=== PATIENT | female | born 1985 | race Caucasian/White ===

== ENCOUNTER 2024-04-16 14:20 | Emergency (ER) | payer BC, SELFPAY ==
--- NOTE | ~2024-04-16 | XR_ITS ---
EXAM: XR wrist RT min 3V DATE: 04/16/2024 14:54 HISTORY: DORSAL PAIN AFTER LIFTING,HX 3 NECROTIC BONES REMOVED . COMPARISON: None available. FINDINGS: Normal mineralization. No fracture or dislocation. No lytic or blastic lesion. Status post scaphoid lunate and triquetrum resections. Irregular ossified fragments anteriorly and posteriorly m ay represent residual portions of those bones or heterotopic ossification. Mild degenerative changes at the radiocarpal articulation and in the second carpal row. No erosion or periosteal change. Soft t issues within normal limits. IMPRESSION: No acute osseous finding in the right wrist. Reviewed, dictated and finalized at location K.
[2024-04-16 14:27] VITALS: BP 127/73; PULSE 76; RESP 16; TEMP 36.9; O2SAT 100
--- NOTE | 2024-04-16 14:56 | ED.UPPEXIN ---
HPI - Extremity Injury (Upper) General Chief Complaint: Extremity Injury, Upper Stated Complaint: right wrist Pain Source: patient Mode of arrival: ambulatory Limitations: no limitations History of Present Illness HPI narrative: [age] year old female presented for c/o right wrist pain after injury today at work. She states she was moving several boxes when she felt a sharp pain in the wrist. Now reports decreased range of motion and swelling over the wrist near thumb. She states it hurts to 'move it backwards.' She applied ice and stephan wrap. 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 Denies numbness, tingling weakness, bruising or deformity. Related Data Home Medications Medication Instructions Recorded Confirmed buspirone 15 mg tablet 15 mg PO DAILY 04/16/24 04/16/24 sertraline 100 mg tablet 100 mg PO DAILY 04/16/24 04/16/24 Allergies Allergy/AdvReac Type Severity Reaction Status Date / Time Penicillins Allergy Hives Verified 04/16/24 14:54 Review of Systems Review of Systems: CONSTITUTIONAL: Denies body aches, fever, chills CARDIOVASCULAR: Denies chest pain, palpitations, or edema. RESPIRATORY: Denies cough or dyspnea. SKIN: Denies rash, itching, or wounds. MUSCULOSKELETAL: reports right wrist pain NEUROLOGIC: Denies headache, numbness, tingling, or weakness. PSYCH: Denies depression or anxiety. All systems reviewed & are unremarkable except as noted in HPI and below [facility] Comments At time of signature, I have reviewed and agree with nursing past medical, surgical, social and family history unless otherwise noted. Please see nursing chart for further information. There is no relevant family history pertinent to the presenting complaint Exam Narrative: GENERAL: Well-appearing CHEST: Speaks in full sentences. No respiratory distress. HEART: Regular rate and rhythm. Normal and equal peripheral pulses. EXTREMITIES: Right wrist with decreased range of motion due to pain with movement. Reports painful finger cascade and with making fist. mild swelling to dorsal radial metacarpal area, tender with palpation. Right hand has normal strength and sensation, No ecchymosis. No open wounds, or obvious deformity; alignment normal, pulse palpable and equal bilaterally, skin warm, dry, pink. Capillary refill less than 3 seconds. SKIN: Warm, dry, no rash. NEURO: Alert and oriented x3. PSYCH: Normal mood and affect Course Course Emergency Course: Patient is aware of diagnosis, understands and agrees to treatment plan. Anticipatory guidance given. Patient agrees to follow-up as directed and is aware of reasons to seek care at the emergency department. Portions of this record may have been created with voice recognition software Level of Care: Express Care Visit Vital Signs Vital signs: Vital Signs Temperature 98.4 F 04/16/24 14:27 Pulse Rate 76 04/16/24 14:27 Respiratory Rate 16 04/16/24 14:27 Blood Pressure 127/73 04/16/24 14:27 Pulse Oximetry 100 04/16/24 14:27 Oxygen Delivery Room Air 04/16/24 14:27 Temperature 98.4 F 04/16/24 14:27 Pulse Rate 76 04/16/24 14:27 Respiratory Rate 16 04/16/24 14:27 Blood Pressure 127/73 04/16/24 14:27 Pulse Oximetry 100 04/16/24 14:27 Oxygen Delivery Room Air 04/16/24 14:27 Reviewed MDM - Extremity Injury (Upper) MDM Narrative Medical decision making narrative: Discussed physical exam findings and x-ray. patient declined lifting restriction work note. Has her own stephan wrap. Advised supportive measures and signs/symptoms to go to the ER. Pt is appropriate for outpt treatment and f/u. Differential Diagnosis Differential diagnosis: Likely other (sprain/strain of wrist, Colles' fracture, wrist fracture, hand fracture, finger sprain, dislocation of finger, gout, cellulitis, arthritis, tendonitis) Imaging Data Radiologist's impression: Patient: Marielos Abernathy : 1985 MR#: [id number]
== END 2024-04-16 15:14 | disposition home or self-care (01) ==
PROVIDERS: Emergency Provider Nurse Practitioner Family; PCP Family Medicine
DX: S63.501A Unspecified sprain of right wrist, initial encounter (principal); S66.911A Strain of unspecified muscle, fascia and tendon at wrist and hand level, right hand, initial encounter; X50.3XXA Overexertion from repetitive movements, initial encounter; Y99.0 Civilian activity done for income or pay; F41.9 Anxiety disorder, unspecified; F32.A Depression, unspecified
CPT/HCPCS: 73110; 99203; G0463

== ENCOUNTER 2024-10-08 08:05 | Emergency (ER) | payer OTHER, SELFPAY ==
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
[2024-10-08 08:11] VITALS: BP 141/92; PULSE 81; RESP 16; TEMP 36.5; O2SAT 100
--- OUTSIDE RECORDS SUMMARY | 2024-10-08 08:12 | XMS_ITS | Clinical Summary ---
Author Organization [facility] Address [address] [place] [address] Phone Care Team Providers Care Director Of Individual Giving Name Role Phone Unavailable Unavailable Unavailable Reason for Visit and Chief Complaint * PHONE CALL Problems Includes: Problems addressed during this encounter and other active Problems All Visits Onset Date Resolved Date Provider Condition S tatus Depression with Anxiety 12/01/2014 LEON CISNEROS PA-C Active Last Documented On 5 1:57PM ; [facility] Arthralgia - Knee / Patella / Tibia / Fibula Left 12/01/2014 LEON MANCERA PA-C Active Last Documented On 5 1:56PM ; [facility] Arthralgias Multiple Sites 12/01/2014 LEON MANCERA PA-C Active Last Documented On 5 1:56PM ; [facility] Vitamin B12 Deficiency 02/24/2013 FLORY FERNANDO [employer]MER-C Active Last Documented On 7 9:33AM ; [facility] Note: Unchanged Esophagitis Chronic Reflux 02/20/2012 LEON MANCERA PA-C Active Last Documented On 3 1:02PM ; [facility] Plan of Treatment No Plan of Treatment Recorded Assessments Includes: Assessments from this encounter No Assessments Recorded Medical Equipment - Implanted Devices Includes: Current Devices No Medical Equipment Recorded Medications Includes: Medications discussed during this encounter and other current Medications Current Medications (continue as prescribed) Sertraline HCl 100MG Oral Tablet 07/24/2018 Provider : VICKI JOINER D.O. Diagnosis: Dysthymic disord er TAKE 2 TABLETS NIGHTLY DIRECTED Last Documented On 07/24/2018 4:34PM By MIGUELINA THOMPSON [facility] Cyanocobalamin 1000 MCG/ML IJ SOLN 08/19/2014 Provid er: LEON MANCERA PA-C Diagnosis: 1ML IM Q MONTH PLEASE DISPEN SE SYRINGES AND NEEDLES 27G X 5/8 IN Last Documented On 08/19/2014 8:21AM By KARINA HAYES ; [facility] BD Eclipse Syringe 25G X 5/8 3 ML MISC 02/10/2014 P rovider: LEON MANCERA PA-C Diagnosis: FOR B-12 Last Documented On 02/10/2014 5:04PM By LEON MANCERA PA-C ; [facility] Past Medications on file LevoFLOXacin 500MG Oral Tablet 05/18/2017 - 05/28/2017 Provider: FLORY US Diagnosis: Acute pansinusit is, unspecified One tablet daily Last Documented On 7 9:52AM By FLORY US ; [facility] Cheratussin AC 100-10MG/5ML Oral Syrup 05/18/2017 - 06/17/2017 Provider: FLORY Falcon Diagnosis: Cough 10 ml oral every 6hrs as needed for cough. Last Documented On 7 9:52AM By FLORY US ; [facility] Azithromycin 250MG Oral Tablet 11/14/2016 - 12/14/2016 Provider: FLORY US Diagnosis: Streptococcal pharyngitis take 500mg oral day one, the n 250mg oral daiy days 2-4. Last Documented On 7 10:07AM By FLORY US ; [facility] Doxycycline Monohydrate 100MG Oral Tablet 10/04/2016 - 10/14/2016 Provider: JOSIANE GIBBS PA-C Diagnosis: One tablet twice a day Last Documented On 7 1:35PM By JOSIANE ADAMS PA-C ; [facility] Valtrex 500 MG Tablet 07/07/2016 - 07/10/2016 Provider: ASHLEY STEWART PA-C Diagnosis: Herpesviral infe ction of urogenital system, unspecified One tablet twice a day Last Documented On 6 12:17PM By ASHLEY STEWART PA-C ; [facility] Cyanocobalamin 1000 MCG/ML Solution 01/28/2016 - 01/30/2016 Provider: VICKI JOINER D.O. Diagnosis: DIRECTED INTRAMUSCULARLY EVERY MONTH PLEASE DISPENSE SYRINGES AND NEEDLES 27GX 8 IN Last Documented On 01/28/2016 11:41AM By ASHLEY RODRÍGUEZ LPN ; [facility] Tamiflu 75 MG Capsule, conventional 09/28/2015 - 10/03/2015 Provider: LEON MANCERA PA-C Diagnosis: Flu due to ident novel influenza A virus w oth resp manifest 1 CAPSULE TWO TIMES A DAY Last Documented On 09/28/2015 2:14PM By LEON MANCERA PA-C ; [facility] Zofran 4 MG Tablet 07/08/2015 - 07/11/2015 Provider: LEON MANCERA PA-C Diagnosis: 1 PO Q 8 H PRN NAUSEA Last Documented On 07/08/2015 3:33PM By LEON MANCERA PA-C ; [facility] Azithromycin 500 MG Tablet 04/27/2015 - 05/02/2015 Pro vider: LEON MANCERA PA-C Diagnosis: One tablet daily Last Documented On 5 12:12PM By LEON MANCERA PA-C ; [facility] Sulfamethoxazole-TMP DS 800- 160 MG OR TABS 08/21/2014 - 08/28/2014 Provider: LEON MANCERA PA-C Diagnosis: Last Documented On 08/21/2014 9:24AM By LEON MANCERA PA-C ; [facility] Ciprofloxacin HCl 250 MG OR TABS 08/19/2014 - 08/26/2014 Provider: LEON MANCERA PA-C Diagnosis: URIN TRACT INFEC TION NOS Last Documented On 08/19/2014 8:36AM By LEON MANCERA PA-C ; [facility] metroNIDAZOLE 500 MG OR TABS 08/19/2014 - 08/20/2014 Provider: LEON MANCERA PA-C Diagnosis: VAGINITIS NOS Last Documented On 08/19/2014 8:37AM By LEON MANCERA PA-C ; [facility] Azithromycin 500 MG OR TABS 06/30/2014 - 07/05/2014 Pr ovider: LEON MANCERA PA-C Diagnosis: Last Documented On 06/30/2014 2:42PM By LEON MANCERA PA-C ; [facility] Azithromycin 500 MG OR TABS 10/20/2013 - 10/25/2013 Provider: LEON MANCERA PA-C Diagnosis: STREP SORE THROA T Last Documented On 10/20/2013 11:21AM By [email or web address] ; [facility] Benzonatate 200 MG OR CAPS 04/16/2013 - 05/01/2013 Pro vider: LEON MANCERA PA-C Diagnosis: Last Documented On 04/16/2013 1:44PM By LEON MANCERA PA-C ; [facility] metroNIDAZOLE 500 MG OR TABS 04/02/2013 - 04/03/2013 P rovider: LEON MANCERA PA-C Diagnosis: Last Documented On 04/02/2013 7:32AM By LEON MANCERA PA-C ; [facility] Cheratussin AC 100-10 MG/5ML OR SYRP 01/16/2013 - 01/26/2013 Provider: LEON MANCERA PA-C Diagnosis: BRONCHITIS NOS take 1 - 2 tsp AT BEDTIME FO R COUGH- DO NOT USE WITH HYDROCODONE INDIO Last Documented On 01/16/2013 8:45AM By LEON MANCERA PA-C ; [facility] Zithromax Z-Dante 250 MG OR TABS 01/16/2013 - 01/21/2013 Provider: LEON MANCERA PA-C Diagnosis: BRONCHITIS NOS Last Documented On 01/16/2013 8:46AM By LEON MANCERA PA-C ; [facility] Meloxicam 15 MG OR TABS 12/05/2012 - 11/30/2013 Provider: VICKI JOINER D.O. Diagnosis: Joint Pain-Lower /Leg Last Documented On 12/05/2012 8:30AM By ASHLEY RODRÍGUEZ LPN ; [facility] Ciprofloxacin HCl 250 MG OR TABS 10/11/2012 - 10/14/2012 Provider: GHULAM US Diagnosis: Last Documented On 3 1:49PM By GHULAM US ; [facility] Levaquin 250 MG OR TABS 05/29/2012 - 06/01/2012 Provid er: VICKI JOINER D.O. Diagnosis: Last Documented On 05/29/2012 11:05AM By ASHLEY RODRÍGUEZ LPN ; [facility] Valtrex 1 GM OR TABS 09/13/2011 - 09/13/2011 Provider: Diagnosis: Last Documented On 05/15/2012 7:54AM By SALLY VELÁSQUEZ MA ; [facility] Medications Administered Includes: Administered Medications from this encounter No Administered Medications Recorded Results Includes: Results discussed during this encounter No Results Recorded For Specified Dates History of Present Illness Includes: History of Present Illness from this encounter No History of Present Illness Recorded Social History Description Last Updated Current smoker 11/14/2016 Last Documented On 7 10:02AM ; [facility] Social history unchanged 11/14/2016 Last Documented On 7 10:02AM ; [facility] A social drinker 02/14/2016 Last Documented On 7 10:02AM ; [facility] Alcohol use 08/19/2014 Last Documented On 7 10:02AM ; [facility] Good exercise habits 08/19/2014 Last Documented On 7 10:02AM ; [facility] No caffeine use 08/19/2014 Last Documented On 7 10:02AM ; [facility] Not using drugs 08/19/2014 Last Documented On 7 10:02AM ; [facility] Sexually active 08/19/2014 Last Documented On 7 10:02AM ; [facility] Tobacco use 08/19/2014 Last Documented On 7 10:02AM ; [facility] Current smoker 09/03/2012 Last Documented On 7 10:02AM ; [facility] Smoking status : Current everyday smoker 12/07/2011 Last Documented On 7 10:02AM ; [facility] Medical History Includes: Medical History addressed during this encounter Description Last Updated Medication history Received controlled s ubstance from another provider 02/14/2016 Last Documented On 7 10:02AM ; [facility] No previous hospitalization for a drug o verdose 02/14/2016 Last Documented On 7 10:02AM ; [facility] No recent change in medical history 01/21 Last Documented On 7 10:02AM ; [facility] 2 08/19/2014 Last Documented On 7 10:02AM ; [facility] Last pap smear date 201108/19/2014 Last Documented On 7 10:02AM ; [facility] Para 1 08/19/2014 Last Documented On 7 10:02AM ; [facility] LMP: 2009 - Mirena 06/17/2013 Last Documented On 7 10:02AM ; [facility] Family History Includes: Family History addressed during this encounter Description Last Updated Family history unchanged 02/14/2016 Last Documented On 7 10:02AM ; [facility] Maternal history of heart disease 2015 Last Documented On 7 10:02AM ; [facility] Paternal history of acute myocardial inf arction 11/03/2015 Last Documented On 7 10:02AM ; [facility] Family history reviewed - unchanged sinc e last visit 06/25/2015 Last Documented On 7 10:02AM ; [facility] Review of Systems Includes: Review of Systems from this encounter No Review of Systems Recorded Mental Status Includes: Mental Status from this encounter No Mental Status Recorded Functional Status Includes: Functional Status from this encounter No Functional Status Recorded Physical Exam Includes: Physical Exam from this encounter No Physical Exam Recorded Allergies Includes: Active Allergies Substance Type Reaction Onset Date Resolved Date Statu s Penicillin V Potassium Allergy Skin Rash es / Eruption of skin, Hives / Urticaria, Nausea, Vomiting, Diarrhea / Diarrheal disorder 05/02/2012 Active Last Documented On 7 9:19AM ; [facility] Encounters Encounter Provider Location Date Check-In Time Check-Out Time Diagnosis * PHONE CALL VICKI JOINER D.O. 01/15/2017 10:02AM 11:59PM Clinical Notes Includes: Clinical Notes from this encounter No Clinical Notes Recorded
--- OUTSIDE RECORDS SUMMARY | 2024-10-08 08:12 | XMS_ITS ---
Author Organization [facility] Address [address] [place] [address] Phone Care Team Providers Care Freezer Assistant Name Role Phone Unavailable Unavailable Unavailable Problems Includes: Active, inactive, and resolved Problems All Visits Onset Date Resolved Date Provider Condition S tatus Depression with Anxiety 12/01/2014 LEON CISNEROS PA-C Active Last Documented On 5 1:57PM ; [facility] Arthralgia - Knee / Patella / Tibia / Fibula Left 12/01/2014 LEON MANCERA PA-C Active Last Documented On 5 1:56PM ; [facility] Arthralgias Multiple Sites 12/01/2014 LEON MANCERA PA-C Active Last Documented On 5 1:56PM ; [facility] Vitamin B12 Deficiency 02/24/2013 FLORY KAPADIAP-C Active Last Documented On 7 9:33AM ; [facility] Note: Unchanged Esophagitis Chronic Reflux 02/20/2012 LEON MANCERA PA-C Active Last Documented On 3 1:02PM ; [facility] Plan of Treatment Findings Encounter Date Ordered follow-up visit as n eeded with an office visit. SICK VISIT with FLORY KAPADIAP-C 05/18/2017 Last Documented On 7 10:02AM ; [facility] Ordered patient to call if altagracia michael develops MED CHECK with ASHLEY STEWART PA-C 08/15/2016 Last Documented On 7 2:11PM ; [facility] Ordered return to the clinic if condition worsens or new symptoms arise MED CHECK with ASHLEY ZUNIGA-Juliana 08/15/2016 Last Documented On 7 2:11PM ; [facility] Ordered follow-up visit MED CHECK with MICHELL Meyers ACOSTA DATA TYPIST-C 05/16/2016 Last Documented On 6 2:53PM ; [facility] Ordered follow-up visit in 3 months MED CHECK with ARPAN MANNAVE HNP-BC DATA TYPIST-BC 02/14/2016 Last Documented On 6 11:32AM ; [facility] Ordered return to the clinic if condition worsens or new symptoms arise MED CHECK with ARPAN Arlette MANNCORINNE HNP-BC DATA TYPIST-BC 02/14/2016 Last Documented On 6 11:32AM ; [facility] Ordered follow-up visit in 6 weeks 2 MONTH CHECK with LEON ZUNIGA-Juliana 11/03/2015 Last Documented On 6 12:16PM ; [facility] Ordered return to the clinic if condition worsens or new symptoms arise 2 MONTH CHECK with LEON ZUNIGA-C 11/03/2015 Last Documented On 6 12:16PM ; [facility] Ordered patient will call r appointment as needed SICK VISIT with LEON ZUNIGA-C 09/28/2015 Last Documented On 6 2:04PM ; [facility] Ordered return to the clinic if condition worsens or new symptoms arise SICK VISIT with LEON ZUNIGA-C 09/28/2015 Last Documented On 6 2:04PM ; [facility] Ordered follow-up visit in 6 weeks GENER AL OFFICE VISIT with LEON ZUNIGA-C 09/21/2015 Last Documented On 6 8:55AM ; [facility] Ordered return to the clinic if condition worsens or new symptoms arise GENERAL OFFICE VISIT with LEON ZUNIGA-C 09/21/2015 Last Documented On 6 8:55AM ; [facility] Ordered follow-up visit in 3 months MED CHECK wi th LEON ZUNIGA-C 06/25/2015 Last Documented On 5 12:12PM ; [facility] Ordered return to the clinic if condition worsens or new symptoms arise MED CHECK with LEON ZUNIGA-C 06/25/2015 Last Documented On 5 12:12PM ; [facility] Ordered follow-up visit in 3 months GENE RAL OFFICE VISIT with LEON ZUNIGA-C 04/01/2015 Last Documented On 5 9:35AM ; [facility] Ordered return to the clinic if condition worsens or new symptoms arise GENERAL OFFICE VISIT with LEON MANCERA PA-C 04/01/2015 Last Documented On 5 9:35AM ; [facility] Ordered follow-up visit in 3 months GENE RAL OFFICE VISIT with LEON ZUNIGA-C 12/01/2014 Last Documented On 5 1:57PM ; [facility] Ordered return to the clinic if condition worsens or new symptoms arise GENERAL OFFICE VISIT with LEON MANCERA PA-C 12/01/2014 Last Documented On 5 1:57PM ; [facility] Ordered patient will call fo r appointment as needed WELL WOMAN EXAM with LEON ZUNIGA-C 08/19/2014 Last Documented On 5 9:03AM ; [facility] Ordered return to the clinic if condition worsens or new symptoms arise WELL WOMAN EXAM with LEON MANCERA PA-C 08/19/2014 Last Documented On 5 9:03AM ; [facility] Ordered patient will call fo r appointment as needed SICK VISIT with LEON MANCERA PA-C 10/20/2013 Last Documented On 4 12:01PM ; [facility] Ordered return to the clinic if condition worsens or new symptoms arise SICK VISIT with LEON MANCERA PA-C 10/20/2013 Last Documented On 4 12:01PM ; [facility] do cervical spine x-ray OMT with JANIYA RICHARDS DO 06/17/2013 Last Documented On 3 9:59PM ; [facility] Ordered an X-ray OMT with JANIYA RICHARDS DO Last Documented On 3 9:59PM ; [facility] Ordered vascular smooth muscle relaxants OMT wit h JANIYA RICHARDS DO 06/17/2013 Last Documented On 3 9:59PM ; [facility] Ordered Clinical summary pro vided to patient OMT with VICKI Reid.OYue 05/21/2013 Last Documented On 3 2:31PM ; [facility] Ordered follow-up visit : as needed basis OMT wi th VICKI Reid.O. 05/21/2013 Last Documented On 3 2:31PM ; [facility] Ordered Clinical summary pro vided to patient HOSPITAL FOLLOW UP EXAM with VICKI Reid.O. 04/15/2013 Last Documented On 3 8:02AM ; [facility] Ordered follow-up visit : af ter the C&S results are available for review, and sooner, prn HOSPITAL FOLLOW UP EXAM with VICKI Reid.Giovanni. 04/15/2013 Last Documented On 3 8:02AM ; [facility] Ordered Clinical summary pro vided to patient OMT with VICKI Reid.O. 04/03/2013 Last Documented On 3 9:14AM ; [facility] Ordered follow-up visit : as needed basis OMT wi th VICKI Reid.O. 04/03/2013 Last Documented On 3 9:14AM ; [facility] Ordered Clinical summary pro vided to patient OMT with VICKI Reid.O. 03/03/2013 Last Documented On 3 7:39AM ; [facility] Ordered follow-up visit : as needed basis OMT wi th VICKI Reid.O. 03/03/2013 Last Documented On 3 7:39AM ; [facility] Ordered Clinical summary pro vided to patient OMT with VICKI Reid.O. 01/10/2013 Last Documented On 3 1:15PM ; [facility] Ordered follow-up visit : as needed basis OMT wi th VICKI Reid.O. 01/10/2013 Last Documented On 3 1:15PM ; [facility] Ordered Clinical summary pro vided to patient SICK VISIT with VICKI Reid.O. 12/05/2012 Last Documented On 3 11:37AM ; [facility] Ordered follow-up visit : as needed basis SICK VISIT with VICKI Reid.O. 12/05/2012 Last Documented On 3 11:37AM ; [facility] Ordered Clinical summary pro vided to patient OMT with VICKI JOINER D.O. 10/16/2012 Last Documented On 3 7:15AM ; [facility] Ordered follow-up visit : as needed basis OMT wi th VICKI JOINER D.O. 10/16/2012 Last Documented On 3 7:15AM ; [facility] Ordered Clinical summary pro vided to patient OMT with VICKI Reid.O. 07/09/2012 Last Documented On 2 1:18PM ; [facility] Ordered follow-up visit : as needed basis OMT wi VICKI Reid.O. 07/09/2012 Last Documented On 2 1:18PM ; [facility] Ordered follow-up visit : as needed basis OMT wi VICKI JOINER D.O. 03/28/2012 Last Documented On 2 7:53AM ; [facility] Ordered follow-up visit : as needed basis OMT wi VICKI JOINER D.O. 03/06/2012 Last Documented On 2 7:20AM ; [facility] Ordered follow-up visit : 1 month, to assess her response to the venlafaxine GENERAL OFFICE VISIT with VICKI Reid.Giovanni. 02/20/2012 Last Documented On 2 11:25PM ; [facility] Ordered follow-up visit : if not better with this treatment plan, and sooner, prn OMT with VICKI Reid.O. 12/07/2011 Last Documented On 2 10:51PM ; [facility] Referrals To Diagnosis Orthopedic OLENA LOPEZ MD Pain in left kne e Last Documented On 7 10:18AM ; [facility] Consultant Education FARIHA NICHOLS MD - [facility] - [address] [place] [address] - Encounter for contraceptive management, unspecified Note: Needs mirena removed a nd replaced. It has been 8 years. Prefers appt in [place]. 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 [facility] - [address] Room [phone] - Idiopathic aseptic necrosis of unspecified bone Last Documented On 7 8:24AM ; [facility] Oncology/Hematology SERGEY Tse S [facility] - [address] [place] [phone] - Idiopathic aseptic necrosis of unspecified bone Last Documented On 7 1:11PM ; [facility] Instructions to patient Instructions for patient Last Documented On 6 8:55AM ; [facility] Go to the emergency room if condition worsens Last Documented On 6 9:06AM ; [facility] Instructions for patient Last Documented On 6 1:58PM ; [facility] Instructions for patient Last Documented On 6 8:41AM ; [facility] Go to the emergency room if condition worsens Last Documented On 6 8:48AM ; [facility] Instructions for patient Last Documented On 5 10:51AM ; [facility] Instructions for patient Last Documented On 5 8:46AM ; [facility] Instructions for patient Last Documented On 5 1:36PM ; [facility] Instructions for patient Last Documented On 5 8:23AM ; [facility] Instructions for patient Last Documented On 4 10:32AM ; [facility] Return to the clinic if cond ition worsens or new symptoms arise Last Documented On 3 1:31PM ; [facility] Go to the emergency room if condition worsens Last Documented On 3 1:31PM ; [facility] Watch for signs/symptoms of infection, return to the clinic if seen Last Documented On 3 3:02PM ; [facility] Education and Decision Aids were provided during visit for: Education and counseling Pavan l office if condition worsens or new symptoms arise. ~ ~Call office with any questions or concerns as needed. ~ ~Patient verbalized understanding of all instructions Last Documented On 7 10:01AM ; [facility] Education and counseling Last Documented On 6 1:58PM ; [facility] Assessments Includes: Assessments for all patient encounters Findings Encounter Date Acute sinusitis SICK VISIT with FLORY FERNANDO FN P-C 05/18/2017 Last Documented On 7 10:02AM ; [facility] Arthralgia of the left knee/patella/tibia/fibula MED CHECK with FLORYDREA FERNANDO DATA TYPIST-C 11/14/2016 Last Documented On 7 10:05AM ; [facility] Arthralgias in multiple sites MED CHECK with SONA FERNANDO DATA TYPIST-C 11/14/2016 Last Documented On 7 10:05AM ; [facility] Chronic reflux esophagitis MED CHECK with FLORYDREA FERNANDO DATA TYPIST-C 11/14/2016 Last Documented On 7 10:05AM ; [facility] Depression with anxiety MED CHECK with FLORYDREA WOLFE DATA TYPIST-C 11/14/2016 Last Documented On 7 10:05AM ; [facility] Vitamin B12 deficiency MED CHECK with FLORYDREA GREENWOOD MEME DATA TYPIST-C 11/14/2016 Last Documented On 7 10:05AM ; [facility] Arthralgia of the left knee/patella/tibia/fibula MED CHECK with ASHLEY ZUNIGA-Juliana 08/15/2016 Last Documented On 7 2:11PM ; [facility] 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 MED CHECK wit h ASHLEY ZUNIGA-C 08/15/2016 Last Documented On 7 2:11PM ; [facility] Herpes simplex * PHONE CALL with ASHLEY LEY PA-C 07/07/2016 Last Documented On 6 12:08PM ; [facility] Arthralgia of the left knee/patella/tibia/fibula MED CHECK with MICHELL TOLENTINOELLO DATA TYPIST-C 05/16/2016 Last Documented On 6 2:53PM ; [facility] Arthralgias in multiple sites MED CHECK with YASMIN ACOSTA DATA TYPIST-C 05/16/2016 Last Documented On 6 2:53PM ; [facility] Arthralgia of the left knee/patella/tibia/fibula MED CHECK with ARPAN SUN PMHNP-BC DATA TYPIST-BC 02/14/2016 Last Documented On 6 11:32AM ; [facility] Depression with anxiety 2 MONTH CHECK with BRITTANY VARGHESERIS PA-C 11/03/2015 Last Documented On 6 12:16PM ; [facility] Influenza type A SICK VISIT with LEON MANCERA PA-C 09/28/2015 Last Documented On 6 2:04PM ; [facility] Arthralgias in multiple sites GENERAL OF FICE VISIT with LEON VARGHESERIS PA-C 09/21/2015 Last Documented On 6 8:55AM ; [facility] Depression with anxiety GENERAL OFFICE VISIT wit h LEON VARGHESERIS PA-C 09/21/2015 Last Documented On 6 8:55AM ; [facility] Arthralgia of the left knee/patella/tibia/fibula MED CHECK with LEON VARGHESERIS PA-C 06/25/2015 Last Documented On 5 12:12PM ; [facility] Arthralgias in multiple sites MED CHECK with JUAN VARGHESERIS PA-C 06/25/2015 Last Documented On 5 12:12PM ; [facility] Arthralgia of the left knee/patella/tibia/fibula GENERAL OFFICE VISIT with LEON VARGHESERIS PA-C 04/01/2015 Last Documented On 5 9:35AM ; [facility] Arthralgias in multiple sites GENERAL OF FICE VISIT with LEON VARGHESERIS PA-C 04/01/2015 Last Documented On 5 9:35AM ; [facility] Chronic reflux esophagitis GENERAL OFFICE VISIT with LEON VARGHESERIS PA-C 04/01/2015 Last Documented On 5 9:35AM ; [facility] Depression with anxiety GENERAL OFFICE VISIT wit h LEON MANCERA PA-C 04/01/2015 Last Documented On 5 9:35AM ; [facility] Vitamin B12 deficiency GENERAL OFFICE VISIT with LEON MANCERA PA-C 04/01/2015 Last Documented On 5 9:35AM ; [facility] Arthralgia of the left knee/patella/tibia/fibula GENERAL OFFICE VISIT with LEON MANCERA PA-C 12/01/2014 Last Documented On 5 1:57PM ; [facility] Arthralgias in multiple sites [facility]-C 12/01/2014 Last Documented On 5 1:57PM ; [facility] Depression with anxiety GENERAL OFFICE VISIT wit h LEON MANCERA PA-C 12/01/2014 Last Documented On 5 1:57PM ; [facility] Vitamin B12 deficiency GENERAL OFFICE VISIT with LEON MANCERA PA-C 12/01/2014 Last Documented On 5 1:57PM ; [facility] Bacterial vaginosis WELL WOMAN EXAM with LEON MANCERA PA-C 08/19/2014 Last Documented On 5 9:03AM ; [facility] Routine gynecological exam w ith cervical pap smear WELL WOMAN EXAM with LEON MANCERA PA-C 08/19/2014 Last Documented On 5 9:03AM ; [facility] Urinary tract infection WELL WOMAN EXAM with JUAN MANCERA PA-C 08/19/2014 Last Documented On 5 9:03AM ; [facility] Vitamin B12 deficiency WELL WOMAN EXAM with TABITHA MANCERA PA-C 08/19/2014 Last Documented On 5 9:03AM ; [facility] Cerumen impaction SICK VISIT with LEON Dillon PA-C 10/20/2013 Last Documented On 4 12:01PM ; [facility] Pharyngitis, Strep SICK VISIT with LEON SAVAGE PA-C 10/20/2013 Last Documented On 4 12:01PM ; [facility] Arthralgias in multiple sites OMT with JANIYA SOLIZ DO 06/17/2013 Last Documented On 3 9:59PM ; [facility] Myalgia and myositis OMT with JANIYA RICHARDS DO 06/17/2013 Last Documented On 3 9:59PM ; [facility] Osteopathic lesions of the cervical region OMT w ith JANIYA RICHARDS DO 06/17/2013 Last Documented On 3 9:59PM ; [facility] Osteopathic lesions of the rib cage OMT with ASHLEIGH RICHARDS DO 06/17/2013 Last Documented On 3 9:59PM ; [facility] Depression with anxiety OMT with VICKI Dillon D.OYue 05/21/2013 Last Documented On 3 2:31PM ; [facility] Lumbar strain OMT with VICKI Reid.O. 1 Last Documented On 3 2:31PM ; [facility] Neck strain OMT with VICKI Reid.O. 1 Last Documented On 3 2:31PM ; [facility] Obesity OMT with VICKI Reid.O. 1 Last Documented On 3 2:31PM ; [facility] Persistent insomnia OMT with VICKI Reid. O. 05/21/2013 Last Documented On 3 2:31PM ; [facility] Somatic dysfunction of cervical region OMT with VICKI Reid.OYue 05/21/2013 Last Documented On 3 2:31PM ; [facility] Somatic dysfunction of lumbar region OMT with RA GUERA Reid.OYue 05/21/2013 Last Documented On 3 2:31PM ; [facility] Somatic dysfunction of thoracic region OMT with VICKI JOINER D.OYue 05/21/2013 Last Documented On 3 2:31PM ; [facility] Thoracic strain OMT with VICKI Reid.O. 1 Last Documented On 3 2:31PM ; [facility] Cephalgia, headache HOSPITAL FOLLOW UP EXAM with VICKI Reid.O. 04/15/2013 Last Documented On 3 8:02AM ; [facility] Depression with anxiety HOSPITAL FOLLOW UP EXAM with VICKI Reid.O. 04/15/2013 Last Documented On 3 8:02AM ; [facility] Lumbar strain HOSPITAL FOLLOW UP EXAM with ROBINSON JOINER D.O. 04/15/2013 Last Documented On 3 8:02AM ; [facility] Neck strain HOSPITAL FOLLOW UP EXAM with ROBINSON JOINER D.O. 04/15/2013 Last Documented On 3 8:02AM ; [facility] Obesity HOSPITAL FOLLOW UP EXAM with ROBINSON JOINER D.O. 04/15/2013 Last Documented On 3 8:02AM ; [facility] Persistent insomnia HOSPITAL FOLLOW UP EXAM with VICKI Reid.O. 04/15/2013 Last Documented On 3 8:02AM ; [facility] Somatic dysfunction of cervical region H OSPITAL FOLLOW UP EXAM with VICKI Reid.O. 04/15/2013 Last Documented On 3 8:02AM ; [facility] Somatic dysfunction of lumbar region HOS PITAL FOLLOW UP EXAM with VICKI Reid.O. 04/15/2013 Last Documented On 3 8:02AM ; [facility] Somatic dysfunction of thoracic region H OSPITAL FOLLOW UP EXAM with VICKI Reid.O. 04/15/2013 Last Documented On 3 8:02AM ; [facility] Thoracic strain HOSPITAL FOLLOW UP EXAM with ROBINSON JOINER D.O. 04/15/2013 Last Documented On 3 8:02AM ; [facility] Depression with anxiety OMT with VICKI Dillon D.O. 04/03/2013 Last Documented On 3 9:14AM ; [facility] Neck strain OMT with VICKI A VOIGTS D.O. 0 04/03/2013 Last Documented On 3 9:14AM ; [facility] Obesity OMT with VICKI A VOIGTS D.O. 0 04/03/2013 Last Documented On 3 9:14AM ; [facility] Persistent insomnia OMT with VICKI A VOIGTS D. O. 04/03/2013 Last Documented On 3 9:14AM ; [facility] Somatic dysfunction of cervical region OMT with VICKI A CARLOSIGTS D.O. 04/03/2013 Last Documented On 3 9:14AM ; [facility] Somatic dysfunction of thoracic region OMT with VICKI A CARLOSIGTS D.O. 04/03/2013 Last Documented On 3 9:14AM ; [facility] Thoracic strain OMT with VICKI A CARLOSIGTS D.O. 0 04/03/2013 Last Documented On 3 9:14AM ; [facility] Depression with anxiety OMT with VICKI A BRICE S D.O. 03/03/2013 Last Documented On 3 7:39AM ; [facility] Neck strain OMT with VICKI A ARNULFOTS D.O. 0 03/03/2013 Last Documented On 3 7:39AM ; [facility] Obesity OMT with VICKI A ARNULFOTS D.O. 0 03/03/2013 Last Documented On 3 7:39AM ; [facility] Persistent insomnia OMT with VICKI A ARNULFOTS D. O. 03/03/2013 Last Documented On 3 7:39AM ; [facility] Somatic dysfunction of cervical region OMT with VICKI A VOIGTS D.O. 03/03/2013 Last Documented On 3 7:39AM ; [facility] Somatic dysfunction of thoracic region OMT with VICKI A VOIGTS D.O. 03/03/2013 Last Documented On 3 7:39AM ; [facility] Thoracic strain OMT with VICKI A CARLOSIGTS D.O. 0 03/03/2013 Last Documented On 3 7:39AM ; [facility] Chronic reflux esophagitis INJECTION with LEON MANCERA PA-C 02/24/2013 Last Documented On 3 1:02PM ; [facility] Vitamin B12 deficiency INJECTION with LEON NICOLAS PA-C 02/24/2013 Last Documented On 3 1:02PM ; [facility] Bronchitis SICK VISIT with LEON MANCERA PA-C 01/16/2013 Last Documented On 3 1:47PM ; [facility] Depression with anxiety OMT with VICKI NARVAEZ S D.O. 01/10/2013 Last Documented On 3 1:15PM ; [facility] Lumbar strain OMT with VICKI JOINER D.O. 0 01/10/2013 Last Documented On 3 1:15PM ; [facility] Neck strain OMT with VICKI JOINER D.O. 0 01/10/2013 Last Documented On 3 1:15PM ; [facility] Obesity OMT with VICKI JOINER D.O. 0 01/10/2013 Last Documented On 3 1:15PM ; [facility] Persistent insomnia OMT with VICKI JOINER D. O. 01/10/2013 Last Documented On 3 1:15PM ; [facility] Somatic dysfunction of cervical region OMT with VICKI JOINER D.O. 01/10/2013 Last Documented On 3 1:15PM ; [facility] Somatic dysfunction of lumbar region OMT with RA GUERA JOINER D.O. 01/10/2013 Last Documented On 3 1:15PM ; [facility] Somatic dysfunction of thoracic region OMT with VICKI JOINER D.O. 01/10/2013 Last Documented On 3 1:15PM ; [facility] Thoracic strain OMT with VICKI JOINER D.O. 0 01/10/2013 Last Documented On 3 1:15PM ; [facility] Urinary tract infection OMT with VICKI NARVAEZ S D.O. 01/10/2013 Last Documented On 3 1:15PM ; [facility] Arthralgia of the left knee/patella/tibia/fibula SICK VISIT with VICKILORIN JOINER D.O. 12/05/2012 Last Documented On 3 11:37AM ; [facility] Depression with anxiety SICK VISIT with VICKILORIN JOINER D.O. 12/05/2012 Last Documented On 3 11:37AM ; [facility] Neck strain SICK VISIT with VICKILORIN JOINER D.O. 12/05/2012 Last Documented On 3 11:37AM ; [facility] Obesity SICK VISIT with VICKILORIN JOINER D.O. 12/05/2012 Last Documented On 3 11:37AM ; [facility] Persistent insomnia SICK VISIT with VICKILORIN PEDERSONS D.O. 12/05/2012 Last Documented On 3 11:37AM ; [facility] Somatic dysfunction of cervical region S ICK VISIT with VICKILORIN JOINER D.O. 12/05/2012 Last Documented On 3 11:37AM ; [facility] Somatic dysfunction of thoracic region S ICK VISIT with VICKILORIN JOINER D.O. 12/05/2012 Last Documented On 3 11:37AM ; [facility] Thoracic strain SICK VISIT with VICKILORIN JOINER D.O. 12/05/2012 Last Documented On 3 11:37AM ; [facility] Depression with anxiety OMT with VICKI NARVAEZ S D.O. 10/16/2012 Last Documented On 3 7:15AM ; [facility] Lumbar strain OMT with VICKILORIN JOINER D.O. 0 10/16/2012 Last Documented On 3 7:15AM ; [facility] Neck strain OMT with VICKILORIN JOINER D.O. 0 10/16/2012 Last Documented On 3 7:15AM ; [facility] Obesity OMT with VICKILORIN JOINER D.O. 0 10/16/2012 Last Documented On 3 7:15AM ; [facility] Persistent insomnia OMT with VICKI JOINER D. O. 10/16/2012 Last Documented On 3 7:15AM ; [facility] Somatic dysfunction of cervical region OMT with VICKI Reid.O. 10/16/2012 Last Documented On 3 7:15AM ; [facility] Somatic dysfunction of lumbar region OMT with RA GUERA JOINER D.O. 10/16/2012 Last Documented On 3 7:15AM ; [facility] Somatic dysfunction of thoracic region OMT with VICKI JOINER D.O. 10/16/2012 Last Documented On 3 7:15AM ; [facility] Thoracic strain OMT with VICKI JOINER D.O. 0 10/16/2012 Last Documented On 3 7:15AM ; [facility] Eustachian tube dysfunction SICK VISIT with TONYA GEORGE DATA TYPIST-C 09/03/2012 Last Documented On 3 3:05PM ; [facility] Onychomycosis of the left 1st toenail OF FICE SURGERY with GHULAM GEORGE DATA TYPIST-C 08/01/2012 Last Documented On 3 2:32PM ; [facility] Lumbar strain OMT with VICKI JOINER D.O. 1 09/09/2011 Last Documented On 2 1:18PM ; [facility] Neck strain OMT with VICKI JOINER D.O. 1 09/09/2011 Last Documented On 2 1:18PM ; [facility] Sacroiliac region strain OMT with VICKI CORREA D.O. 07/09/2012 Last Documented On 2 1:18PM ; [facility] Somatic dysfunction of cervical region OMT with VICKI Reid.O. 07/09/2012 Last Documented On 2 1:18PM ; [facility] Somatic dysfunction of lumbar region OMT with RA GUERA JOINER D.O. 07/09/2012 Last Documented On 2 1:18PM ; [facility] Somatic dysfunction of sacroiliac region OMT wit h VICKI JOINER D.O. 07/09/2012 Last Documented On 2 1:18PM ; [facility] Somatic dysfunction of thoracic region OMT with VICKI JOINER D.O. 07/09/2012 Last Documented On 2 1:18PM ; [facility] Thoracic strain OMT with VICKI JOINER D.O. 1 09/09/2011 Last Documented On 2 1:18PM ; [facility] Cervicalgia SICK VISIT with LEON MANCERA PA-C 06/03/2012 Last Documented On 2 10:23AM ; [facility] Common cold SICK VISIT with LEON MANCERA PA-C 06/03/2012 Last Documented On 2 10:23AM ; [facility] Neck strain OMT with VICKI JOINER D.O. 0 03/28/2012 Last Documented On 2 7:53AM ; [facility] Somatic dysfunction of cervical region OMT with VICKI JOINER D.O. 03/28/2012 Last Documented On 2 7:53AM ; [facility] Somatic dysfunction of thoracic region OMT with VICKI JOINER D.O. 03/28/2012 Last Documented On 2 7:53AM ; [facility] Sprained medial collateral l igament of the left knee OMT with VICKI JOINER D.O. 03/28/2012 Last Documented On 2 7:53AM ; [facility] Thoracic strain OMT with VICKI JOINER D.O. 0 03/28/2012 Last Documented On 2 7:53AM ; [facility] Depression with anxiety OMT with VICKI NARVAEZ S D.O. 03/06/2012 Last Documented On 2 7:20AM ; [facility] Esophageal reflux OMT with VICKI JOINER D.O. 03/06/2012 Last Documented On 2 7:20AM ; [facility] Lumbar strain OMT with VICKI JOINER D.O. 0 03/06/2012 Last Documented On 2 7:20AM ; [facility] Neck strain OMT with VICKI JOINER D.O. 0 03/06/2012 Last Documented On 2 7:20AM ; [facility] Obesity OMT with VICKI JOINRE D.O. 0 03/06/2012 Last Documented On 2 7:20AM ; [facility] Persistent insomnia OMT with VICKI JOINER D. O. 03/06/2012 Last Documented On 2 7:20AM ; [facility] Somatic dysfunction of cervical region OMT with VICKI JOINER D.O. 03/06/2012 Last Documented On 2 7:20AM ; [facility] Somatic dysfunction of lumbar region OMT with RA GUERA JOINER D.O. 03/06/2012 Last Documented On 2 7:20AM ; [facility] Somatic dysfunction of thoracic region OMT with VICKI JOINER D.O. 03/06/2012 Last Documented On 2 7:20AM ; [facility] Thoracic strain OMT with VICKI JOINER D.O. 0 03/06/2012 Last Documented On 2 7:20AM ; [facility] Vitamin B12 deficiency OMT with VICKI JOINER D.O. 03/06/2012 Last Documented On 2 7:20AM ; [facility] Depression with anxiety GENERAL OFFICE VISIT wit h VICKI JOINER D.O. 02/20/2012 Last Documented On 2 11:25PM ; [facility] Esophageal reflux GENERAL OFFICE VISIT with KATIE JOINER D.O. 02/20/2012 Last Documented On 2 11:25PM ; [facility] Obesity GENERAL OFFICE VISIT with KAY Reid.O. 02/20/2012 Last Documented On 2 11:25PM ; [facility] Onychomycosis of the left 1st toenail GE NERAL OFFICE VISIT with VICKI JOINER D.O. 02/20/2012 Last Documented On 2 11:25PM ; [facility] Persistent insomnia GENERAL OFFICE VISIT with RA GUERA Reid.O. 02/20/2012 Last Documented On 2 11:25PM ; [facility] Vitamin B12 deficiency GENERAL OFFICE VISIT with VICKI Reid.O. 02/20/2012 Last Documented On 2 11:25PM ; [facility] Normal pre-employment screening examination LAB with VICKI Reid.O. 02/07/2012 Last Documented On 2 1:21PM ; [facility] Vitamin B12 deficiency * PHONE CALL with VIKCI Reid.O. 01/18/2012 Last Documented On 2 5:13PM ; [facility] Depression with anxiety OMT with VICKI Dillon D.O. 12/07/2011 Last Documented On 2 10:51PM ; [facility] Esophageal reflux OMT with VICKI Reid.O. 12/07/2011 Last Documented On 2 10:51PM ; [facility] Lumbar strain OMT with VICKI JOINER D.O. 0 12/07/2011 Last Documented On 2 10:51PM ; [facility] Neck strain OMT with VICKI JOINER D.O. 0 12/07/2011 Last Documented On 2 10:51PM ; [facility] Obesity OMT with VICKI JOINER D.O. 0 12/07/2011 Last Documented On 2 10:51PM ; [facility] Persistent insomnia OMT with VICKI JOINER D. O. 12/07/2011 Last Documented On 2 10:51PM ; [facility] Somatic dysfunction of cervical region OMT with VICKI Reid.O. 12/07/2011 Last Documented On 2 10:51PM ; [facility] Somatic dysfunction of lumbar region OMT with RA GUERA JOINER D.O. 12/07/2011 Last Documented On 2 10:51PM ; [facility] Somatic dysfunction of thoracic region OMT with VICKI JOINER D.O. 12/07/2011 Last Documented On 2 10:51PM ; [facility] Thoracic strain OMT with VICKI JOINER D.O. 0 12/07/2011 Last Documented On 2 10:51PM ; [facility] Vitamin B12 deficiency OMT with VICKI JOINER D.O. 12/07/2011 Last Documented On 2 10:51PM ; [facility] Instructions Includes: Instructions for all patient encounters Instructions to patient Instructions for patient Last Documented On 6 8:55AM ; [facility] Go to the emergency room if condition worsens Last Documented On 6 9:06AM ; [facility] Instructions for patient Last Documented On 6 1:58PM ; [facility] Instructions for patient Last Documented On 6 8:41AM ; [facility] Go to the emergency room if condition worsens Last Documented On 6 8:48AM ; [facility] Instructions for patient Last Documented On 5 10:51AM ; [facility] Instructions for patient Last Documented On 5 8:46AM ; [facility] Instructions for patient Last Documented On 5 1:36PM ; [facility] Instructions for patient Last Documented On 5 8:23AM ; [facility] Instructions for patient Last Documented On 4 10:32AM ; [facility] Return to the clinic if cond ition worsens or new symptoms arise Last Documented On 3 1:31PM ; [facility] Go to the emergency room if condition worsens Last Documented On 3 1:31PM ; [facility] Watch for signs/symptoms of infection, return to the clinic if seen Last Documented On 3 3:02PM ; [facility] Education and Decision Aids were provided during visit for: Education and counseling Pavan l office if condition worsens or new symptoms arise. ~ ~Call office with any questions or concerns as needed. ~ ~Patient verbalized understanding of all instructions Last Documented On 7 10:01AM ; [facility] Education and counseling Last Documented On 6 1:58PM ; [facility] Medical Equipment - Implanted Devices Includes: Current and historical Devices No Medical Equipment Recorded Medications Includes: Current and historical Medications Current Medications (continue as prescribed) Sertraline HCl 100MG Oral Tablet 07/24/2018 Provider : VICKI JOINER D.O. Diagnosis: Dysthymic disord er TAKE 2 TABLETS NIGHTLY DIRECTED Last Documented On 07/24/2018 4:34PM By MIGUELINA JOINER DO ; [facility] Cyanocobalamin 1000 MCG/ML IJ SOLN 08/19/2014 Provid er: LEON MANCERA PA-C Diagnosis: 1ML IM Q MONTH PLEASE DISPEN SE SYRINGES AND NEEDLES 27G X 5/8 IN Last Documented On 08/19/2014 8:21AM By KARINA HAYES ; [facility] BD Eclipse Syringe 25G X 5/8 3 ML MISC 02/10/2014 P rovider: LEON MANCERA PA-C Diagnosis: FOR B-12 Last Documented On 02/10/2014 5:04PM By LEON MANCERA PA-C ; [facility] Past Medications on file Sertraline HCl 100MG Oral Tablet 07/04/2017 - 07/24/2018 Provider: VICKI JOINER D.O. Diagnosis: Dysthymic disord er TWO TABLETS NIGHTLY, DIRECTED. Last Documented On 07/24/2018 4:22PM By MIGUELINA JOINER DO ; [facility] LevoFLOXacin 500MG Oral Tablet 05/18/2017 - 05/28/2017 Provider: FLORY US Diagnosis: Acute pansinusit is, unspecified One tablet daily Last Documented On 7 9:52AM By FLORY US ; [facility] Cheratussin AC 100-10MG/5ML Oral Syrup 05/18/2017 - 06/17/2017 Provider: FLORY Falcon Diagnosis: Cough 10 ml oral every 6hrs as needed for cough. Last Documented On 7 9:52AM By FLORY US ; [facility] Azithromycin 250MG Oral Tablet 11/14/2016 - 12/14/2016 Provider: FLORY US Diagnosis: Streptococcal pharyngitis take 500mg oral day one, the n 250mg oral daiy days 2-4. Last Documented On 7 10:07AM By FLORY US ; [facility] Hydrocodone-Acetaminophen 7.5-325MG Oral Tablet 11/14/2016 - 11/14/2016 Provider: VICKI JOINER D.O. Diagnosis: Pain in unspecif ied joint 1 four times daily prn sever e pain. MAY FILL ON/AFTER 11-18-16 Last Documented On 11/14/2016 10:04AM By ASHLEY RODRÍGUEZ LPN ; [facility] Hydrocodone-Acetaminophen 7.5-325MG Oral Tablet 11/14/2016 - 05/18/2017 Provider: VICKI JOINER D.O. Diagnosis: Pain in unspecif ied joint 1 four times daily prn sever e pain. MAY FILL ON/AFTER 11-16-16 Last Documented On 05/18/2017 9:19AM By BECKY POLK LPN ; [facility] Hydrocodone-Acetaminophen 7.5-325MG Oral Tablet 10/13/2016 - 11/14/2016 Provider: VIKCI JOINER D.O. Diagnosis: Pain in unspecif ied joint 1 four times daily prn sever e pain. MAY FILL ON/AFTER 10-19-16 Last Documented On 11/14/2016 9:56AM By MIGUELINA JOINER DO ; [facility] Doxycycline Monohydrate 100MG Oral Tablet 10/04/2016 - 10/14/2016 Provider: JOSIANE GIBBS PA-C Diagnosis: One tablet twice a day Last Documented On 7 1:35PM By JOSIANE ADAMS PA-C ; [facility] Hydrocodone-Acetaminophen 7.5-325MG Oral Tablet 09/18/2016 - 10/13/2016 Provider: MISAEL CRUZ PA-C Diagnosis: Pain in unspecif ied joint 1 four times daily prn sever e pain. FILL ON/AFTER 09-19-16 Last Documented On 10/13/2016 10:18AM By MIGUELINA JOINER DO ; [facility] Hydrocodone-Acetaminophen 7.5-325MG Oral Tablet 08/15/2016 - 09/18/2016 Provider: ASHLEY STEWART PA-C Diagnosis: Pain in unspecified joint 1 four times daily prn sever e pain. FILL ON/AFTER 08-19-16 Last Documented On 7 11:58AM By MISAEL CRUZ PA-C ; [facility] Hydrocodone-Acetaminophen 7.5-325 MG Tablet 07/20/2016 - 08/15/2016 Provider: ASHLEY STEWART PA-C Diagnosis: Pain in unspecified joint 1 four times daily prn severe pain. Last Documented On 08/15/2016 2:03PM By KARINA HAYES ; [facility] Valtrex 500 MG Tablet 07/07/2016 - 07/10/2016 Provider: ASHLEY STEWART PA-C Diagnosis: Herpesviral infe ction of urogenital system, unspecified One tablet twice a day Last Documented On 6 12:17PM By ASHLEY STEWART PA-C ; [facility] Hydrocodone-Acetaminophen 7. 5-325 MG Tablet 06/21/2016 - 07/20/2016 Provider: JOSIANE ADAMS PA-C Diagnosis: Pain in unspecified joint 1 four times daily prn severe pain. Last Documented On 6 8:31AM By ASHLEY STEWART PA-C ; [facility] Sertraline HCl 100 MG Tablet 06/13/2016 - 07/04/2017 Provider: VICKI JOINER D.O. Diagnosis: Dysthymic disord er Two tablets nightly, as directed. Last Documented On 07/04/2017 9:15AM By MIGUELINA JOINER DO ; [facility] Hydrocodone-Acetaminophen 7. 5-325 MG Tablet 05/16/2016 - 06/21/2016 Provider: VICKI JOINER D.O. Diagnosis: Pain in unspecif ied joint 1 four times daily prn sever e pain. May fill on or after 05-22-16 Last Documented On 6 8:40AM By JOSIANE ADAMS PA-C ; [facility] Hydrocodone-Acetaminophen 7. 5-325 MG Tablet 04/20/2016 - 05/16/2016 Provider: VICKI JOINER D.O. Diagnosis: Pain in unspecif ied joint 1 four times daily prn sever e pain. May fill on or after 04-22-16 Last Documented On 05/16/2016 11:10AM By MIGUELINA JOINER DO ; [facility] Hydrocodone-Acetaminophen 7. 5-325 MG Tablet 03/20/2016 - 04/20/2016 Provider: VICKI JOINER D.O. Diagnosis: Pain in unspecif ied joint 1 four times daily prn sever e pain. May fill on or after 03-23-16 Last Documented On 04/20/2016 12:58PM By MIGUELINA JOINER DO ; [facility] Hydrocodone-Acetaminophen 7. 5-325 MG Tablet 02/14/2016 - 03/20/2016 Provider: ARPAN SUN PMNICOLE- DATA TYPIST- Diagnosis: Pain in unspecif ied joint 1 four times daily prn severe painFILL ON; 6 Last Documented On 03/20/2016 4:44PM By MIGUELINA JOINER DO ; [facility] Zoloft 100 MG Tablet 02/14/2016 - 08/15/2016 Provider: Diagnosis: Last Documented On 08/15/2016 1:54PM By KARINA HAYES ; [facility] Sertraline HCl 100 MG Tablet 01/28/2016 - 02/14/2016 Provider: VICKI JOINER D.O. Diagnosis: Dysthymic disord er 2 TABS NIGHTLY Last Documented On 02/14/2016 10:37AM By KARINA HAYES ; [facility] Cyanocobalamin 1000 MCG/ML Solution 01/28/2016 - 01/30/2016 Provider: VICKI JOINER D.O. Diagnosis: DIRECTED INTRAMUSCULARLY EVERY MONTH PLEASE DISPENSE SYRINGES AND NEEDLES 27GX 5/8 IN Last Documented On 01/28/2016 11:41AM By ASHLEY RODRÍGUEZ LPN ; [facility] Hydrocodone-Acetaminophen 7. 5-325 MG Tablet 01/18/2016 - 02/14/2016 Provider: LEON MANCERA PA-C Diagnosis: Pain in unspecif ied joint 1 four times daily prn sever e pain. due 01-24-16 MAY FILL 01-22-16 Last Documented On 6 10:49AM By ARPAN KAPADIAP- ; [facility] Hydrocodone-Acetaminophen 7. 5-325 MG Tablet 12/23/2015 - 01/18/2016 Provider: LEON MANCERA PA-C Diagnosis: Pain in unspecif ied joint 1 four times daily prn severe pain. due 12-25-15 Last Documented On 01/18/2016 4:50PM By LEON MANCERA PA-C ; [facility] Hydrocodone-Acetaminophen 7. 5-325 MG Tablet 11/23/2015 - 12/23/2015 Provider: LEON MANCERA PA-C Diagnosis: Pain in unspecif ied joint 1 four times daily prn severe pain. due 11-25-15 Last Documented On 6 12:09PM By LEON MANCERA PA-C ; [facility] Sertraline HCl 100 MG Tablet 11/03/2015 - 01/28/2016 Provider: LEON MANCERA PA-C Diagnosis: Dysthymic disord er 2 tabs nightly Last Documented On 01/28/2016 11:36AM By ASHLEY RODRÍGUEZ LPN ; [facility] Hydrocodone-Acetaminophen 7. 5-325 MG Tablet 10/22/2015 - 11/23/2015 Provider: LEON MANCERA PA-C Diagnosis: Pain in unspecif ied joint 1 four times daily prn severe pain. due 10-26-15 Last Documented On 6 12:20PM By LEON MANCERA PA-C ; [facility] Tamiflu 75 MG Capsule, conventional 09/28/2015 - 10/03/2015 Provider: LEON MANCERA PA-C Diagnosis: Flu due to ident novel influenza A virus w oth resp manifest 1 CAPSULE TWO TIMES A DAY Last Documented On 09/28/2015 2:14PM By LEON MANCERA PA-C ; [facility] Sertraline HCl 100 MG Tablet 09/21/2015 - 11/03/2015 Provider: LEON MANCERA PA-C Diagnosis: Dysthymic disord er 1/2 tab at bedtime x 4 night s then 1 tab nightly Last Documented On 11/03/2015 9:08AM By LEON MANCERA PA-C ; [facility] Hydrocodone-Acetaminophen 7. 5-325 MG Tablet 09/21/2015 - 10/22/2015 Provider: LEON MANCERA PA-C Diagnosis: Pain in unspecif ied joint 1 four times daily prn sever e pain. due 3-6-16 ok for 09-25-15 Last Documented On 6 12:16PM By LEON MANCERA PA-C ; [facility] Hydrocodone-Acetaminophen 7. 5-325 MG Tablet 08/27/2015 - 08/27/2015 Provider: LEON MANCERA PA-C Diagnosis: Pain in unspecif ied joint 1 four times daily prn severe pain. for 08-27-15 Last Documented On 08/27/2015 5:04PM By LEON MANCERA PA-C ; [facility] Hydrocodone-Acetaminophen 7. 5-325 MG Tablet 08/27/2015 - 09/21/2015 Provider: LEON MANCERA PA-C Diagnosis: Pain in unspecif ied joint 1 four times daily prn severe pain. for 08-27-15 Last Documented On 09/21/2015 8:53AM By LEON MANCERA PA-C ; [facility] Hydrocodone-Acetaminophen 7. 5-325 MG Tablet 07/26/2015 - 08/27/2015 Provider: LEON MANCERA PA-C Diagnosis: Pain in unspecif ied joint 1 four times daily prn severe pain. for 07-28-15 Last Documented On 08/27/2015 3:07PM By LEON MANCERA PA-C ; [facility] Zofran 4 MG Tablet 07/08/2015 - 07/11/2015 Provider: LEON MANCERA PA-C Diagnosis: 1 PO Q 8 H PRN NAUSEA Last Documented On 07/08/2015 3:33PM By LEON MANCERA PA-C ; [facility] Hydrocodone-Acetaminophen 7. 5-325 MG Tablet 06/24/2015 - 07/26/2015 Provider: LEON MANCERA PA-C Diagnosis: Pain in unspecif ied joint 1 four times daily prn severe pain. for 06-28-15 Last Documented On 07/26/2015 4:56PM By LEON MANCERA PA-C ; [facility] Hydrocodone-Acetaminophen 7. 5-325 MG Tablet 05/26/2015 - 06/24/2015 Provider: LEON MANCERA PA-C Diagnosis: Pain in unspecif ied joint 1 four times daily prn severe pain. for 05-29-15 Last Documented On 5 12:05PM By LEON MANCERA PA-C ; [facility] Hydrocodone-Acetaminophen 7. 5-325 MG Tablet 04/29/2015 - 05/26/2015 Provider: LEON MANCERA PA-C Diagnosis: Pain in unspecif ied joint 1 four times daily prn severe pain. Last Documented On 5 11:44AM By LEON MANCERA PA-C ; [facility] Azithromycin 500 MG Tablet 04/27/2015 - 05/02/2015 Pro vider: LEON MANCERA PA-C Diagnosis: One tablet daily Last Documented On 5 12:12PM By LEON MANCERA PA-C ; [facility] Hydrocodone-Acetaminophen 7. 5-325 MG Tablet 04/01/2015 - 04/29/2015 Provider: LEON MANCERA PA-C Diagnosis: JOINT PAIN-JT NE C 1 four times daily prn severe pain. Last Documented On 5 11:26AM By LEON MANCERA PA-C ; [facility] Hydrocodone-Acetaminophen 7. 5-325 MG Tablet 02/26/2015 - 04/01/2015 Provider: LEON MANCERA PA-C Diagnosis: JOINT PAIN-JT NE C 1 four times daily prn sever e pain. DUE 815 May fill on or after 8-8-15. Last Documented On 04/01/2015 8:47AM By KARINA HAYES ; [facility] Hydrocodone-Acetaminophen 7. 5-325 MG Tablet 01/28/2015 - 02/26/2015 Provider: VICKI JOINER D.O. Diagnosis: JOINT PAIN-JT NE C 1 four times daily prn sever e pain. May fill on or after 7-10-15. Last Documented On 02/26/2015 4:07PM By LEON MANCERA PA-C ; [facility] Hydrocodone-Acetaminophen 7. 5-325 MG Tablet 12/30/2014 - 01/28/2015 Provider: LEON MANCERA PA-C Diagnosis: JOINT PAIN-JT NE C 1 four times daily prn sever e pain. May fill on or after -10-15. Last Documented On 01/28/2015 11:34AM By ASHLEY RODRÍGUEZ LPN ; [facility] Hydrocodone-Acetaminophen 7. 5-325 MG Tablet 12/01/2014 - 12/30/2014 Provider: LEON MANCERA PA-C Diagnosis: JOINT PAIN-JT NE C 1 four times daily prn sever e pain. May fill on or after 11-30-14. Last Documented On 12/30/2014 7:59AM By LEON MANCERA PA-C ; [facility] Sertraline HCl 100 MG Tablet 12/01/2014 - 04/01/2015 Altagracia schwartzder: LEON MANCERA PA-C Diagnosis: as directed TAKE 2 ONCE A DAY Last Documented On 04/01/2015 8:46AM By KARINA HAYES ; [facility] Hydrocodone-Acetaminophen 7. 5-325 MG Tablet 10/29/2014 - 12/01/2014 Provider: LEON MANCERA PA-C Diagnosis: JOINT PAIN-JT NE C 1 four times daily prn sever e pain. May fill on or after 10-30-14. Last Documented On 12/01/2014 1:53PM By LEON MANCERA PA-C ; [facility] Hydrocodone-Acetaminophen 7. 5-325 MG Tablet 09/30/2014 - 10/29/2014 Provider: LEON MANCERA PA-C Diagnosis: JOINT PAIN-JT NE C 1 four times daily prn sever e pain. May fill on or after 09-30-14. Last Documented On 10/29/2014 4:31PM By LEON MANCERA PA-C ; [facility] Sulfamethoxazole-TMP DS 800- 160 MG OR TABS 08/21/2014 - 08/28/2014 Provider: LEON MANCERA PA-C Diagnosis: Last Documented On 08/21/2014 9:24AM By LEON MANCERA PA-C ; [facility] Sertraline HCl 100 MG OR TABS 08/19/2014 - 12/01/2014 Provider: LEON MANCERA PA-C Diagnosis: TAKE 2 ONCE A DAY Last Documented On 12/01/2014 1:37PM By KARINA HAYES ; [facility] Sertraline HCl 100 MG OR TABS 08/19/2014 - 12/01/2014 Provider: Diagnosis: TAKE 2 ONCE A DAY Last Documented On 12/01/2014 1:37PM By KARINA HAYES ; [facility] Ciprofloxacin HCl 250 MG OR TABS 08/19/2014 - 08/26/2014 Provider: LEON MANCERA PA-C Diagnosis: URIN TRACT INFEC TION NOS Last Documented On 08/19/2014 8:36AM By LEON MANCERA PA-C ; [facility] metroNIDAZOLE 500 MG OR TABS 08/19/2014 - 08/20/2014 Provider: LEON MANCERA PA-C Diagnosis: VAGINITIS NOS Last Documented On 08/19/2014 8:37AM By LEON MANCERA PA-C ; [facility] HYDROcodone-Acetaminophen 7. 5-325 MG OR TABS 08/19/2014 - 09/30/2014 Provider: LEON MANCERA PA-C Diagnosis: JOINT PAIN-JT NE C prn severe pain. May fill on or after 08-19-14. Last Documented On 11:43AM By LEON MANCERA PA-C ; [facility] HYDROcodone-Acetaminophen 7. 5-325 MG OR TABS 07/13/2014 - 08/19/2014 Provider: VICKI JOINER D.O. Diagnosis: JOINT PAIN-JT NE C prn severe pain. GABLES May fill on or after 07-15-14. Last Documented On 08/19/2014 8:42AM By LEON MANCERA PA-C ; [facility] Azithromycin 500 MG OR TABS 06/30/2014 - 07/05/2014 Pr ovider: LEON MANCERA PA-C Diagnosis: Last Documented On 06/30/2014 2:42PM By LEON MANCERA PA-C ; [facility] HYDROcodone-Acetaminophen 7. 5-325 MG OR TABS 06/15/2014 - 07/13/2014 Provider: VICKI JOINER D.O. Diagnosis: JOINT PAIN-JT NE C prn severe pain. GABGERRY Last Documented On 07/13/2014 11:58AM By MIGUELINA THOMPSON [facility] HYDROcodone-Acetaminophen 7. 5-325 MG OR TABS 04/30/2014 - 06/15/2014 Provider: VICKI JOINER D.O. Diagnosis: JOINT PAIN-JT NE C prn severe pain. GABLES May fill on or after -14 Last Documented On 06/15/2014 11:23AM By MIGUELINA JOINER DO ; [facility] HYDROcodone-Acetaminophen 7. 5-325 MG OR TABS 04/09/2014 - 04/30/2014 Provider: VICKI JOINER D.O. Diagnosis: JOINT PAIN-JT NE C prn severe pain. GABLES May fill on or after -2 0-14 Last Documented On 04/30/2014 12:53PM By MIGUELINA JOINER DO ; [facility] HYDROcodone-Acetaminophen 7. 5-325 MG OR TABS 03/12/2014 - 04/09/2014 Provider: VICKI JOINER D.O. Diagnosis: JOINT PAIN-JT NE C prn severe pain. GABLES Last Documented On 04/09/2014 12:54PM By MIGUELINA JOINER DO ; [facility] HYDROcodone-Acetaminophen 7. 5-325 MG OR TABS 02/09/2014 - 03/12/2014 Provider: LEON MANCERA PA-C Diagnosis: JOINT PAIN-JT NE C prn severe pain. GABLES Last Documented On 03/12/2014 3:47PM By MIGUELINA JOINER DO ; [facility] Ambien 10 MG OR TABS 02/06/2014 - 04/01/2015 Provider: VICKI JOINER D.O. Diagnosis: PERSISTENT INSOM JUWAN prn sleep. INDIO Last Documented On 04/01/2015 8:46AM By KARINA HAYES ; [facility] Cyanocobalamin 1000 MCG/ML I J SOLN 01/13/2014 - 08/19/2014 Provider: LEON MANCERA PA-C Diagnosis: 1ML IM Q MONTH PLEASE DISPEN SE SYRINGES AND NEEDLES 27G X 5/8 IN Last Documented On 08/19/2014 8:21AM By KARINA HAYES ; [facility] HYDROcodone-Acetaminophen 7. 5-325 MG OR TABS 01/09/2014 - 02/09/2014 Provider: LEON MANCERA PA-C Diagnosis: JOINT PAIN-JT NE C prn severe pain. GABLES Last Documented On 02/09/2014 4:21PM By LEON MANCERA PA-C ; [facility] HYDROcodone-Acetaminophen 7. 5-325 MG OR TABS 12/09/2013 - 01/09/2014 Provider: VICKI JOINER D.O. Diagnosis: JOINT PAIN-JT NE C prn severe pain. GABLES Last Documented On 01/09/2014 2:44PM By LEON MANCERA PA-C ; [facility] HYDROcodone-Acetaminophen 7. 5-325 MG OR TABS 11/10/2013 - 12/09/2013 Provider: VICKI JOINER D.O. Diagnosis: JOINT PAIN-JT NE C prn severe pain. GABLES Last Documented On 12/09/2013 10:08PM By MIGUELINA JOINER DO ; [facility] Azithromycin 500 MG OR TABS 10/20/2013 - 10/25/2013 Provider: LEON MANCERA PA-C Diagnosis: STREP SORE THROA T Last Documented On 10/20/2013 11:21AM By [email or web address] ; [facility] HYDROcodone-Acetaminophen 7. 5-325 MG OR TABS 10/08/2013 - 11/10/2013 Provider: LOEN MANCERA PA-C Diagnosis: JOINT PAIN-JT NE C prn severe pain. GABLES 10-10-13 Last Documented On 11/10/2013 12:55PM By MIGUELINA JOINER DO ; [facility] HYDROcodone-Acetaminophen 7. 5-325 MG OR TABS 09/10/2013 - 10/08/2013 Provider: LEON MANCERA PA-C Diagnosis: JOINT PAIN-JT NE C prn severe pain. GABLES 09-10-13 Last Documented On 10/08/2013 3:43PM By LEON MANCERA PA-C ; [facility] HYDROcodone-Acetaminophen 7. 5-325 MG OR TABS 08/11/2013 - 09/10/2013 Provider: LENO MANCERA PA-C Diagnosis: JOINT PAIN-JT NE C prn severe pain. GABLES 08-11-13 Last Documented On 09/10/2013 9:42AM By LEON MANCERA PA-C ; [facility] Cyanocobalamin 1000 MCG/ML I J SOLN 07/14/2013 - 01/13/2014 Provider: LEON MANCERA PA-C Diagnosis: 1ML IM Q MONTH PLEASE DISPEN SE SYRINGES AND NEEDLES 27G X 5/8 IN Last Documented On 4 10:16AM By LEON MANCERA PA-C ; [facility] HYDROcodone-Acetaminophen 7. 5-325 MG OR TABS 07/10/2013 - 08/11/2013 Provider: LEON MANCERA PA-C Diagnosis: JOINT PAIN-JT NE C prn severe pain. GABLES 07-12-13 Last Documented On 4 11:48AM By LEON MANCERA PA-C ; [facility] HYDROcodone-Acetaminophen 7. 5-325 MG OR TABS 06/11/2013 - 07/10/2013 Provider: LEON MANCERA PA-C Diagnosis: JOINT PAIN-JT NE C prn severe pain. GABGERRY 06-12-13 Last Documented On 07/10/2013 4:13PM By LEON MANCERA PA-C ; [facility] Zoloft 100 MG OR TABS 06/09/2013 - 08/19/2014 Provider : VICKI JOINER D.O. Diagnosis: DYSTHYMIC DISORD ER Last Documented On 08/19/2014 8:22AM By KARINA HAYES ; [facility] Zoloft 100 MG OR TABS 06/02/2013 - 06/09/2013 Provider : VICKI JOINER D.O. Diagnosis: DYSTHYMIC DISORD ER Two tablets daily. Last Documented On 06/09/2013 9:07AM By ASHLEY RODRÍGUEZ LPN ; [facility] HYDROcodone-Acetaminophen 7. 5-325 MG OR TABS 05/13/2013 - 06/11/2013 Provider: VICKI JOINER D.O. Diagnosis: JOINT PAIN-JT NE C prn severe pain. [facility] Last Documented On 06/11/2013 7:48AM By LEON MANCERA PA-C ; [facility] Benzonatate 200 MG OR CAPS 04/16/2013 - 05/01/2013 Pro vider: LEON MANCERA PA-C Diagnosis: Last Documented On 04/16/2013 1:44PM By LEON MANCERA PA-C ; [facility] flexeril 10mg OR TABS 04/15/2013 - 08/19/2014 Provider : Diagnosis: Last Documented On 08/19/2014 8:21AM By KARINA HAYES ; [facility] HYDROcodone-Acetaminophen 7. 5-325 MG OR TABS 04/10/2013 - 05/13/2013 Provider: VICKI JOINER D.O. Diagnosis: JOINT PAIN-JT NE C prn severe pain. [facility] May fill on or after 04-11-13. Last Documented On 05/13/2013 8:15AM By MIGUELINA JOINER DO ; [facility] metroNIDAZOLE 500 MG OR TABS 04/02/2013 - 04/03/2013 P rovider: LEON MANCERA PA-C Diagnosis: Last Documented On 04/02/2013 7:32AM By LEON MANCERA PA-C ; [facility] HYDROcodone-Acetaminophen 7. 5-325 MG OR TABS 03/10/2013 - 04/10/2013 Provider: VICKI JOINER D.O. Diagnosis: JOINT PAIN-JT NE C prn severe pain. [facility] May fill on or after 03-12-13. Last Documented On 04/10/2013 4:46PM By MIGUELINA JOINER DO ; [facility] HYDROcodone-Acetaminophen 7. 5-325 MG OR TABS 02/10/2013 - 03/10/2013 Provider: LEON MANCERA PA-C Diagnosis: JOINT PAIN-JT NE C prn severe pain. [facility] Last Documented On 03/10/2013 10:07AM By MIGUELINA JOINER DO ; [facility] Benzonatate 200 MG OR CAPS 01/24/2013 - 04/16/2013 Pro vider: LEON MANCERA PA-C Diagnosis: Last Documented On 04/16/2013 1:43PM By LEON MANCERA PA-C ; [facility] Trimethoprim 100 MG OR TABS 01/20/2013 - 10/20/2013 Provider: VICKI JOINER D.O. Diagnosis: URIN TRACT INFEC TION NOS Last Documented On 10/20/2013 10:33AM By KARINA HAYES ; [facility] Cheratussin AC 100-10 MG/5ML OR SYRP 01/16/2013 - 01/26/2013 Provider: LEON J MANCERA PA-C Diagnosis: BRONCHITIS NOS take 1 - 2 tsp AT BEDTIME FO R COUGH- DO NOT USE WITH HYDROCODONE [facility] Last Documented On 01/16/2013 8:45AM By LEON MANCERA PA-C ; [facility] Zithromax Z-Dante 250 MG OR TABS 01/16/2013 - 01/21/2013 Provider: ELON MANCERA PA-C Diagnosis: BRONCHITIS NOS Last Documented On 01/16/2013 8:46AM By LEON MANCERA PA-C ; [facility] Sulfamethoxazole-TMP DS 800-160 MG OR TABS 01/10/2013 - 01/16/2013 Provider: VICKI JOINER D.O. Diagnosis: URIN TRACT INFECTION NOS until gone. Last Documented On 01/16/2013 8:08AM By KARINA HAYES ; [facility] HYDROcodone-Acetaminophen 7. 5-325 MG OR TABS 01/08/2013 - 02/10/2013 Provider: VICKI JOINER D.O. Diagnosis: JOINT PAIN-JT NE C prn severe pain. [facility] Last Documented On 3 11:14AM By LEON MANCERA PA-C ; [facility] levoFLOXacin 250 MG OR TABS 12/27/2012 - 01/16/2013 Provider: VICKI JOINER D.O. Diagnosis: URINARY FREQUENC Y until gone. Last Documented On 01/16/2013 8:08AM By KARINA HAYES ; [facility] HYDROcodone-Acetaminophen 7. 5-325 MG OR TABS 12/07/2012 - 01/08/2013 Provider: VICKI JOINER D.O. Diagnosis: JOINT PAIN-JT NE C prn severe pain. [facility] Last Documented On 01/08/2013 2:16PM By MIGUELINA JOINER DO ; [facility] Meloxicam 15 MG OR TABS 12/05/2012 - 11/30/2013 Provider: VICKI JOINER D.O. Diagnosis: Joint Pain-Lower /Leg Last Documented On 12/05/2012 8:30AM By ASHLEY RODRÍGUEZ LPN ; [facility] Ambien 10 MG OR TABS 12/05/2012 - 02/06/2014 Provider: VICKI JOINER D.O. Diagnosis: PERSISTENT INSOM JUWAN prnBURRUS Last Documented On 02/06/2014 7:40AM By MIGUELINA JOINER DO ; [facility] HYDROcodone-Acetaminophen 7. 5-325 MG OR TABS 11/11/2012 - 12/07/2012 Provider: LEON MANCERA PA-C Diagnosis: JOINT PAIN-JT NE C prn severe pain. [facility] Last Documented On 12/07/2012 9:00AM By MIGUELINA JOINER DO ; [facility] Ciprofloxacin HCl 250 MG OR TABS 10/11/2012 - 10/14/2012 Provider: GHULAM US Diagnosis: Last Documented On 3 1:49PM By GHULAM US ; [facility] HYDROcodone-Acetaminophen 7. 5-325 MG OR TABS 10/11/2012 - 11/11/2012 Provider: GHULAM US Diagnosis: JOINT PAIN-JT NE C prn severe pain. [facility] Last Documented On 3 12:06PM By LEON MANCERA PA-C ; [facility] clonazePAM 0.5 MG OR TABS 09/17/2012 - 08/19/2014 Provider: VICKI JOINER D.O. Diagnosis: ANXIETY STATE NO S prn anxiety. NMT 2/24 hours [facility] Last Documented On 08/19/2014 8:21AM By KARINA HAYES ; [facility] Ciprofloxacin HCl 250 MG OR TABS 09/12/2012 - 10/11/2012 Provider: LEON MANCERA PA-C Diagnosis: Last Documented On 3 1:49PM By GHULAM US ; [facility] HYDROcodone-Acetaminophen 7. 5-325 MG OR TABS 09/11/2012 - 10/11/2012 Provider: VICKI JOINER D.O. Diagnosis: JOINT PAIN-JT NE C prn severe pain. [facility] Last Documented On 3 1:01PM By GHULAM US ; [facility] HYDROcodone-Acetaminophen 7. 5-325 MG OR TABS 08/08/2012 - 09/11/2012 Provider: VICKI JOINER D.O. Diagnosis: JOINT PAIN-JT NE C prn severe pain. [facility] Last Documented On 09/11/2012 8:04AM By MIGUELINA JOINER DO ; [facility] Gentamicin Sulfate 0.3% OP SOLN 07/31/2012 - 10/16/2012 Provider: LEON MANCERA PA-C Diagnosis: 2 GTTS BOTH EYES Q 4H WHILE AWAKE X 7 DAYS Last Documented On 10/16/2012 3:59PM By CARLOS DOMINIQUE LPN ; [facility] Naprosyn 500 MG OR TABS 07/26/2012 - 09/03/2012 Provider: LEON MANCERA PA-C Diagnosis: SPRAIN OF KNEE & LEG NOS Last Documented On 09/03/2012 2:33PM By BECKY POLK LPN ; [facility] Zithromax Z-Dante 250 MG OR TABS 07/19/2012 - 01/16/2013 Provider: GHULAM GEORGE DATA TYPIST-C Diagnosis: Last Documented On 01/16/2013 8:45AM By LEON MANCERA PA-C ; [facility] HYDROcodone-Acetaminophen 7. 5-325 MG OR TABS 07/04/2012 - 08/08/2012 Provider: VICKI JOINER D.O. Diagnosis: JOINT PAIN-JT NE C prn severe pain. [facility] Last Documented On 08/08/2012 10:34AM By MIGUELINA JOINER DO ; [facility] Metaxalone 800 MG OR TABS 06/03/2012 - 10/16/2012 Prov ider: LEON MANCERA PA-C Diagnosis: Cervicalgia Last Documented On 10/16/2012 3:59PM By CARLOS DOMINIQUE LPN ; [facility] HYDROcodone-Acetaminophen 7. 5-325 MG OR TABS 06/03/2012 - 07/04/2012 Provider: VICKI JOINER D.O. Diagnosis: JOINT PAIN-JT NE C prn severe pain. [facility] Last Documented On 07/04/2012 10:45AM By MIGUELINA JOINER DO ; [facility] Levaquin 250 MG OR TABS 05/29/2012 - 06/01/2012 Provid er: VICKI JOINER D.O. Diagnosis: Last Documented On 05/29/2012 11:05AM By ASHLEY RODRÍGUEZ LPN ; [facility] Sudafed 30 MG OR TABS 05/24/2012 - 06/26/2012 Provider : LEON MANCERA PA-C Diagnosis: Last Documented On 2 10:03AM By SALLY VELÁSQUEZ MA ; [facility] valACYclovir HCl 1 GM OR TABS 05/15/2012 - 06/26/2012 Provider: LEON MANCERA PA-C Diagnosis: Last Documented On 2 10:03AM By SALLY VELÁSQUEZ MA ; [facility] HYDROcodone-Acetaminophen 7. 5-325 MG OR TABS 04/30/2012 - 06/03/2012 Provider: VICKI JOINER D.O. Diagnosis: JOINT PAIN-JT NE C prn severe pain. [facility] Last Documented On 06/03/2012 5:18PM By MIGUELINA JOINER DO ; [facility] HYDROcodone-Acetaminophen 7. 5-325 MG OR TABS 03/26/2012 - 04/30/2012 Provider: VICKI JOINER D.O. Diagnosis: JOINT PAIN-JT NE C prn severe pain. [facility] Last Documented On 04/30/2012 12:57PM By MIGUELINA JOINER DO ; [facility] Zoloft 100 MG OR TABS 02/27/2012 - 06/02/2013 Provider : VICKI JOINER D.O. Diagnosis: DYSTHYMIC DISORD ER Two tablets daily. Last Documented On 06/02/2013 4:55PM By MIGUELINA JOINER DO ; [facility] HYDROcodone-Acetaminophen 7. 5-325 MG OR TABS 02/21/2012 - 03/26/2012 Provider: VICKI JOINER D.O. Diagnosis: JOINT PAIN-JT NE C prn severe pain. [facility] Last Documented On 03/26/2012 9:39AM By MIGUELINA JOINER DO ; [facility] Venlafaxine HCl 75 MG OR TABS 02/20/2012 - 03/06/2012 Provider: VICKI JOINER D.O. Diagnosis: DYSTHYMIC DISORD ER (this is to replace her Zoloft Rx). Last Documented On 03/06/2012 2:02PM By CARLOS DOMINIQUE LPN ; [facility] Zoloft 100 MG OR TABS 12/07/2011 - 02/27/2012 Provider : Diagnosis: Last Documented On 02/27/2012 8:21AM By MIGUELINA JOINER DO ; [facility] raNITIdine HCl 150 MG OR TABS 12/07/2011 - 02/20/2012 Provider: Diagnosis: Last Documented On 02/20/2012 3:55PM By CARLOS DOMINIQUE LPN ; [facility] Ambien 10 MG OR TABS 12/07/2011 - 12/05/2012 Provider: Diagnosis: prn Last Documented On 12/05/2012 12:54PM By ASHLEY RODRÍGUEZ LPN ; [facility] Cyanocobalamin 1000 MCG/ML IJ SOLN 12/07/2011 - 2011 Provider: Diagnosis: q 3 weeks Last Documented On 06/03/2012 9:19AM By LEON MANCERA PA-C ; [facility] HYDROcodone-Acetaminophen 7.5-325 MG OR TABS 2 - 03/06/2012 Provider: Diagnosis: prn Last Documented On 03/06/2012 2:02PM By CARLOS DOMINIQUE LPN ; [facility] Valtrex 1 GM OR TABS 09/13/2011 - 09/13/2011 Provider: Diagnosis: Last Documented On 05/15/2012 7:54AM By SALLY VELÁSQUEZ MA ; [facility] Medications Administered Includes: Administered Medications in patient's chart Medications Administered Diagnosis Date Pro vider B-12 1000 MCG SL SUBL 06/21/2013 KAY JOINER D.O. Last Documented On 3 10:03AM By RICK HAYES ; [facility] Cyanocobalamin 1000 MCG/ML IJ SOLN 2012 VICKI DavisOYue injected into left delt. BG Last Documented On 3 4:06PM By SALLY VELÁSQUEZ MA ; [facility] Cyanocobalamin 1000 MCG/ML IJ SOLN 2011 VICKI DavisOYue INJECTED INTO RIGHT DELT KSC Last Documented On 2 9:53AM By SALLY VELÁSQUEZ MA ; [facility] Cyanocobalamin 1000 MCG/ML IJ SOLN 2012 VICKI Reid.OYue GIVEN IN LEFT DELTOID PER MB/MA Last Documented On 3 1:50PM By KARINA HAYES ; [facility] Cyanocobalamin 1000 MCG/ML IJ SOLN 2011 VICKI Reid.O. INJECTED 1 ML INTO LEFT DELT MB Last Documented On 2 1:55PM By SALLY VELÁSQUEZ MA ; [facility] Cyanocobalamin 1000 MCG/ML IJ SOLN 2012 VICKI Reid.O. INJECTED IN R DELT. KSC Last Documented On 3 1:09PM By SALLY VELÁSQUEZ MA ; [facility] Cyanocobalamin 1000 MCG/ML IJ SOLN 2011 VICKI Reid.O. Last Documented On 2 1:11PM By ASHLEY RODRÍGUEZ LPN ; [facility] Cyanocobalamin 1000 MCG/ML IJ SOLN 2012 VICKI Reid.OYue GIVEN IN RIGHT DELTOID MB/MA Last Documented On 3 1:49PM By KARINA HAYES ; [facility] Cyanocobalamin 1000 MCG/ML IJ SOLN 2011 VICKI Reid.O. INJECTED 1 ML RIGHT DELT PER ELPIDIO Last Documented On 2 8:21AM By SALLY VELÁSQUEZ MA ; [facility] Cyanocobalamin 1000 MCG/ML IJ SOLN 2012 LEON ZUNIGA-C INJECTED IN LEFT DELT ELPIDIO Last Documented On 3 12:58PM By SALLY VELÁSQUEZ MA ; [facility] Cyanocobalamin 1000 MCG/ML IJ SOLN 2011 VICKI Reid.O. GIVEN RUOQ PER DKS Last Documented On 2 4:01PM By CARLOS DOMINIQUE LPN ; [facility] Cyanocobalamin 1000 MCG/ML IJ SOLN 2012 LEON MANCERA PA-C B12 GIVEN R DELTOID PER DKS Last Documented On 3 4:21PM By CARLOS DOMINIQUE LPN ; [facility] Cyanocobalamin 1000 MCG/ML IJ SOLN 2012 VICKI JOINER D.O. INJECTED IN RIGHT GLUT. [place] Last Documented On 3 9:36AM By SALLY VELÁSQEUZ MA ; [facility] Cyanocobalamin 1000 MCG/ML IJ SOLN 2014 LEON J MANCERA PA-C GIVEN IN RIGHT DELTOID PER PAULA/REE Last Documented On 6 11:35AM By ASHLEY RODRÍGUEZ LPN ; [facility] DEPO-Medrol 80 MG/ML IJ SUSP 07/26/2012 LEON J MANCERA PA-C GIVEN IN THE LEFT GLUT PER K LC/SILVERER. 20 MIN RECHECK WITH NO REACTION. Last Documented On 3 1:56PM By ASHLEY RODRÍGUEZ LPN ; [facility] Ketorolac Tromethamine 60 MG/2ML IJ SOLN 07/26/2012 LEON J MACNERA PA-C GIVEN IN THE RIGHT GLUT PER K[facility]/SILVERER. 20 MIN RECHECK WITH NO REACTION Last Documented On 3 1:54PM By ASHLEY RODRÍGUEZ LPN ; [facility] Results Includes: Results from 10/09/2023 through 10/08/2024 No Results Recorded For Specified Dates History of Present Illness History of Present Illness not supported for this document type No History of Present Illness Recorded Social History Description Last Updated Current smoker 11/14/2016 Last Documented On 7 10:05AM ; [facility] Social history unchanged 11/14/2016 Last Documented On 7 10:05AM ; [facility] A social drinker 02/14/2016 Last Documented On 6 11:32AM ; [facility] Alcohol use 08/19/2014 Last Documented On 5 9:03AM ; [facility] Good exercise habits 08/19/2014 Last Documented On 5 9:03AM ; [facility] No caffeine use 08/19/2014 Last Documented On 5 9:03AM ; [facility] Not using drugs 08/19/2014 Last Documented On 5 9:03AM ; [facility] Sexually active 08/19/2014 Last Documented On 5 9:03AM ; [facility] Tobacco use 08/19/2014 Last Documented On 5 9:03AM ; [facility] Current smoker 09/03/2012 Last Documented On 3 3:05PM ; [facility] Smoking status : Current everyday smoker 12/07/2011 Last Documented On 2 10:51PM ; [facility] Medical History Includes: Medical History in patient's chart Description Last Updated Taking OTC allergy medication 05/18/2017 Last Documented On 7 10:02AM ; [facility] Taking OTC cold medication 05/18/2017 Last Documented On 7 10:02AM ; [facility] Taking OTC medications for cough 017 Last Documented On 7 10:02AM ; [facility] Taking OTC pain medication /fever. Using Tylenol 05/18/2017 Last Documented On 7 10:02AM ; [facility] Medication history Received controlled s ubstance from another provider 02/14/2016 Last Documented On 6 11:32AM ; [facility] No previous hospitalization for a drug o verdose 02/14/2016 Last Documented On 6 11:32AM ; [facility] No recent change in medical history 01/21 Last Documented On 6 11:32AM ; [facility] 2 08/19/2014 Last Documented On 5 9:03AM ; [facility] Last pap smear date 201108/19/2014 Last Documented On 5 9:03AM ; [facility] Para 1 08/19/2014 Last Documented On 5 9:03AM ; [facility] LMP: 2009 - Mirena 06/17/2013 Last Documented On 3 9:59PM ; [facility] Family History Includes: Family History in patient's chart Description Last Updated Family history unchanged 02/14/2016 Last Documented On 6 11:32AM ; [facility] Maternal history of heart disease 2015 Last Documented On 6 12:16PM ; [facility] Paternal history of acute myocardial inf arction 11/03/2015 Last Documented On 6 12:16PM ; [facility] Family history reviewed - unchanged sinc e last visit 06/25/2015 Last Documented On 5 12:12PM ; [facility] Review of Systems Review of Systems not supported for this document type No Review of Systems Recorded Mental Status No Mental Status Recorded Functional Status No Functional Status Recorded Physical Exam Physical Exam not supported for this document type No Physical Exam Recorded Immunizations Includes: Immunizations in patient's chart Vaccine Dose # Date Site Reaction(s) Status Source Influenza (Quadrivalent)36 mo.& older PF 0.5ml (SD) 1 08/06/2012 Right Arm Complete (Administered) [facility] Last Documented On 3 8:01AM ; [facility] Influenza (Quadrivalent)36 mo.& older PF 0.5ml (SD) 2 05/30/2013 Left Arm Complete (Administered) [facility] Last Documented On 06/11/2013 8:24AM ; [facility] Note: VIS 02-14-13 Influenza (Quadrivalent)36 mo.& older PF 0.5ml (SD) 3 05/16/2016 Left Arm Complete (Administered) [facility] Last Documented On 6 8:40AM ; [facility] Allergies Includes: Active, inactive, and resolved Allergies Substance Type Reaction Onset Date Resolved Date Statu s Penicillin V Potassium Allergy Skin Rash es / Eruption of skin, Hives / Urticaria, Nausea, Vomiting, Diarrhea / Diarrheal disorder 05/02/2012 Active Last Documented On 7 9:19AM ; [facility] Clinical Notes Includes: Signed Clinical Notes starting from 08/11/2022 No Clinical Notes Recorded
--- OUTSIDE RECORDS SUMMARY | 2024-10-08 08:12 | XMS_ITS | Referral Summary ---
Author Organization [facility] Address [address] [facility] [place] [address] Care Team Providers Care Roof Truss Builder Name Role Phone Meiramy Umang Murrietat Primary Care Provider Allergies Active Allergy Reactions Criticality Noted Date Comments Penicillins Other (See comments),Hives Reaction: Unknown, , Reaction: hives, , Rizatriptan Other (See comments) High Reaction: rapidheart beat, Medications fexofenadine (KOURTNEY) 180 mg tablet take 1 tablet (180MG) by oral route every day 30 6 07/14/20 11 Active Additional Information Patient not taking.Reported on 09/07/2022 levonorgestrel (MIRENA) 20 mcg/24 hr (5 years) IUD tud 0 07/14/20 11 Active Additional Information Patient not taking.Reported on 11/15/2022 fluticasone (FLONASE) 50 mcg/actuation nasal spray spray 2 spray by intranasal route every day in each nostril 1 11 07/27/19 12 Active Additional Information Patient not taking.Reported on 09/07/2022 ZOLMitriptan (ZOMIG ZMT) 2.5 mg disintegrating tablet take 1 tablet (2.5MG) by oral route and place on top of the tongue where it will dissolve, then swallow once; if headache returns, the dose may be repeated after 2 hours, not to exceed 10 mg within 24 hours 9 11 07/27/19 12 Active Additional Information Patient not taking.Reported on 09/07/2022 SUMAtriptan (IMITREX) 50 mg tablet take 1 tablet (50MG) by oral route once with fluids as early as possible after the onset of a migraine attack;may repeat after 2 hours if headache returns, not to exceed 200mg in 24hrs 9 11 07/27/19 12 Active Additional Information Patient not taking.Reported on 09/07/2022 zolpidem (AMBIEN) 10 mg tablet take 1 tablet (10MG) by oral route every day at bedtime 30 1 08/22/19 12 Active Additional Information Patient not taking.Reported on 09/07/2022 sertraline (ZOLOFT) 100 mg tablet take 1 tablet (100MG) by oral route every day 90 11 08/22/19 12 Active Additional Information Patient not taking.Reported on 11/15/2022 valACYclovir (VALTREX) 1 gram tablet take 2 tablets twice daily for one day 12 0 09/19/19 12 Active Additional Information Patient not taking.Reported on 09/07/2022 levoFLOXacin (LEVAQUIN) 750 mg tablet take 1 tablet (750MG) by oral route every day 7 0 09/28/19 12 Active Additional Information Patient not taking.Reported on 09/07/2022 ZOLMitriptan (ZOMIG) 5 mg nasal solution 5 mg. 0 05/23/20 11 Active Additional Information Patient not taking.Reported on 09/07/2022 sertraline (ZOLOFT) 25 mg tablet take 1 tablet (25MG) by oral route every day 0 05/23/20 11 Active Additional Information Patient not taking.Reported on 09/07/2022 HYDROcodone-acetam inophen (VICODIN) 5-300 mg per tablet take 1 tablet by oral route every 4 - 6 hours as needed for pain 0 0 04/04/20 16 Active Additional Information Patient not taking.Reported on 09/07/2022 sertraline (ZOLOFT) 100 mg tablet take 1 tablet by oral route every day 0 0 04/04/20 16 Active Additional Information Patient not taking.Reported on 09/07/2022 cyanocobalamin, vitamin B-12, (B-12 COMPLIANCE) 1,000 mcg/mL kit inject 1 milliliter by intramuscular route every month 0 kit 0 04/04/20 16 Active Additional Information Patient not taking.Reported on 09/07/2022 busPIRone (BUSPAR) 5 mg tablet 09/06/19 23 Active hydrOXYzine (ATARAX) 25 mg tablet 08/11/19 23 Active Active Problems Problem Noted Date Diagnosed Date Obesity with body mass index 30 or greater 11/1511/15/2022 Pain in joint of right shoulder 11/15/2022 11/15/2022 Pain in wrist 11/15/2022 11/15/2022 Presence of IUD 11/15/2022 11/15/2022 Smoker 11/15/2022 11/15/2022 Mixed anxiety depressive disorder 04/04/2016 Overview (10/26/2016): Depression with anxiety Endometriosis 04/04/2016 Overview (10/26/2016): Endometriosis Migraine 02/03/2014 Overview (10/26/2016): MIGRNE UNSP WO NTRC MGRN Vitamin B-complex deficiency 12/06/2013 Overview (10/27/2016): B-COMPLEX DEFIC NEC Premenstrual tension syndrome 12/06/2013 Overview (10/27/2016): PMS (premenstrual syndrome) Cobalamin deficiency 08/01/2011 Overview (10/27/2016): B12 deficiency Minimal cognitive impairment 08/01/2011 Overview (10/27/2016): Cognitive impairment, mild, so stated Atypical migraine 08/01/2011 Overview (10/27/2016): Migraine headache without aura Immunizations Immunization Administration Dates Next Due Influenza, Trivalent, IM (MDV) 04/26/2011 Social History Tobacco Use Types Packs/Day Years Used Date Smoking Tobacco: Heavy Smoker Tobacco Cessation:Ready to Q uit: Not Asked; Counseling Given: Not Answered Comments:Smoking History Packs/day: 0.5 Packs Alcohol Use Standard Drinks/Week Comments Yes 0 (1 standard drink = 0.6 oz pur e alcohol) Comments Unknown Sex and Gender Information Value Date Recorded Sex Assigned at Not on file 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 Gender Identity Not on file Sexual Orientation Not on file Last Filed Vital Signs Vital Sign Reading Time Taken Comments Blood Pressure 122/82 04/04/2016 10:28 AM CDT Pulse - - Temperature - - Respiratory Rate - - Oxygen Saturation - - Inhaled Oxygen Concentration - - Weight 70.8 kg (156 lb) 02/26/2019 7:33 PM CDT Height 167 cm (5' 5.75 ) 04/04/2016 10:28 AM CDT Body Mass Index 25.37 04/04/2016 10:28 AM CDT Plan of Treatment Not on file Insurance [employer] [place] Care Teams Roof Truss Builder Relationship Specialty Start Date End Date Umang Samuel DO [address] [place] [address] PCP - General 08/26/11"
--- OUTSIDE RECORDS SUMMARY | 2024-10-08 08:13 | XMS_ITS ---
Care Plan - [facility] Created on: October 08, 2024 SALLY VELÁSQUEZ : 1985 Sex: Female Author Organization [facility] Address [address] [place] [address] Phone Care Team Providers Care Display Coordinator Name Role Phone Unavailable Unavailable Unavailable
--- OUTSIDE RECORDS SUMMARY | 2024-10-08 08:13 | XMS_ITS | Clinical Summary ---
Author Organization [facility] Address [address] [facility] [place] [address] Care Team Providers Care Field Agronomist Name Role Phone Meiramy Umang Murrietat Primary [...] Next Due Influenza, Trivalent, IM (MDV) 04/26/2011 Surgical History Surgery Date Site/Laterality Comments TONSILLECTOMY 2005 Tonsillectomy OTHER SURGICAL HISTORY 2010 endometriosis: laproscopic TONSILLECTOMY Tonsillectomy OTHER SURGICAL HISTORY Arthritis: Left knee arthroscopy OTHER SURGICAL HISTORY Endometriosis: Diagnostic laparoscopy, fulguration of endometriosis Medical History Medical History Date Comments Anemia Anemia Hx Other Medical Headache, migra ine Tension headache Headache, tensi on Endometritis 08/2010 endometriosis Hx Other Medical 2003 intracranial bl eed; Outcome: migraines Hx Other Medical Arthritis; Comm ents: RED 04/06/2016 - Hx Other Medical Endometriosis; Comments: RED 04/06/2016 - Family History Medical History Relation Name Comments Other Brother 2 Alive and well; Other Father 2 Alive and well; Other Maternal Grandfather 2 old a ge; Cause of : old age Alzheimer's disease Maternal Grandmother Alzheimer's Disease; Coronary artery disease Maternal Grandmother Coronary artery disease; Other Mother 2 Alive and well; Coronary artery disease Paternal Grandfather Coronary artery disease; Heart attack Paternal Grandfather Myocard ial infarction; Other Paternal Grandmother 2 Alive and well; Relation Name Status Comments Brother 1 Alive Brother 2 Father 1 Alive Father 2 Maternal Grandfather 1 Maternal Grandfather 2 Maternal Grandmother Mother 1 Alive Mother 2 Paternal Grandfather Paternal Grandmother 1 Alive Paternal Grandmother 2 Social History Tobacco Use Types Packs/Day Years [...] on file 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 Gender Identity Not on file Sexual Orientation Not on file Obstetrics History Last Filed Vital Signs Vital Sign Reading [...] 04/04/2016 10:28 AM CDT Plan of Treatment Health Maintenance Due Date Last Done Comments Cervical Cancer Screening 1985 Depression Screening 1984 Hepatitis C Screening 1984 Varicella Vaccines (1 of + 2-dose series) 1997 Hepatitis B Screening 2002 Regular Well Visit/Exam 18-64 2002 Pneumococcal vaccine <65 (1 of 2 - PCV) 12/03/2003 Covid-19 Vaccine (2023- season) 2024 10/14/2020, 09/23/2020 Influenza Vaccine (#1) 2024 , 06/07/2017, 05/16/2016, Additional history exists DTaP/Tdap/Td Vaccine (2 - Td or Tdap) 03/22/2032 03/22/2022 HPV Vaccines Aged Out No longer eligi ble based on patient's age to complete this topic Insurance [employer] [place] Care Teams Field Agronomist Relationship Specialty Start Date End Date Umang Samuel DO [address] [place] [address] PCP - General 08/26/11
--- OUTSIDE RECORDS SUMMARY | 2024-10-08 08:13 | XMS_ITS | Clinical Summary ---
Author Organization [facility] Address [address] [place] [address] Phone Care Team Providers Care Environmental Sampler Name Role Phone Unavailable Unavailable Unavailable Reason for Visit and Chief Complaint The Chief Complaint is: FEVER (102) HEAD FULL, CHEST HURTS, COUGH - NON-PROD. X 1.5 WEEK. OTC MEDS NOT HELPING. HAS A MERINA - WOULD LIKE THIS REMOVED Problems Includes: Problems addressed during this encounter and other active Problems All Visits Onset Date Resolved Date Provider Condition S tatus Depression with Anxiety 12/01/2014 LEON CISNEROS PA-C Active Last Documented On 5 1:57PM ; [facility] Arthralgia - Knee / Patella / Tibia / Fibula Left 12/01/2014 LEON MANCERA PA-C Active Last Documented On 5 1:56PM ; [facility] Arthralgias Multiple Sites 12/01/2014 LEON MANCERA PA-C Active Last Documented On 5 1:56PM ; [facility] Vitamin B12 Deficiency 02/24/2013 FLORY FERNANDO CUSTOM SKI MAKER-C Active Last Documented On 7 9:33AM ; [facility] Note: Unchanged Esophagitis Chronic Reflux 02/20/2012 LEON MANCERA PA-C Active Last Documented On 3 1:02PM ; [facility] Plan of Treatment - Follow-up visit as needed with an office visit. 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 It has been 8 years. Prefers appt in [place]. Last Documented On 8 10:43AM ; [facility] Neighborhood Planner [facility] [employer] [facility] - [address] [phone] - Idiopathic aseptic necrosis of unspecified bone Last Documented On 7 8:24AM ; [facility] Assessments Includes: Assessments from this encounter Findings - Acute sinusitis [Acute pansinusitis, unspecified] - Last Documented On 06/04/2017 10:02AM ; [facility] Medical Equipment - Implanted Devices Includes: Current Devices No Medical Equipment Recorded Medications Includes: Medications discussed during this encounter and other current Medications Discontinued / Stopped on this date VICKI JOINER D.O. on 11/14/2016 Hydrocodone-Acetaminophen 7. 5-325MG Oral Tablet Provider: VICKI JOINER D.O. Diagnosis: Pain in unspecif ied joint Last Documented On 05/18/2017 9:19AM By BECKY POLK LPN ; [facility] New / Renewed during this visit FLORY US on 05/18/2017 LevoFLOXacin 500MG Oral Tablet Provider: FLORY US 10 day supply: 10 tablet, 0 refills Diagnosis: Acute pansinusitis, unspecified One tablet daily Pharmacy: [facility] - [address] [place] [address], [phone] - Last Documented On 7 9:52AM By FLORY US ; [facility] Cheratussin AC 100-10MG/5ML Oral Syrup Provider: FLORY US 30 day supply: 100 millilite r, 0 refills Diagnosis: Cough 10 ml oral every 6hrs as nee ded for cough. Pharmacy: [facility] - [address], [phone] - Last Documented On 7 9:52AM By FLORY US ; [facility] Current Medications (continue as prescribed) Sertraline HCl 100MG Oral Tablet 07/24/2018 Provider : VICKI A VOIGTS D.O. Diagnosis: Dysthymic disord er TAKE 2 TABLETS NIGHTLY DIRECTED Last Documented On 07/24/2018 4:34PM By MIGUELINA JOINER DO ; [facility] Cyanocobalamin 1000 MCG/ML IJ SOLN 08/19/2014 Provid er: LEON MANCERA PA-C Diagnosis: 1ML IM Q MONTH PLEASE DISPEN SE SYRINGES AND NEEDLES 27G X 5/8 IN Last Documented On 08/19/2014 8:21AM By KARINA HAYES ; [facility] BD Eclipse Syringe 25G X 5/8 3 ML MISC 02/10/2014 P rovider: LEON MANCERA PA-C Diagnosis: FOR B-12 Last Documented On 02/10/2014 5:04PM By LEON MANCERA PA-C ; [facility] Past Medications on file Azithromycin 250MG Oral Tablet 11/14/2016 - 12/14/2016 Provider: FLORY US Diagnosis: Streptococcal pharyngitis take 500mg oral day one, the n 250mg oral daiy days 2-4. Last Documented On 7 10:07AM By FLORY US ; [facility] Doxycycline Monohydrate 100MG Oral Tablet 10/04/2016 - 10/14/2016 Provider: JOSIANE GIBBS PA-C Diagnosis: One tablet twice a day Last Documented On 7 1:35PM By JOSIANE ADAMS PA-C ; [facility] Valtrex 500 MG Tablet 07/07/2016 - 07/10/2016 Provider: ASHLEY STEWART PA-C Diagnosis: Herpesviral infe ction of urogenital system, unspecified One tablet twice a day Last Documented On 6 12:17PM By ASHLEY STEWART PA-C ; [facility] Cyanocobalamin 1000 MCG/ML Solution 01/28/2016 - 01/30/2016 Provider: VICKI JOINER D.O. Diagnosis: DIRECTED INTRAMUSCULARLY EVERY MONTH PLEASE DISPENSE SYRINGES AND NEEDLES 27GX 5/8 IN Last Documented On 01/28/2016 11:41AM By ASHLEY RODRÍGUEZ LPN ; [facility] Tamiflu 75 MG Capsule, conventional 09/28/2015 - 10/03/2015 Provider: LEON MANCERA PA-C Diagnosis: Flu due to ident novel influenza A virus w oth resp manifest 1 CAPSULE TWO TIMES A DAY Last Documented On 09/28/2015 2:14PM By LEON MANCERA PA-C ; [facility] Zofran 4 MG Tablet 07/08/2015 - 07/11/2015 Provider: LEON MANCERA PA-C Diagnosis: 1 PO Q 8 H PRN NAUSEA Last Documented On 07/08/2015 3:33PM By LEON MANCERA PA-C ; [facility] Azithromycin 500 MG Tablet 04/27/2015 - 05/02/2015 Pro vider: LEON MANCERA PA-C Diagnosis: One tablet daily Last Documented On 5 12:12PM By LEON MANCERA PA-C ; [facility] Sulfamethoxazole-TMP DS 800- 160 MG OR TABS 08/21/2014 - 08/28/2014 Provider: LEON MANCERA PA-C Diagnosis: Last Documented On 08/21/2014 9:24AM By LEON MANCERA PA-C ; [facility] Ciprofloxacin HCl 250 MG OR TABS 08/19/2014 - 08/26/2014 Provider: LEON MANCERA PA-C Diagnosis: URIN TRACT INFEC TION NOS Last Documented On 08/19/2014 8:36AM By LEON MANCERA PA-C ; [facility] metroNIDAZOLE 500 MG OR TABS 08/19/2014 - 08/20/2014 Provider: LEON MANCERA PA-C Diagnosis: VAGINITIS NOS Last Documented On 08/19/2014 8:37AM By LEON MANCERA PA-C ; [facility] Azithromycin 500 MG OR TABS 06/30/2014 - 07/05/2014 Pr ovider: LEON MANCERA PA-C Diagnosis: Last Documented On 06/30/2014 2:42PM By LEON MANCERA PA-C ; [facility] Azithromycin 500 MG OR TABS 10/20/2013 - 10/25/2013 Provider: LEON MANCERA PA-C Diagnosis: STREP SORE THROA T Last Documented On 10/20/2013 11:21AM By [email or web address] ; [facility] Benzonatate 200 MG OR CAPS 04/16/2013 - 05/01/2013 Pro vider: LEON MANCERA PA-C Diagnosis: Last Documented On 04/16/2013 1:44PM By LEON MANCERA PA-C ; [facility] metroNIDAZOLE 500 MG OR TABS 04/02/2013 - 04/03/2013 Altagracia schwartzder: LEON MANCERA PA-C Diagnosis: Last Documented On 04/02/2013 7:32AM By LEON MANCERA PA-C ; [facility] Cheratussin AC 100-10 MG/5ML OR SYRP 01/16/2013 - 01/26/2013 Provider: LEON MANCERA PA-C Diagnosis: BRONCHITIS NOS take 1 - 2 tsp AT BEDTIME FO R COUGH- DO NOT USE WITH HYDROCODONE INDIO Last Documented On 01/16/2013 8:45AM By LEON MANCERA PA-C ; [facility] Zithromax Z-Dante 250 MG OR TABS 01/16/2013 - 01/21/2013 Provider: LEON MANCERA PA-C Diagnosis: BRONCHITIS NOS Last Documented On 01/16/2013 8:46AM By LEON MANCERA PA-C ; [facility] Meloxicam 15 MG OR TABS 12/05/2012 - 11/30/2013 Provider: VICKI JOINER D.O. Diagnosis: Joint Pain-Lower /Leg Last Documented On 12/05/2012 8:30AM By ASHLEY RODRÍGUEZ LPN ; [facility] Ciprofloxacin HCl 250 MG OR TABS 10/11/2012 - 10/14/2012 Provider: GHULAM US Diagnosis: Last Documented On 3 1:49PM By GHULAM US ; [facility] Levaquin 250 MG OR TABS 05/29/2012 - 06/01/2012 Provid er: VICKI JOINER D.O. Diagnosis: Last Documented On 05/29/2012 11:05AM By ASHLEY RODRÍGUEZ LPN ; [facility] Valtrex 1 GM OR TABS 09/13/2011 - 09/13/2011 Provider: Diagnosis: Last Documented On 05/15/2012 7:54AM By SALLY VELÁSQUEZ MA ; [facility] Medications Administered Includes: Administered Medications from this encounter No Administered Medications Recorded Vital Signs Includes: Vital Signs from this encounter Vital Name 05/18/2017 09:17A Blood Pressure Sitting L 114/80 BP Cuff Size Regular Pulse Rate-Sitting (bpm) 80 Pulse Rhythm Regular Respiration Rate (breaths/min) 20 Temp-Oral (F) 98.6 Height (in) 66.5 Weight (lb) 168 Body Mass Index (kg/m2) 26.7 Body Surface Area (m2) 1.9 Last Documented: On 05/18/2017 9:23AM ; [facility] Results Includes: Results discussed during this encounter No Results Recorded For Specified Dates History of Present Illness Includes: History of Present Illness from this encounter JOSEFA VELÁSQUEZ is a 31 year old female. Source of patient information was patient ? Medication list reviewed with patient - Not feeling fine - Feeling tired (fatigue) - Fever - No illness since last visit - Symptoms not controlled on current medication - Not feeling poorly (malaise) - No lethargy - No chills - No recent weight loss - No headache - No sinus pain - No neck pain - No neck stiffness - No swollen glands in the neck - No eye symptoms - Postnasal drip - Nasal passage blockage (stuffiness) - No ear symptoms - No nasal discharge - No sneezing - No nasal itching - No hoarseness - No sore throat - No mouth sores - No lip sores - No bad breath - No chest pain or discomfort - No palpitations - The heart rate was not slow - The heart rate was not fast - Cough intermittent - Worse at night - Not feeling congested in the chest - No dyspnea - No rapid breathing - Not coughing up sputum - No wheezing - Normal appetite - Appetite not decreased - No nausea - No dry heaves - No vomiting - No abdominal pain - No loose/mushy stools - No foul-smelling stool - No diarrhea - No constipation - No hematuria - No cloudy urine - No foul-smelling urine - No oliguria - No increase in urinary frequency - No urinary urgency - No urinary loss of control - No dysuria - No pain in the flank - Normal frequency of periods - No dysmenorrhea - No menstrual-type cramping - No myalgias - No arthralgias - No muscle cramps - No muscle spasms - No localized joint pain - No localized joint swelling - No dizziness - No vertigo - No lightheadedness - No fainting - No convulsions - No psychological symptoms - No skin symptoms Social History Description Last Updated Current smoker 11/14/2016 Last Documented On 7 9:16AM ; [facility] Social history unchanged 11/14/2016 Last Documented On 7 9:16AM ; [facility] A social drinker 02/14/2016 Last Documented On 7 9:16AM ; [facility] Alcohol use 08/19/2014 Last Documented On 7 9:16AM ; [facility] Good exercise habits 08/19/2014 Last Documented On 7 9:16AM ; [facility] No caffeine use 08/19/2014 Last Documented On 7 9:16AM ; [facility] Not using drugs 08/19/2014 Last Documented On 7 9:16AM ; [facility] Sexually active 08/19/2014 Last Documented On 7 9:16AM ; [facility] Tobacco use 08/19/2014 Last Documented On 7 9:16AM ; [facility] Current smoker 09/03/2012 Last Documented On 7 9:16AM ; [facility] Smoking status : Current everyday smoker 12/07/2011 Last Documented On 7 9:16AM ; [facility] Procedures and Surgical History Includes: Procedures from this encounter Procedures Code Diagnosis Performing Provider Service L ocation Service Date Pt to use OTC fever/pain product as needed per product instruction.~ Last Documented On 7 9:40AM ; [facility] Continue mucinex as previous Last Documented On 7 9:40AM ; [facility] Medical History Includes: Medical History addressed during this encounter Description Last Updated Taking OTC allergy medication 05/18/2017 Last Documented On 7 10:02AM ; [facility] Taking OTC cold medication 05/18/2017 Last Documented On 7 10:02AM ; [facility] Taking OTC medications 05/18/2017 Last Documented On 7 10:02AM ; [facility] Taking OTC medications for cough 017 Last Documented On 7 10:02AM ; [facility] Taking OTC pain medication / fever. Usin g Motrin 05/18/2017 Last Documented On 7 10:02AM ; [facility] Taking OTC pain medication /fever. Using Tylenol 05/18/2017 Last Documented On 7 10:02AM ; [facility] Medication history Received controlled s ubstance from another provider 02/14/2016 Last Documented On 7 9:16AM ; [facility] No previous hospitalization for a drug o verdose 02/14/2016 Last Documented On 7 9:16AM ; [facility] No recent change in medical history 01/21 Last Documented On 7 9:16AM ; [facility] 2 08/19/2014 Last Documented On 7 9:16AM ; [facility] Last pap smear date 201108/19/2014 Last Documented On 7 9:16AM ; [facility] Para 1 08/19/2014 Last Documented On 7 9:16AM ; [facility] LMP: 2009 - Mirena 06/17/2013 Last Documented On 7 9:16AM ; [facility] Family History Includes: Family History addressed during this encounter Description Last Updated Family history unchanged 02/14/2016 Last Documented On 7 9:16AM ; [facility] Maternal history of heart disease 2015 Last Documented On 7 9:16AM ; [facility] Paternal history of acute myocardial inf arction 11/03/2015 Last Documented On 7 9:16AM ; [facility] Family history reviewed - unchanged sinc e last visit 06/25/2015 Last Documented On 7 9:16AM ; [facility] Review of Systems Includes: Review of Systems from this encounter Systemic: Feeling poorly (malaise) and fever high (over 102 F by thermometer). No chills. Head: Headache, facial pain, and sinus pain. Neck: No neck symptoms. Eyes: No eye symptoms. Otolaryngeal: Earache FEELS FULL and in both ears. No discharge from the ears and no tinnitus. Nasal discharge CLEAR and postnasal drip. No sore throat. Breasts: No breast symptoms. Cardiovascular: No cardiovascular symptoms. Pulmonary: Feeling congested in the chest. No dyspnea. Cough. Not coughing up sputum. Wheezing. Gastrointestinal: Normal appetite. No nausea, no vomiting, no diarrhea, and no constipation. Genitourinary: No genitourinary symptoms and no dysuria. Date of last menstruation HAS A MERIANA - WOULD LIKE THIS REMOVED. Endocrine: No endocrine symptoms. Hematologic: No hematologic symptoms. Musculoskeletal: No musculoskeletal symptoms. Neurological: No dizziness. Psychological: No psychological symptoms. Skin: No skin symptoms. Mental Status Includes: Mental Status from this encounter No Mental Status Recorded Functional Status Includes: Functional Status from this encounter No Functional Status Recorded Physical Exam Includes: Physical Exam from this encounter Allergies Includes: Active Allergies Substance Type Reaction Onset Date Resolved Date Statu s Penicillin V Potassium Allergy Skin Rash es / Eruption of skin, Hives / Urticaria, Nausea, Vomiting, Diarrhea / Diarrheal disorder 05/02/2012 Active Last Documented On 7 9:19AM ; [facility] Encounters Encounter Provider Location Date Check-In Time Check-Out Time Diagnosis SICK VISIT FLORY DEJESUS-Jul[facility] 7 9:11AM 9:50AM Sinusitis Acute Clinical Notes Includes: Clinical Notes from this encounter No Clinical Notes Recorded
--- OUTSIDE RECORDS SUMMARY | 2024-10-08 08:13 | XMS_ITS | Clinical Summary ---
Author Organization [facility] Address [address] [place] [address] Phone Care Team Providers Care Duplicating Machine Mechanic Name Role Phone Unavailable Unavailable Unavailable Reason for Visit and Chief Complaint REFERRAL Problems Includes: Problems addressed during this encounter and other active Problems All Visits Onset Date Resolved Date Provider Condition S tatus Depression with Anxiety 12/01/2014 LEON CISNEROS PA-C Active Last Documented On 5 1:57PM ; [facility] Arthralgia - Knee / Patella / Tibia / Fibula Left 12/01/2014 LEON MANCERA PA-C Active Last Documented On 5 1:56PM ; [facility] Arthralgias Multiple Sites 12/01/2014 LEON MANCERA PA-C Active Last Documented On 5 1:56PM ; [facility] Vitamin B12 Deficiency 02/24/2013 FLORY FERNANDO VISUAL EFFECTS EDITOR-C Active Last Documented On 7 9:33AM ; [facility] Note: Unchanged Esophagitis Chronic Reflux 02/20/2012 LEON MANCERA PA-C Active Last Documented On 3 1:02PM ; [facility] Plan of Treatment Referrals To Diagnosis Oncology/Hematology SERGEY RING MD - [facility] - [address] [place] [id number] - Idiopathic aseptic necrosis of unspecified bone Last Documented On 7 1:11PM ; [facility] Assessments Includes: Assessments from this encounter No [...] 07/24/2018 4:34PM By MIGUELINA JOINER DO ; [facility] Cyanocobalamin 1000 MCG/ML IJ SOLN 08/19/2014 Provid er: LEON MANCERA PA-C Diagnosis: 1ML IM Q MONTH PLEASE DISPEN SE SYRINGES AND NEEDLES 27G X 5/8 IN Last Documented On 08/19/2014 8:21AM By KARINA HAYES ; [facility] BD Eclipse Syringe 25G X 5/8 3 ML MISC 02/10/2014 P rovider: LEON MANCERA PA-C Diagnosis: FOR B-12 Last Documented On 02/10/2014 5:04PM By LEON MANCERA PA-C ; [facility] Medications Administered Includes: Administered Medications from this encounter No Administered Medications Recorded Results Includes: Results discussed during this encounter No Results Recorded For Specified Dates History of Present Illness Includes: History of Present Illness from this encounter No History of Present Illness Recorded Social History No Social History Recorded - Smoking Status Unknown Medical History Includes: Medical History addressed during this encounter No Medical History Recorded Family History Includes: Family History addressed during this encounter No Family History Recorded Review of Systems Includes: Review of Systems [...] Active Last Documented On 7 9:19AM ; [facility] Encounters Encounter Provider Location Date Check-In Time Check-Out Time Diagnosis REFERRAL FLORY US 06/07/2017 4:35PM 11:59PM Clinical Notes Includes: Clinical Notes from this encounter No Clinical Notes Recorded
--- OUTSIDE RECORDS SUMMARY | 2024-10-08 08:13 | XMS_ITS | Continuity of Care Document ---
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 there is no injury. The pain is aggravated by bending and movement. There are no relieving factors. Associated symptoms include bruising, decreased mobility, joint instability, joint tenderness and swelling. Pertinent negatives include crepitus, difficulty initiating sleep, limping, nocturnal awakening, nocturnal pain, numbness, popping, spasms, tingling in the arms, tingling in the legs and weakness. Functional Status Date Functional Assessmen t No Information Instructions Date Instruction Additional Infor colette Continue taking pres cribed medication as directed. Eat a healthy diet and get at least 8 hours of sleep per night. Use coping strategies such as exercise, talking with friends or family, spending time outdoors, listening to music, and other enjoyable activities to help manage your symptoms. Avoid any caffeine containing products. If you have suicidal thoughts and you feel that you may act on them, please call 911 or go to the nearest ER. Observe for worsening signs and symptoms and seek care as needed. Related to Dysthymic disorder Continue to monitor for worsening signs and symptoms and seek care as needed. Have MRI completed when ordered. Related to Pain in right shoulder Monitor for complica tions as discussed. Seek care as needed. Related to Pain in right shoulder Take hydroxyzine as needed. Take it at home first to see how it affects you, it may make you drowsy. Follow up if this medication does not help with anxiety attacks. Go to your SURFACE GRINDING MACHINE HAND appt for pap and IUD removal/ insertion. Have labs completed. Related to Dysthymic disorder Observe for worsenin g signs and symptoms Related to Cyst of skin Encouraged counseling Related to Depression Encouraged coping activities Rel ated to Depression If you develop suici andressa thoughts or feelings go to the ER Related to Depression Goal of treatment discussed Rela tino to Depression Observe for medication side effe ct Related to Depression Ice with elevation as discussed Related to Avulsion fracture Keep brace on at all times unless showering Related to Avulsion fracture Tylenol/Motrin as ne eded per package directions Related to Avulsion fracture For worsening/severe symptoms go to ER. Related to Odynophagia No smoking or alcohol. No NSAIDs Related to Odynophagia Omeprazole 20mg daily Related to Odynophagia Soft foods. Small bi jama. Chew foods thoroughly. Related to Odynophagia Cascilla GERD diet as discussed Rel ated to Odynophagia Observe for worsening s/s Relate d to Pain in left knee Take NSAIDS as direc tino, observe for side effect Related to Pain in left knee Rest, elevation, cold pack Relat ed to Pain in left knee Cover cough, Wash potts nds frequently, Do not share drinks Related to Acute upper respiratory infection, unspecified Medications as discussed Related to Acute upper respiratory infection, unspecified Tylenol/ Motrin as n eeded for fever/discomfort Related to Acute upper respiratory infection, unspecified Observe for persiste nt or worsening symptoms Related to Acute upper respiratory infection, unspecified Increase fluids Related to Acute upper respiratory infection, unspecified OTC cough/ cold medi cations as discussed Related to Acute upper respiratory infection, unspecified Medication managemen t discussed (benefit, risk, side effects) Related to Pain of left shoulder region Do not share, sell, loan or otherwise distribute your medication to others Related to Pain of left shoulder region Medications as instructed Relate d to Pain of left shoulder region Medication managemen t discussed (benefit, risk, side effects) Related to Pain in right shoulder Do not share, sell, loan or otherwise distribute your medication to others Related to Pain in right shoulder Use medication as instructed Rel ated to Rash Observe for worsenin g signs or symptoms Related to Rash Observe for medication side effe ct Related to Rash Change shoes and socks frequentl y Related to Rash Medications as instructed Relate d to Pain in right shoulder Medication managemen t discussed (benefit, risk, side effects) Related to Pain in right shoulder Rest, elevation, cold pack Relat ed to Pain of left shoulder region Observe for worsening s/s Relate d to Pain of left shoulder region Take medication as d irected, observe for side effect Related to Pain of left shoulder region Medications as instructed Relate d to Pain in right shoulder Do not share, sell, loan or otherwise distribute your medication to others Related to Pain in right shoulder If x-ray is negative consider MR I Related to Pain of left scapula Do not share or sell your medica tions Related to Pain of left scapula Pain contract completed today. R elated to Pain of left scapula Medications as discussed Related to Pain of left scapula Observe for worsening s/s Relate d to Pain in right wrist Taswell as prescribed Related to P ain in right wrist F/u with surgeon as scheduled Re lated to Pain in right wrist Rest, elevation, Related to Pain in right wrist Follow up as scheduled with orth opedic Related to Pain in right hand Follow up with primary Related t o Pain in right hand Assessments Type Assessment Date No Information Patient Care Teams Name Effective Dates (start - stop) Status Members No Information
--- OUTSIDE RECORDS SUMMARY | 2024-10-08 08:13 | XMS_ITS | Clinical Summary ---
Author Organization [facility] Address [address] [place] [address] Phone Care Team Providers Care Senior Environmental Technician Name Role Phone Ce Sanchez APRN, BUSINESS ACCOUNT SPECIALIST Primary Care Prov ider Allergies Active Allergy Reactions Criticality Noted Date Comments Penicillins Hives 08/23/2020 Medications sertraline (Zoloft) 100 MG Tablet Take 200 mg by mouth daily. Active Social History Tobacco Use Types Packs/Day Years Used Date Smoking Tobacco: Every Day Cigarettes Smokeless Tobacco: Never Alcohol Use Standard Drinks/Week Comments Yes 0 (1 standard drink = 0.6 oz pur e alcohol) Comments No Sex and Gender Information Value Date Recorded Sex Assigned at Not on file Legal Sex Female 11:03 AM REGISTERED CLINICAL DIETITIAN Gender Identity Not on file Sexual Orientation Not on file Last Filed Vital Signs Vital Sign Reading Time Taken Comments Blood Pressure 158/79 08/23/2020 12:21 PM REGISTERED CLINICAL DIETITIAN Pulse 83 08/23/2020 11:10 AM REGISTERED CLINICAL DIETITIAN Temperature 36.9 C (98.5 F) 08/23/2020 11:10 AM REGISTERED CLINICAL DIETITIAN Respiratory Rate 18 08/23/2020 11:10 AM REGISTERED CLINICAL DIETITIAN Oxygen Saturation 99% 08/23/2020 11:10 AM REGISTERED CLINICAL DIETITIAN Inhaled Oxygen Concentration - - Weight 83.9 kg (185 lb) 08/23/2020 11:10 AM REGISTERED CLINICAL DIETITIAN Height 170.2 cm (5' 7 ) 08/23/2020 11:10 AM REGISTERED CLINICAL DIETITIAN Body Mass Index 28.98 08/23/2020 11:10 AM REGISTERED CLINICAL DIETITIAN Plan of Treatment Health Maintenance Due Date Last Done Comments Hepatitis C Virus (HCV) Screening 1984 TdaP Immunization 1984 Hepatitis B Immunization (1 of 3 - 19+ 3-dose series) 12/03/2003 Pap Smear 2005 Cervical Cancer Screening (CCS) 2014 HPV/Cotest 2014 Influenza Immunization (#1) 03/23/202405/23, 05/16/2016, 04/22/2016 SARS-COV-2 Immunization ( - 2023- season) 2024 10/14/2020, 09/23/2020 Respiratory Syncytial Virus (RSV) Immunization (Adult) (1 - 1-dose 75+ series) 12/03/2059 Meningococcal Immunization (ACWY) Aged Out No longer eligible b ased on patient's age to complete this topic Pneumococcal Immunization Combined Aged Out No longer eligible b ased on patient's age to complete this topic Rotavirus Immunization Aged Out No lo nger eligible based on patient's age to complete this topic Care Teams Senior Environmental Technician Relationship Specialty Start Date End Date Ce Sanchez, MOTION PICTURE CAMERA LENS TECHNICIAN, BUSINESS ACCOUNT SPECIALIST [id number] [place] [address] PCP - General Family Medicine 08/23/20
--- OUTSIDE RECORDS SUMMARY | 2024-10-08 08:13 | XMS_ITS | Clinical Summary ---
Author Organization [facility] Address [address] [place] [address] Phone Care Team Providers Care Cement Finisher Helper Name Role Phone Unavailable Unavailable Unavailable Reason for Visit and Chief Complaint REFERRAL Problems Includes: Problems addressed during this encounter and other active Problems All Visits Onset Date Resolved Date Provider Condition S tatus Depression with Anxiety 12/01/2014 LEON CISNEROS PA-C Active Last Documented On 5 1:57PM ; [facility] Arthralgia - Knee / Patella / Tibia / Fibula Left 12/01/2014 LEON MANCERA PA-C Active Last Documented On 5 1:56PM ; [facility] Arthralgias Multiple Sites 12/01/2014 LEON MANCERA PA-C Active Last Documented On 5 1:56PM ; [facility] Vitamin B12 Deficiency 02/24/2013 FLORY FERNANDO SHARE HOLDER-C Active Last Documented On 7 9:33AM ; [facility] Note: Unchanged Esophagitis Chronic Reflux 02/20/2012 LEON MANCERA PA-C Active Last Documented On 3 1:02PM ; [facility] Plan of Treatment Referrals To Diagnosis Orthopedic OLENA LOPEZ MD Pain in left kne e Last Documented On 7 10:18AM ; [facility] Assessments Includes: Assessments from this encounter No [...] 07/24/2018 4:34PM By MIGUELINA JOINER DO ; [facility] Cyanocobalamin 1000 MCG/ML IJ SOLN 08/19/2014 Provid er: LEON MANCERA PA-C Diagnosis: 1ML IM Q MONTH PLEASE DISPEN SE SYRINGES AND NEEDLES 27G X 5/8 IN Last Documented On 08/19/2014 8:21AM By KARINA HAYES ; [facility] BD Eclipse Syringe 25G X 5/8 3 ML MISC 02/10/2014 P rovider: LEON MANCERA PA-C Diagnosis: FOR B-12 Last Documented On 02/10/2014 5:04PM By LEON MANCERA PA-C ; [facility] Medications Administered Includes: Administered Medications from [...] Active Last Documented On 7 9:19AM ; [facility] Encounters Encounter Provider Location Date Check-In Time Check-Out Time Diagnosis REFERRAL VICKI JOINER D.O. 12/06/2016 3:31PM 11:59PM Clinical Notes Includes: Clinical Notes from this encounter No Clinical Notes Recorded
--- OUTSIDE RECORDS SUMMARY | 2024-10-08 08:13 | XMS_ITS | Clinical Summary ---
Author Organization [facility] Address [address] [place] [address] Phone Care Team Providers Care Shank Sander Name Role Phone Unavailable Unavailable Unavailable Reason for Visit and Chief Complaint REFERRAL Problems Includes: Problems addressed during this encounter and other active Problems All Visits Onset Date Resolved Date Provider Condition S tatus Depression with Anxiety 12/01/2014 LEON CISNEROS PA-C Active Last Documented On 5 1:57PM ; [facility] Arthralgia - Knee / Patella / Tibia / Fibula Left 12/01/2014 LEON MANCERA PA-C Active Last Documented On 5 1:56PM ; [facility] Arthralgias Multiple Sites 12/01/2014 LEON MANCERA PA-C Active Last Documented On 5 1:56PM ; [facility] Vitamin B12 Deficiency 02/24/2013 FLORY FERNANDO PRINT PRESS OPERATOR-C Active Last Documented On 7 9:33AM ; [facility] Note: Unchanged Esophagitis Chronic Reflux 02/20/2012 LEON MANCERA PA-C Active Last Documented On 3 1:02PM ; [facility] Plan of Treatment No Plan of Treatment [...] 07/24/2018 4:34PM By MIGUELINA JOINER DO ; [facility] Cyanocobalamin 1000 MCG/ML IJ SOLN 08/19/2014 Provid er: LEON MANCERA PA-C Diagnosis: 1ML IM Q MONTH PLEASE DISPEN SE SYRINGES AND NEEDLES 27G X 5/8 IN Last Documented On 08/19/2014 8:21AM By KARINA HAYES ; [facility] BD Eclipse Syringe 25G X 5/8 3 ML MISC 02/10/2014 P rovider: LEON MANCERA PA-C Diagnosis: FOR B-12 Last Documented On 02/10/2014 5:04PM By LEON MANCERA PA-C ; [facility] Past Medications on file LevoFLOXacin 500MG Oral Tablet 05/18/2017 - 05/28/2017 Provider: FLORY US Diagnosis: Acute pansinusit is, unspecified One tablet daily Last Documented On 7 9:52AM By FLORY US ; [facility] Cheratussin AC 100-10MG/5ML Oral Syrup 05/18/2017 - 06/17/2017 Provider: FLORY Falcon Diagnosis: Cough 10 ml oral every 6hrs as needed for cough. Last Documented On 7 9:52AM By FLORY US ; [facility] Azithromycin 250MG Oral Tablet 11/14/2016 - 12/14/2016 Provider: FLORY US Diagnosis: Streptococcal pharyngitis take 500mg oral day one, the n 250mg oral daiy days 2-4. Last Documented On 7 10:07AM By FLORY US ; [facility] Doxycycline Monohydrate 100MG Oral Tablet 10/04/2016 - 10/14/2016 Provider: JOSIANE GIBBS PA-C Diagnosis: One tablet twice a day Last Documented On 7 1:35PM By JOSIANE ADAMS PA-C ; [facility] Valtrex 500 MG Tablet 07/07/2016 - 07/10/2016 Provider: ASHLEY STEWART PA-C Diagnosis: Herpesviral infe ction of urogenital system, unspecified One tablet twice a day Last Documented On 6 12:17PM By ASHLEY STEWART PA-C ; [facility] Cyanocobalamin 1000 MCG/ML Solution 01/28/2016 - 01/30/2016 Provider: VICKI JOINER D.O. Diagnosis: DIRECTED INTRAMUSCULARLY EVERY MONTH PLEASE DISPENSE SYRINGES AND NEEDLES 27GX /8 IN Last Documented On 01/28/2016 11:41AM By ASHLEY RODRÍGUEZ LPN ; [facility] Tamiflu 75 MG Capsule, conventional 09/28/2015 - 10/03/2015 Provider: LEON MANCERA PA-C Diagnosis: Flu due to ident novel influenza A virus w oth resp manifest 1 CAPSULE TWO TIMES A DAY Last Documented On 09/28/2015 2:14PM By LEON MANCERA PA-C ; [facility] Zofran 4 MG Tablet 07/08/2015 - 07/11/2015 Provider: LEON MANCERA PA-C Diagnosis: 1 PO Q 8 H PRN NAUSEA Last Documented On 07/08/2015 3:33PM By LEON MANCERA PA-C ; [facility] Azithromycin 500 MG Tablet 04/27/2015 - 05/02/2015 Pro vider: LEON MANCERA PA-C Diagnosis: One tablet daily Last Documented On 5 12:12PM By LEON MANCERA PA-C ; [facility] Sulfamethoxazole-TMP DS 800- 160 MG OR TABS 08/21/2014 - 08/28/2014 Provider: LEON MANCERA PA-C Diagnosis: Last Documented On 08/21/2014 9:24AM By LEON MANCERA PA-C ; [facility] Ciprofloxacin HCl 250 MG OR TABS 08/19/2014 - 08/26/2014 Provider: LEON MANCERA PA-C Diagnosis: URIN TRACT INFEC TION NOS Last Documented On 08/19/2014 8:36AM By LEON MANCERA PA-C ; [facility] metroNIDAZOLE 500 MG OR TABS 08/19/2014 - 08/20/2014 Provider: LEON MANCERA PA-C Diagnosis: VAGINITIS NOS Last Documented On 08/19/2014 8:37AM By LEON MANCERA PA-C ; [facility] Azithromycin 500 MG OR TABS 06/30/2014 - 07/05/2014 Pr ovider: LEON MANCERA PA-C Diagnosis: Last Documented On 06/30/2014 2:42PM By LEON MANCERA PA-C ; [facility] Azithromycin 500 MG OR TABS 10/20/2013 - 10/25/2013 Provider: LEON MANCERA PA-C Diagnosis: STREP SORE THROA T Last Documented On 10/20/2013 11:21AM By STUDENT1 ; [facility] Benzonatate 200 MG OR CAPS 04/16/2013 - 05/01/2013 Pro vider: LEON MANCERA PA-C Diagnosis: Last Documented On 04/16/2013 1:44PM By LEON MANCERA PA-C ; [facility] metroNIDAZOLE 500 MG OR TABS 04/02/2013 - 04/03/2013 P rovider: LEON MANCERA PA-C Diagnosis: Last Documented On 04/02/2013 7:32AM By LEON MANCERA PA-C ; [facility] Cheratussin AC 100-10 MG/5ML OR SYRP 01/16/2013 - 01/26/2013 Provider: LEON MANCERA PA-C Diagnosis: BRONCHITIS NOS take 1 - 2 tsp AT BEDTIME FO R COUGH- DO NOT USE WITH HYDROCODONE INDIO Last Documented On 01/16/2013 8:45AM By LEON MANCERA PA-C ; [facility] Zithromax Z-Dante 250 MG OR TABS 01/16/2013 - 01/21/2013 Provider: LEON MANCERA PA-C Diagnosis: BRONCHITIS NOS Last Documented On 01/16/2013 8:46AM By LEON MANCERA PA-C ; [facility] Meloxicam 15 MG OR TABS 12/05/2012 - 11/30/2013 Provider: VICKI JOINER D.O. Diagnosis: Joint Pain-Lower /Leg Last Documented On 12/05/2012 8:30AM By ASHLEY RODRÍGUEZ LPN ; [facility] Ciprofloxacin HCl 250 MG OR TABS 10/11/2012 - 10/14/2012 Provider: GHULAM US Diagnosis: Last Documented On 3 1:49PM By GHULAM US ; [facility] Levaquin 250 MG OR TABS 05/29/2012 - 06/01/2012 Provid er: VICKI JOINER D.O. Diagnosis: Last Documented On 05/29/2012 11:05AM By ASHLEY RODRÍGUEZ LPN ; [facility] Valtrex 1 GM OR TABS 09/13/2011 - 09/13/2011 Provider: Diagnosis: Last Documented On 05/15/2012 7:54AM By SALLY VELÁSQUEZ MA ; [facility] Medications Administered Includes: Administered Medications from this encounter No Administered Medications Recorded Results Includes: Results discussed during this encounter No Results Recorded For Specified Dates History of Present Illness Includes: History of Present Illness from this encounter No History of Present Illness Recorded Social History Description Last Updated Current smoker 11/14/2016 Last Documented On 7 1:30PM ; [facility] Social history unchanged 11/14/2016 Last Documented On 7 1:30PM ; [facility] A social drinker 02/14/2016 Last Documented On 7 1:30PM ; [facility] Alcohol use 08/19/2014 Last Documented On 7 1:30PM ; [facility] Good exercise habits 08/19/2014 Last Documented On 7 1:30PM ; [facility] No caffeine use 08/19/2014 Last Documented On 7 1:30PM ; [facility] Not using drugs 08/19/2014 Last Documented On 7 1:30PM ; [facility] Sexually active 08/19/2014 Last Documented On 7 1:30PM ; [facility] Tobacco use 08/19/2014 Last Documented On 7 1:30PM ; [facility] Current smoker 09/03/2012 Last Documented On 7 1:30PM ; [facility] Smoking status : Current everyday smoker 12/07/2011 Last Documented On 7 1:30PM ; [facility] Medical History Includes: Medical History addressed during this encounter Description Last Updated Medication history Received controlled s ubstance from another provider 02/14/2016 Last Documented On 7 1:30PM ; [facility] No previous hospitalization for a drug o verdose 02/14/2016 Last Documented On 7 1:30PM ; [facility] No recent change in medical history 01/21 Last Documented On 7 1:30PM ; [facility] 2 08/19/2014 Last Documented On 7 1:30PM ; [facility] Last pap smear date 201108/19/2014 Last Documented On 7 1:30PM ; [facility] Para 1 08/19/2014 Last Documented On 7 1:30PM ; [facility] LMP: 2009 - Mirena 06/17/2013 Last Documented On 7 1:30PM ; [facility] Family History Includes: Family History addressed during this encounter Description Last Updated Family history unchanged 02/14/2016 Last Documented On 7 1:30PM ; [facility] Maternal history of heart disease 2015 Last Documented On 7 1:30PM ; [facility] Paternal history of acute myocardial inf arction 11/03/2015 Last Documented On 7 1:30PM ; [facility] Family history reviewed - unchanged sinc e last visit 06/25/2015 Last Documented On 7 1:30PM ; [facility] Review of Systems Includes: Review of Systems [...] Active Last Documented On 7 9:19AM ; [facility] Encounters Encounter Provider Location Date Check-In Time Check-Out Time Diagnosis REFERRAL VICKI JOINER D.O. 12/05/2016 1:30PM 11:59PM Clinical Notes Includes: Clinical Notes from this encounter No Clinical Notes Recorded
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
--- OUTSIDE RECORDS SUMMARY | 2024-10-08 08:18 | XMS_ITS | Clinical Summary ---
Author Organization [facility] Address [address] [place] [address] Phone Care Team Providers Care Oracle Applications Developer Name Role Phone Unavailable Unavailable Unavailable Reason for Visit and Chief Complaint REFERRAL Problems Includes: Problems addressed during this encounter and other active Problems All Visits Onset Date Resolved Date Provider Condition S tatus Depression with Anxiety 12/01/2014 LEON CISNEROS PA-C Active Last Documented On 5 1:57PM ; [facility] Arthralgia - Knee / Patella / Tibia / Fibula Left 12/01/2014 LEON MANCERA PA-C Active Last Documented On 5 1:56PM ; [facility] Arthralgias Multiple Sites 12/01/2014 LEON MANCERA PA-C Active Last Documented On 5 1:56PM ; [facility] Vitamin B12 Deficiency 02/24/2013 FLORY FERNANDO SAFETY SPECIALIST-C Active Last Documented On 7 9:33AM ; [facility] Note: Unchanged Esophagitis Chronic Reflux 02/20/2012 LEON MANCERA PA-C Active Last Documented On 3 1:02PM ; [facility] Plan of Treatment No Plan of [...] 07/24/2018 4:34PM By MIGUELINA JOINER DO ; [facility] Cyanocobalamin 1000 MCG/ML IJ SOLN 08/19/2014 Provid er: LEON MANCERA PA-C Diagnosis: 1ML IM Q MONTH PLEASE DISPEN SE SYRINGES AND NEEDLES 27G X 5/8 IN Last Documented On 08/19/2014 8:21AM By KARINA HAYES ; [facility] BD Eclipse Syringe 25G X 5/8 3 ML MISC 02/10/2014 P rovider: LEON MANCERA PA-C Diagnosis: FOR B-12 Last Documented On 02/10/2014 5:04PM By LEON MANCERA PA-C ; [facility] Past Medications on file LevoFLOXacin 500MG Oral Tablet 05/18/2017 - 05/28/2017 Provider: FLORY US Diagnosis: Acute pansinusit is, unspecified One tablet daily Last Documented On 7 9:52AM By FLORY US ; [facility] Cheratussin AC 100-10MG/5ML Oral Syrup 05/18/2017 - 06/17/2017 Provider: FLORY Falcon Diagnosis: Cough 10 ml oral every 6hrs as needed for cough. Last Documented On 7 9:52AM By FLROY US ; [facility] Azithromycin 250MG Oral Tablet 11/14/2016 - 12/14/2016 Provider: FLORY US Diagnosis: Streptococcal pharyngitis take 500mg oral day one, the n 250mg oral daiy days 2-4. Last Documented On 7 10:07AM By FLORY US ; [facility] Doxycycline Monohydrate 100MG Oral Tablet 10/04/2016 - 10/14/2016 Provider: JOSIANE GIBBS PA-C Diagnosis: One tablet twice a day Last Documented On 7 1:35PM By JOSIANE ADAMS PA-C ; [facility] Valtrex 500 MG Tablet 07/07/2016 - 07/10/2016 Provider: ASHLEY STEWART PA-C Diagnosis: Herpesviral infe ction of urogenital system, unspecified One tablet twice a day Last Documented On 6 12:17PM By ASHLEY STEWART PA-C ; [facility] Cyanocobalamin 1000 MCG/ML Solution 01/28/2016 - 01/30/2016 Provider: VICKI JOINER D.O. Diagnosis: DIRECTED INTRAMUSCULARLY EVERY MONTH PLEASE DISPENSE SYRINGES AND NEEDLES 27GX /8 IN Last Documented On 01/28/2016 11:41AM By ASHLEY RODRÍGUEZ LPN ; [facility] Tamiflu 75 MG Capsule, conventional 09/28/2015 - 10/03/2015 Provider: LEON MANCERA PA-C Diagnosis: Flu due to ident novel influenza A virus w oth resp manifest 1 CAPSULE TWO TIMES A DAY Last Documented On 09/28/2015 2:14PM By LEON MANCERA PA-C ; [facility] Zofran 4 MG Tablet 07/08/2015 - 07/11/2015 Provider: LEON MANCERA PA-C Diagnosis: 1 PO Q 8 H PRN NAUSEA Last Documented On 07/08/2015 3:33PM By LEON MANCERA PA-C ; [facility] Azithromycin 500 MG Tablet 04/27/2015 - 05/02/2015 Pro vider: LEON MANCERA PA-C Diagnosis: One tablet daily Last Documented On 5 12:12PM By LEON MANCERA PA-C ; [facility] Sulfamethoxazole-TMP DS 800- 160 MG OR TABS 08/21/2014 - 08/28/2014 Provider: LEON MANCERA PA-C Diagnosis: Last Documented On 08/21/2014 9:24AM By LEON MANCERA PA-C ; [facility] Ciprofloxacin HCl 250 MG OR TABS 08/19/2014 - 08/26/2014 Provider: LEON MANCERA PA-C Diagnosis: URIN TRACT INFEC TION NOS Last Documented On 08/19/2014 8:36AM By LEON MANCERA PA-C ; [facility] metroNIDAZOLE 500 MG OR TABS 08/19/2014 - 08/20/2014 Provider: LEON MANCERA PA-C Diagnosis: VAGINITIS NOS Last Documented On 08/19/2014 8:37AM By LEON MANCERA PA-C ; [facility] Azithromycin 500 MG OR TABS 06/30/2014 - 07/05/2014 Pr ovider: LEON MANCERA PA-C Diagnosis: Last Documented On 06/30/2014 2:42PM By LEON MANCERA PA-C ; [facility] Azithromycin 500 MG OR TABS 10/20/2013 - 10/25/2013 Provider: LEON MANCERA PA-C Diagnosis: STREP SORE THROA T Last Documented On 10/20/2013 11:21AM By [email or web address] ; [facility] Benzonatate 200 MG OR CAPS 04/16/2013 - 05/01/2013 Pro vider: LEON MANCERA PA-C Diagnosis: Last Documented On 04/16/2013 1:44PM By LEON MANCERA PA-C ; [facility] metroNIDAZOLE 500 MG OR TABS 04/02/2013 - 04/03/2013 P rovider: LEON MANCERA PA-C Diagnosis: Last Documented On 04/02/2013 7:32AM By LEON MANCERA PA-C ; [facility] Cheratussin AC 100-10 MG/5ML OR SYRP 01/16/2013 - 01/26/2013 Provider: LEON MANCERA PA-C Diagnosis: BRONCHITIS NOS take 1 - 2 tsp AT BEDTIME FO R COUGH- DO NOT USE WITH HYDROCODONE INDIO Last Documented On 01/16/2013 8:45AM By LEON MANCERA PA-C ; [facility] Zithromax Z-Dante 250 MG OR TABS 01/16/2013 - 01/21/2013 Provider: LEON MANCERA PA-C Diagnosis: BRONCHITIS NOS Last Documented On 01/16/2013 8:46AM By LEON MANCERA PA-C ; [facility] Meloxicam 15 MG OR TABS 12/05/2012 - 11/30/2013 Provider: VICKI JOINER D.O. Diagnosis: Joint Pain-Lower /Leg Last Documented On 12/05/2012 8:30AM By ASHLEY RODRÍGUEZ LPN ; [facility] Ciprofloxacin HCl 250 MG OR TABS 10/11/2012 - 10/14/2012 Provider: GHULAM US Diagnosis: Last Documented On 3 1:49PM By GHULAM US ; [facility] Levaquin 250 MG OR TABS 05/29/2012 - 06/01/2012 Provid er: VICKI JOINER D.O. Diagnosis: Last Documented On 05/29/2012 11:05AM By ASHLEY RODRÍGUEZ LPN ; [facility] Valtrex 1 GM OR TABS 09/13/2011 - 09/13/2011 Provider: Diagnosis: Last Documented On 05/15/2012 7:54AM By SALLY VELÁSQUEZ MA ; [facility] Medications Administered Includes: Administered Medications from this encounter No Administered Medications Recorded Results Includes: Results discussed during this encounter No Results Recorded For Specified Dates History of Present Illness Includes: History of Present Illness from this encounter No History of Present Illness Recorded Social History Description Last Updated Current smoker 11/14/2016 Last Documented On 7 1:30PM ; [facility] Social history unchanged 11/14/2016 Last Documented On 7 1:30PM ; [facility] A social drinker 02/14/2016 Last Documented On 7 1:30PM ; [facility] Alcohol use 08/19/2014 Last Documented On 7 1:30PM ; [facility] Good exercise habits 08/19/2014 Last Documented On 7 1:30PM ; [facility] No caffeine use 08/19/2014 Last Documented On 7 1:30PM ; [facility] Not using drugs 08/19/2014 Last Documented On 7 1:30PM ; [facility] Sexually active 08/19/2014 Last Documented On 7 1:30PM ; [facility] Tobacco use 08/19/2014 Last Documented On 7 1:30PM ; [facility] Current smoker 09/03/2012 Last Documented On 7 1:30PM ; [facility] Smoking status : Current everyday smoker 12/07/2011 Last Documented On 7 1:30PM ; [facility] Medical History Includes: Medical History addressed during this encounter Description Last Updated Medication history Received controlled s ubstance from another provider 02/14/2016 Last Documented On 7 1:30PM ; [facility] No previous hospitalization for a drug o verdose 02/14/2016 Last Documented On 7 1:30PM ; [facility] No recent change in medical history 01/21 Last Documented On 7 1:30PM ; [facility] 2 08/19/2014 Last Documented On 7 1:30PM ; [facility] Last pap smear date 201108/19/2014 Last Documented On 7 1:30PM ; [facility] Para 1 08/19/2014 Last Documented On 7 1:30PM ; [facility] LMP: 2009 - Mirena 06/17/2013 Last Documented On 7 1:30PM ; [facility] Family History Includes: Family History addressed during this encounter Description Last Updated Family history unchanged 02/14/2016 Last Documented On 7 1:30PM ; [facility] Maternal history of heart disease 2015 Last Documented On 7 1:30PM ; [facility] Paternal history of acute myocardial inf arction 11/03/2015 Last Documented On 7 1:30PM ; [facility] Family history reviewed - unchanged sinc e last visit 06/25/2015 Last Documented On 7 1:30PM ; [facility] Review of Systems Includes: Review of Systems [...] Documented On 7 9:19AM ; [facility] Encounters Encounter Provider Location Date Check-In Time Check-Out Time Diagnosis REFERRAL VICKI JOINER D.O. 12/05/2016 1:30PM 11:59PM Clinical Notes Includes: Clinical Notes from this encounter No Clinical Notes Recorded
--- OUTSIDE RECORDS SUMMARY | 2024-10-08 08:18 | XMS_ITS | Clinical Summary ---
Author Organization [facility] Address [address] [place] [address] Phone Care Team Providers Care Four H Agent Name Role Phone Unavailable Unavailable Unavailable Reason for Visit and Chief Complaint * PHONE CALL Problems Includes: Problems addressed during this encounter and other active Problems All Visits Onset Date Resolved Date Provider Condition S tatus Depression with Anxiety 12/01/2014 LEON CISNEROS PA-C Active Last Documented On 5 1:57PM ; [facility] Arthralgia - Knee / Patella / Tibia / Fibula Left 12/01/2014 LEON MANCERA PA-C Active Last Documented On 5 1:56PM ; [facility] Arthralgias Multiple Sites 12/01/2014 LEON MANCERA PA-C Active Last Documented On 5 1:56PM ; [facility] Vitamin B12 Deficiency 02/24/2013 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 Last Documented On 7 9:33AM ; [facility] Note: Unchanged Esophagitis Chronic Reflux 02/20/2012 LEON MANCERA PA-C Active Last Documented On 3 1:02PM ; [facility] Plan of Treatment No Plan [...] Documented On 07/24/2018 4:34PM By MIGUELINA THOMPSON [facility] Cyanocobalamin 1000 MCG/ML IJ SOLN 08/19/2014 Provid er: LEON MANCERA PA-C Diagnosis: 1ML IM Q MONTH PLEASE DISPEN SE SYRINGES AND NEEDLES 27G X 5/8 IN Last Documented On 08/19/2014 8:21AM By KARINA HAYES ; [facility] BD Eclipse Syringe 25G X 5/8 3 ML MISC 02/10/2014 P rovider: LEON MANCERA PA-C Diagnosis: FOR B-12 Last Documented On 02/10/2014 5:04PM By LEON MANCERA PA-C ; [facility] Past Medications on file LevoFLOXacin 500MG Oral Tablet 05/18/2017 - 05/28/2017 Provider: FLORY US Diagnosis: Acute pansinusit is, unspecified One tablet daily Last Documented On 7 9:52AM By FLORY US ; [facility] Cheratussin AC 100-10MG/5ML Oral Syrup 05/18/2017 - 06/17/2017 Provider: FLORY Falcon Diagnosis: Cough 10 ml oral every 6hrs as needed for cough. Last Documented On 7 9:52AM By FLORY US ; [facility] Azithromycin 250MG Oral Tablet 11/14/2016 - 12/14/2016 Provider: FLORY US Diagnosis: Streptococcal pharyngitis take 500mg oral day one, the n 250mg oral daiy days 2-4. Last Documented On 7 10:07AM By FLORY US ; [facility] Doxycycline Monohydrate 100MG Oral Tablet [...] 01/28/2016 11:41AM By ASHLEY RODRÍGUEZ LPN ; [facility] Tamiflu 75 MG Capsule, conventional 09/28/2015 - 10/03/2015 Provider: LEON MANCERA PA-C Diagnosis: Flu due to ident novel influenza A virus w oth resp manifest 1 CAPSULE TWO TIMES A DAY Last Documented On 09/28/2015 2:14PM By LEON MANCERA PA-C ; [facility] Zofran 4 MG Tablet 07/08/2015 - 07/11/2015 Provider: LEON MANCERA PA-C Diagnosis: 1 PO Q 8 H PRN NAUSEA Last Documented On 07/08/2015 3:33PM By LEON MANCERA PA-C ; [facility] Azithromycin 500 MG Tablet 04/27/2015 - 05/02/2015 Pro vider: LEON MANCERA PA-C Diagnosis: One tablet daily Last Documented On 5 12:12PM By LEON MANCERA PA-C ; [facility] Sulfamethoxazole-TMP DS 800- 160 MG OR TABS 08/21/2014 - 08/28/2014 Provider: LEON MANCERA PA-C Diagnosis: Last Documented On 08/21/2014 9:24AM By LEON MANCERA PA-C ; [facility] Ciprofloxacin HCl 250 MG OR TABS 08/19/2014 - 08/26/2014 Provider: LEON MANCERA PA-C Diagnosis: URIN TRACT INFEC TION NOS Last Documented On 08/19/2014 8:36AM By LEON MANCERA PA-C ; [facility] metroNIDAZOLE 500 MG OR TABS 08/19/2014 - 08/20/2014 Provider: LEON MANCERA PA-C Diagnosis: VAGINITIS NOS Last Documented On 08/19/2014 8:37AM By LEON MANCERA PA-C ; [facility] Azithromycin 500 MG OR TABS 06/30/2014 - 07/05/2014 Pr ovider: LEON MANCERA PA-C Diagnosis: Last Documented On 06/30/2014 2:42PM By LEON MANCERA PA-C ; [facility] Azithromycin 500 MG OR TABS 10/20/2013 - 10/25/2013 Provider: LEON MANCERA PA-C Diagnosis: STREP SORE THROA T Last Documented On 10/20/2013 11:21AM By [email or web address] ; [facility] Benzonatate 200 MG OR CAPS 04/16/2013 - 05/01/2013 Pro vider: LEON MANCERA PA-C Diagnosis: Last Documented On 04/16/2013 1:44PM By LEON MANCERA PA-C ; [facility] metroNIDAZOLE 500 MG OR TABS 04/02/2013 - 04/03/2013 P rovider: LEON MANCERA PA-C Diagnosis: Last Documented On 04/02/2013 7:32AM By LEON MANCERA PA-C ; [facility] Cheratussin AC 100-10 MG/5ML OR SYRP [...] ; [facility] Medications Administered Includes: Administered Medications from this encounter No Administered Medications Recorded Results Includes: Results discussed during this encounter No Results Recorded For Specified Dates History of Present Illness Includes: History of Present Illness from this encounter No History of Present Illness Recorded Social History Description Last Updated Current smoker 11/14/2016 Last Documented On 7 10:02AM ; [facility] Social history unchanged 11/14/2016 Last Documented On 7 10:02AM ; [facility] A social drinker 02/14/2016 Last Documented On 7 10:02AM ; [facility] Alcohol use 08/19/2014 Last Documented On 7 10:02AM ; [facility] Good exercise habits 08/19/2014 Last Documented On 7 10:02AM ; [facility] No caffeine use 08/19/2014 Last Documented On 7 10:02AM ; [facility] Not using drugs 08/19/2014 Last Documented On 7 10:02AM ; [facility] Sexually active 08/19/2014 Last Documented On 7 10:02AM ; [facility] Tobacco use 08/19/2014 Last Documented On 7 10:02AM ; [facility] Current smoker 09/03/2012 Last Documented On 7 10:02AM ; [facility] Smoking status : Current everyday smoker 12/07/2011 Last Documented On 7 10:02AM ; [facility] Medical History Includes: Medical History addressed during this encounter Description Last Updated Medication history Received controlled s ubstance from another provider 02/14/2016 Last Documented On 7 10:02AM ; [facility] No previous hospitalization for a drug o verdose 02/14/2016 Last Documented On 7 10:02AM ; [facility] No recent change in medical history 01/21 Last Documented On 7 10:02AM ; [facility] 2 08/19/2014 Last Documented On 7 10:02AM ; [facility] Last pap smear date 201108/19/2014 Last Documented On 7 10:02AM ; [facility] Para 1 08/19/2014 Last Documented On 7 10:02AM ; [facility] LMP: 2009 - Mirena 06/17/2013 Last Documented On 7 10:02AM ; [facility] Family History Includes: Family History addressed during this encounter Description Last Updated Family history unchanged 02/14/2016 Last Documented On 7 10:02AM ; [facility] Maternal history of heart disease 2015 Last Documented On 7 10:02AM ; [facility] Paternal history of acute myocardial inf arction 11/03/2015 Last Documented On 7 10:02AM ; [facility] Family history reviewed - unchanged sinc e last visit 06/25/2015 Last Documented On 7 10:02AM ; [facility] Review of Systems Includes: Review of [...] Active Last Documented On 7 9:19AM ; [facility] Encounters Encounter Provider Location Date Check-In Time Check-Out Time Diagnosis * PHONE CALL VICKI JOINER D.O. 01/15/2017 10:02AM 11:59PM Clinical Notes Includes: Clinical Notes from this encounter No Clinical Notes Recorded
--- OUTSIDE RECORDS SUMMARY | 2024-10-08 08:18 | XMS_ITS ---
Care Plan - [facility] Created on: October 08, 2024 SALLY VELÁSQUEZ : 1985 Sex: Female Author Organization [facility] Address [address] [place] [address] Phone Care Team Providers Care Fish Butcher Name Role Phone Unavailable Unavailable Unavailable
--- OUTSIDE RECORDS SUMMARY | 2024-10-08 08:19 | XMS_ITS | Clinical Summary ---
Author Organization [facility] Address [address] [place] [address] Phone Care Team Providers Care Electroplater Automatic Name Role Phone Unavailable Unavailable Unavailable Reason for Visit and Chief Complaint REFERRAL Problems Includes: Problems addressed during this encounter and other active Problems All Visits Onset Date Resolved Date Provider Condition S tatus Depression with Anxiety 12/01/2014 LEON CISNEROS PA-C Active Last Documented On 5 1:57PM ; [facility] Arthralgia - Knee / Patella / Tibia / Fibula Left 12/01/2014 LEON MANCERA PA-C Active Last Documented On 5 1:56PM ; [facility] Arthralgias Multiple Sites 12/01/2014 LEON MANCERA PA-C Active Last Documented On 5 1:56PM ; [facility] Vitamin B12 Deficiency 02/24/2013 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 Last Documented On 7 9:33AM ; [facility] Note: Unchanged Esophagitis Chronic Reflux 02/20/2012 LEON MANCERA PA-C Active Last Documented On 3 1:02PM ; [facility] Plan of Treatment Referrals To Diagnosis Orthopedic OLENA LOPEZ MD Pain in left kne e Last Documented On 7 10:18AM ; [facility] Assessments Includes: Assessments from this encounter No [...] 07/24/2018 4:34PM By MIGUELINA JOINER DO ; [facility] Cyanocobalamin 1000 MCG/ML IJ SOLN 08/19/2014 Provid er: LEON MANCERA PA-C Diagnosis: 1ML IM Q MONTH PLEASE DISPEN SE SYRINGES AND NEEDLES 27G X 5/8 IN Last Documented On 08/19/2014 8:21AM By KARINA HAYES ; [facility] BD Eclipse Syringe 25G X 5/8 3 ML MISC 02/10/2014 P rovider: LEON MANCERA PA-C Diagnosis: FOR B-12 Last Documented On 02/10/2014 5:04PM By LEON MACNERA PA-C ; [facility] Medications Administered Includes: Administered Medications from this [...] Active Last Documented On 7 9:19AM ; [facility] Encounters Encounter Provider Location Date Check-In Time Check-Out Time Diagnosis REFERRAL VICKI JOINER D.O. 12/06/2016 3:31PM 11:59PM Clinical Notes Includes: Clinical Notes from this encounter No Clinical Notes Recorded
--- OUTSIDE RECORDS SUMMARY | 2024-10-08 08:19 | XMS_ITS | Clinical Summary ---
Author Organization [facility] Address [address] [address] Phone Care Team Providers Care Chief Medical Technologist Name Role Phone Unavailable Unavailable Unavailable Reason [...] Active Last Documented On 5 1:57PM ; [facility] Arthralgia - Knee / Patella / Tibia / Fibula Left 12/01/2014 LEON MANCERA PA-C Active Last Documented On 5 1:56PM ; [facility] Arthralgias Multiple Sites 12/01/2014 LEON MANCERA PA-C Active Last Documented On 5 1:56PM ; [facility] Vitamin B12 Deficiency 02/24/2013 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 - Last Documented On 06/04/2017 10:02AM ; [facility] Referrals To Diagnosis It Support Technician FARIHA NICHOLS MD - [facility] - [address] [place] [address] - Encounter for contraceptive management, unspecified Note: Needs mirena removed a nd replaced. It has been 8 years. Prefers appt in [place]. 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[employer] [facility] - [address] [phone] - Idiopathic aseptic necrosis of unspecified bone Last Documented On 7 8:24AM ; [facility] Assessments Includes: Assessments from this encounter Findings - Acute sinusitis [Acute pansinusitis, unspecified] - Last Documented On 06/04/2017 10:02AM ; [facility] Medical Equipment - Implanted Devices Includes: Current Devices No Medical Equipment Recorded Medications Includes: Medications discussed during this encounter and other current Medications Discontinued / Stopped on this date VICKI JOINER D.O. on 11/14/2016 Hydrocodone-Acetaminophen 7. 5-325MG Oral Tablet Provider: VICKI JOINER D.O. Diagnosis: Pain in unspecif ied joint Last Documented On 05/18/2017 9:19AM By BECKY POLK LPN ; [facility] New / Renewed during this visit FLORY US on 05/18/2017 LevoFLOXacin 500MG Oral Tablet Provider: FLORY US 10 day supply: 10 tablet, 0 refills Diagnosis: Acute pansinusitis, unspecified One tablet daily Pharmacy: [facility] - [address] [place] [address], [phone] - Last Documented On 7 9:52AM By FLORY US ; [facility] Cheratussin AC 100-10MG/5ML Oral Syrup Provider: FLORY US 30 day supply: 100 millilite r, 0 refills Diagnosis: Cough 10 ml oral every 6hrs as nee ded for cough. Pharmacy: [facility] - [address], [phone] - Last Documented On 7 9:52AM By FLORY US ; [facility] Current Medications (continue as prescribed) Sertraline HCl 100MG Oral Tablet 07/24/2018 Provider : VICKI A VOIGTS D.O. Diagnosis: Dysthymic disord er TAKE 2 TABLETS NIGHTLY DIRECTED Last Documented On 07/24/2018 4:34PM By MIGUELINA JOINER DO ; [facility] Cyanocobalamin 1000 MCG/ML IJ SOLN 08/19/2014 Provid er: LEON MANCERA PA-C Diagnosis: 1ML IM Q MONTH PLEASE DISPEN SE SYRINGES AND NEEDLES 27G X 5/8 IN Last Documented On 08/19/2014 8:21AM By KARINA HAYES ; [facility] BD Eclipse Syringe 25G X 5/8 3 ML MISC 02/10/2014 P rovider: LEON MANCERA PA-C Diagnosis: FOR B-12 Last Documented On 02/10/2014 5:04PM By LEON MANCERA PA-C ; [facility] Past Medications on file Azithromycin 250MG Oral Tablet 11/14/2016 - 12/14/2016 Provider: FLORY US Diagnosis: Streptococcal pharyngitis take 500mg oral day one, the n 250mg oral daiy days 2-4. Last Documented On 7 10:07AM By FLORY US ; [facility] Doxycycline Monohydrate 100MG Oral Tablet 10/04/2016 - 10/14/2016 Provider: JOSIANE GIBBS PA-C Diagnosis: One tablet twice a day Last Documented On 7 1:35PM By JOSIANE ADAMS PA-C ; [facility] Valtrex 500 MG Tablet 07/07/2016 - 07/10/2016 Provider: ASHLEY STEWART PA-C Diagnosis: Herpesviral infe ction of urogenital system, unspecified One tablet twice a day Last Documented On 6 12:17PM By ASHLEY STEWART PA-C ; [facility] Cyanocobalamin 1000 MCG/ML Solution 01/28/2016 - 01/30/2016 Provider: VICKI JOINER D.O. Diagnosis: DIRECTED INTRAMUSCULARLY EVERY MONTH PLEASE DISPENSE SYRINGES AND NEEDLES 27GX 5/8 IN Last Documented On 01/28/2016 11:41AM By ASHLEY RODRÍGUEZ LPN ; [facility] Tamiflu 75 MG Capsule, conventional 09/28/2015 - 10/03/2015 Provider: LEON MANCERA PA-C Diagnosis: Flu due to ident novel influenza A virus w oth resp manifest 1 CAPSULE TWO TIMES A DAY Last Documented On 09/28/2015 2:14PM By LEON MANCERA PA-C ; [facility] Zofran 4 MG Tablet 07/08/2015 - 07/11/2015 Provider: LEON MANCERA PA-C Diagnosis: 1 PO Q 8 H PRN NAUSEA Last Documented On 07/08/2015 3:33PM By LEON MANCERA PA-C ; [facility] Azithromycin 500 MG Tablet 04/27/2015 - 05/02/2015 Pro vider: LEON MANCERA PA-C Diagnosis: One tablet daily Last Documented On 5 12:12PM By LEON MANCERA PA-C ; [facility] Sulfamethoxazole-TMP DS 800- 160 MG OR TABS 08/21/2014 - 08/28/2014 Provider: LEON MANCERA PA-C Diagnosis: Last Documented On 08/21/2014 9:24AM By LEON MANCERA PA-C ; [facility] Ciprofloxacin HCl 250 MG OR TABS 08/19/2014 - 08/26/2014 Provider: LEON MANCERA PA-C Diagnosis: URIN TRACT INFEC TION NOS Last Documented On 08/19/2014 8:36AM By LEON MANCERA PA-C ; [facility] metroNIDAZOLE 500 MG OR TABS 08/19/2014 - 08/20/2014 Provider: LEON MANCERA PA-C Diagnosis: VAGINITIS NOS Last Documented On 08/19/2014 8:37AM By LEON MANCERA PA-C ; [facility] Azithromycin 500 MG OR TABS 06/30/2014 - 07/05/2014 Pr ovider: LEON MANCERA PA-C Diagnosis: Last Documented On 06/30/2014 2:42PM By LEON MANCERA PA-C ; [facility] Azithromycin 500 MG OR TABS 10/20/2013 - 10/25/2013 Provider: LEON MANCERA PA-C Diagnosis: STREP SORE THROA T Last Documented On 10/20/2013 11:21AM By [email or web address] ; [facility] Benzonatate 200 MG OR CAPS 04/16/2013 - 05/01/2013 Pro vider: LEON MANCERA PA-C Diagnosis: Last Documented On 04/16/2013 1:44PM By LEON MANCERA PA-C ; [facility] metroNIDAZOLE 500 MG OR TABS 04/02/2013 - 04/03/2013 Altagracia schwartzder: LEON MANCERA PA-C Diagnosis: Last Documented On 04/02/2013 7:32AM By LEON MANCERA PA-C ; [facility] Cheratussin AC 100-10 MG/5ML OR SYRP 01/16/2013 - 01/26/2013 Provider: LEON MANCERA PA-C Diagnosis: BRONCHITIS NOS take 1 - 2 tsp AT BEDTIME FO R COUGH- DO NOT USE WITH HYDROCODONE INDIO Last Documented On 01/16/2013 8:45AM By LEON MANCERA PA-C ; [facility] Zithromax Z-Dante 250 MG OR TABS 01/16/2013 - 01/21/2013 Provider: LEON MANCERA PA-C Diagnosis: BRONCHITIS NOS Last Documented On 01/16/2013 8:46AM By LEON MANCERA PA-C ; [facility] Meloxicam 15 MG OR TABS 12/05/2012 - 11/30/2013 Provider: VICKI JOINER D.O. Diagnosis: Joint Pain-Lower /Leg Last Documented On 12/05/2012 8:30AM By ASHLEY RODRÍGUEZ LPN ; [facility] Ciprofloxacin HCl 250 MG OR TABS 10/11/2012 - 10/14/2012 Provider: GHULAM US Diagnosis: Last Documented On 3 1:49PM By GHULAM US ; [facility] Levaquin 250 MG OR TABS 05/29/2012 - 06/01/2012 Provid er: VICKI JOINER D.O. Diagnosis: Last Documented On 05/29/2012 11:05AM By ASHLEY RODRÍGUEZ LPN ; [facility] Valtrex 1 GM OR TABS 09/13/2011 - 09/13/2011 Provider: Diagnosis: Last Documented On 05/15/2012 7:54AM By SALLY VELÁSQUEZ MA ; [facility] Medications Administered Includes: Administered Medications from this [...] 1.9 Last Documented: On 05/18/2017 9:23AM ; [facility] Results Includes: Results discussed during [...] 11/14/2016 Last Documented On 7 9:16AM ; [facility] Social history unchanged 11/14/2016 Last Documented On 7 9:16AM ; [facility] A social drinker 02/14/2016 Last Documented On 7 9:16AM ; [facility] Alcohol use 08/19/2014 Last Documented On 7 9:16AM ; [facility] Good exercise habits 08/19/2014 Last Documented On 7 9:16AM ; [facility] No caffeine use 08/19/2014 Last Documented On 7 9:16AM ; [facility] Not using drugs 08/19/2014 Last Documented On 7 9:16AM ; [facility] Sexually active 08/19/2014 Last Documented On 7 9:16AM ; [facility] Tobacco use 08/19/2014 Last Documented On 7 9:16AM ; [facility] Current smoker 09/03/2012 Last Documented On 7 9:16AM ; [facility] Smoking status : Current everyday smoker 12/07/2011 Last Documented On 7 9:16AM ; [facility] Procedures and Surgical History Includes: Procedures from this encounter Procedures Code Diagnosis Performing Provider Service L ocation Service Date Pt to use OTC fever/pain product as needed per product instruction.~ Last Documented On 7 9:40AM ; [facility] Continue mucinex as previous Last Documented On 7 9:40AM ; [facility] Medical History Includes: Medical History addressed during this encounter Description Last Updated Taking OTC allergy medication 05/18/2017 Last Documented On 7 10:02AM ; [facility] Taking OTC cold medication 05/18/2017 Last Documented On 7 10:02AM ; [facility] Taking OTC medications 05/18/2017 Last Documented On 7 10:02AM ; [facility] Taking OTC medications for cough 017 Last Documented On 7 10:02AM ; [facility] Taking OTC pain medication / fever. Usin g Motrin 05/18/2017 Last Documented On 7 10:02AM ; [facility] Taking OTC pain medication /fever. Using Tylenol 05/18/2017 Last Documented On 7 10:02AM ; [facility] Medication history Received controlled s ubstance from another provider 02/14/2016 Last Documented On 7 9:16AM ; [facility] No previous hospitalization for a drug o verdose 02/14/2016 Last Documented On 7 9:16AM ; [facility] No recent change in medical history 01/21 Last Documented On 7 9:16AM ; [facility] 2 08/19/2014 Last Documented On 7 9:16AM ; [facility] Last pap smear date 201108/19/2014 Last Documented On 7 9:16AM ; [facility] Para 1 08/19/2014 Last Documented On 7 9:16AM ; [facility] LMP: 2009 - Mirena 06/17/2013 Last Documented On 7 9:16AM ; [facility] Family History Includes: Family History addressed during this encounter Description Last Updated Family history unchanged 02/14/2016 Last Documented On 7 9:16AM ; [facility] Maternal history of heart disease 2015 Last Documented On 7 9:16AM ; [facility] Paternal history of acute myocardial inf arction 11/03/2015 Last Documented On 7 9:16AM ; [facility] Family history reviewed - unchanged sinc e last visit 06/25/2015 Last Documented On 7 9:16AM ; [facility] Review of Systems Includes: Review [...] Active Last Documented On 7 9:19AM ; [facility] Encounters Encounter Provider Location Date Check-In Time Check-Out Time Diagnosis SICK VISIT FLORY DEJESUS-Juliana [facility] 7 9:11AM 9:50AM Sinusitis Acute Clinical Notes Includes: Clinical Notes from this encounter No Clinical Notes Recorded
--- OUTSIDE RECORDS SUMMARY | 2024-10-08 08:19 | XMS_ITS | Continuity of Care Document ---
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 [address] [place] [address], [facility], . tel: [phone] [facility], [address] [place] [address], [facility], [place] tel: [phone] [facility] No Information 4 Hank Hazel. [address] [place] [address], . tel: [phone] OFFICE/OUTPA TIENT VISIT, EST [facility], [address] [place] [address], tel: [phone] [facility] FOLLOW UP (chief complaint) Mixed hyperlipidemiaP ain in right shoulderDysthym ic disorderObesity , unspecifiedNico nadia dependence, unspecified, uncomplicated 4 Hank Angeldal. [address] [place], [address], [place]. tel: [phone] OFFICE/OUTPA TIENT VISIT, [facility], [address] [place] [address], [address], [place] tel:[phone] [facility] medications (chief complaint) Dysthymic disorder 3 Brown Yasemin. [address] [place], [address], [place]. tel: [phone] [facility], [address] [place] [address], [address], [place] tel: [phone] [facility] Pain in right shoulder 3 Brown Yasemin. [address] [place], [address], [place]. tel: [phone] OFFICE/OUTPA TIENT VISIT, [facility], [address] [place] [address], [address], [place] tel: [phone] [facility] RIGHT SHOULDER PAIN (chief complaint) Pain in right shoulder 3 Brown Yasemin. [address] [place], [address], [place]. tel: [phone] [facility], [address] [place] [address], [address], [place] tel:[phone] [facility] Acute pain of right wrist Sep- 3 Brown Yasemin. [address] [place], [address], [place]. tel: [phone] OFFICE/OUTPA TIENT VISIT, [facility], [address] [place] [address], [address], [place] tel: [phone] [facility] INJECTION (chief complaint) Pain in right shoulder Aug-0 3 Brown Yasemin. [address] [place], [address], [place]. tel: [phone] OFFICE/OUTPA TIENT VISIT, [facility], [address] [place] [address], [facility], [place] tel: [phone] [facility] est care (chief complaint)an xiety (chief complaint)GY N referral (chief complaint) Pain in right shoulderDysthym ic disorderEncount er to establish careEncounter for lipid screening for cardiovascular diseaseObesity, unspecifiedNico nadia dependence, unspecified, uncomplicatedPr esence of IUDPap smear for cervical cancer screening 3 Hank Hazel. [address] [place] [address], [facility], [place]. tel: [phone] [facility], [address] [place] [address], [facility], [place] tel: [phone] [facility] No Information 2 Hank Hazel. [address] [place] [address], [facility], [place]. tel: [phone] [facility], [address] [place] [address], [facility], [place] tel: [phone] [facility] BV (bacterial vaginosis)Other specified bacterial agents as the cause of diseases classified elsewhere 2 Hank Angeldal. [address] [place] [address], [address], [place]. tel: [phone] [facility], [address] [place] [address], [facility], [place] tel: [phone] [place] FLU SHOT (chief complaint) No Information 2 Smith Gulam. [address] [place] [address], [address], [place]. tel: [phone] OFFICE/OUTPA TIENT VISIT, [facility], [address] [place] [address], [facility], [place] tel: [phone] [place] SPOT ON HEAD (chief complaint) Cyst of skin 2 Daniel Encinas. [address] [place] [address], [address], [place]. 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 [address] [place] [address], [facility], . tel: [phone] OFFICE/OUTPA TIENT VISIT, [facility], [address] [place] [address], [facility], [place] tel: [phone] [facility] med refills (chief complaint) Depression 1 Daniel Encinas. [address] [place] [address], [facility], [place]. tel: [phone] OFFICE/OUTPA TIENT VISIT, [facility], [address] [place] [address], [facility], tel: [phone] [place] LEFT HAND INJURY FROM FALL (chief complaint) Pain in left handAvulsion fracture 1 Daniel Encinas. [address] [place], [place], [facility], [place]. tel: [phone] OFFICE/OUTPA TIENT VISIT, [facility], [address] [place] [address], [facility], [place] tel: [phone] [place] ASPIRATION PNEUMONIA (chief complaint) OdynophagiaCoug h 1 Debra Erickson. [address] [place] [address], [facility], [place]. tel: [phone] OFFICE/OUTPA TIENT VISIT, [facility], [address] [place] [address], [facility], [place] tel: [phone] [place] REFERRAL KNEE (chief complaint) Pain in left knee 0 Daniel Encinas. [address] [place] [address], [facility], [place]. tel: [phone] OFFICE/OUTPA TIENT VISIT, [facility], [address] [place] [address], [facility], [place] tel: [phone] [facility] FEVER/EARACH E/SORE THORAT (chief complaint) Acute upper respiratory infection, unspecified 0 Daniel Encinas. [address] [place], [place], [facility], . tel: [phone] [facility], [address] [place] [address], [facility], tel: [phone] [facility] Rash 0 Daniel Garduno [address] [place], [place], [facility], [place]. tel: [phone] OFFICE/OUTPA TIENT VISIT, [facility], [address] [place] [address], [facility], tel: [phone] [place] Back pain (chief complaint) Acute right-sided low back pain, unspecified whether sciatica present 9 Praveen Adams. [address] [place] [address], [facility], . tel: [phone] [facility], [address] [place] [address], [facility], tel: [phone] [facility] TendinopathyPai n in right shoulder 9 Daniel Encinas. [address] [place] [address], [facility], . tel: [phone] OFFICE/OUTPA TIENT VISIT, [facility], [address] [place] [address], [facility], tel: [phone] [facility] HIVES (chief complaint). (chief complaint) RashPain in right shoulderPain of left shoulder region 9 Daniel Encinas. [address] [place], [place], [facility], [place]. tel: [phone] OFFICE/OUTPA TIENT VISIT, [facility], [address] [place] [address], [facility], tel: [phone] [facility] MED REFILLS (chief complaint) Pain in right shoulderPain of left shoulder region 9 Daniel Garduno [address] [place] [address], [facility], [place]. tel: [phone] OFFICE/OUTPA TIENT VISIT, [facility], [address] [place] [address], [facility], tel: [phone] [facility] PAIN (chief complaint) Pain of left scapulaPain of left shoulder region 9 Daniel Encinas. [address] [place] [address], [facility], . tel: [phone] OFFICE/OUTPA TIENT VISIT, [facility], [address] [place] [address], [facility], tel: [phone] [facility] PAIN MANAGEMENT (chief complaint) Pain in right wrist 8 Daniel Encinas. [address] [place] [address], [facility], . tel: [phone] OFFICE/OUTPA TIENT VISIT, [facility], [address] [place] [address], [facility], tel: [phone] [place] arm pain (chief complaint) Pain in right hand 8 Debra Georgina. [address] [place] [address], [facility], . tel: [phone] Family History Family Member Type Diagnosis Age At Onset Maternal grandmother Problem (finding) alzheimer's dis ease Mother Problem (finding) depression Paternal grandfather Problem (finding) coronary arteri osclerosis Immunizations Vaccine Date Status Comments Flulaval quadrivalent administered Source: New Immuniza tion Record Tdap administered Source: New Imm unization Record Payers Payer name Insurance type Covered republican ID Authoriza tion(s) No Information Social History [...] Evaluate and treat ordered Referral Referred To: TYALER BARRIOS [address] [place], [place], [id number] [phone] Ordered: Referrals: Allopathic & Osteopathic Physicians : Plastic Surgery. TAYLER BARRIOS. Evaluate and treat Appointment date/timeframe: 07/11/2022 ordered Referral Ordered: X-RAY EXAM OF WRIST Left ordered Referral Ordered: X-RAY EXAM OF HAND Left ordered Referral Ordered: Gastroenterology (related to Odynophagia) ordered Referral Ordered: Referrals: Gastroenterology. Evaluate and treat ordered Referral Ordered: X-RAY EXAM CHEST 2 VIEWS ordered Referral Referred To: CAMRYN RAHMAN [address] [place] [address] [phone] Ordered: Referrals: Allopathic & Osteopathic Physicians : Orthopaedic Surgery. CAMRYN RAHMAN. Evaluate and treat Appointment date/timeframe: 03/10/2020 ordered Referral Ordered: Referrals: Dermatology. Location: [place]. Evaluate and treat ordered Referral Ordered: X-RAY EXAM OF L-S 2 OR 3 VIEWS ordered Referral Referred To: Physical Therapy Ordered: Referrals: Physical Therapy. Location: [facility]. Evaluate and treat ordered Referral Ordered: [...] Order: Lab Order DRUG SCR [employer]ANN EMPLOYEE ([id number]), Sent on: Sent History Of Present Illness [...] unfortunately. She is reminded to see her DRUM CLEANER for a pap smear and IUD removal [...] female patient presents today to [facility] care. Previously patient saw Ce Sanchez [...] currently on Zoloft. Labs will be ordered. DRUM CLEANER referral (comments) Patient is requesting a DRUM CLEANER referral today. Patient's last pap smear was 13 years ago and she has had her Mirena IUD in place since that time. Patient is aware that her IUD should have been removed and replaced years ago. She is concerned that the process may be painful. She is not having any menstrual cycles. DRUM CLEANER referral est care anxiety FLU SHOT PT [...] sore. She would like referral to a semiconductor wafer inspector or plastic surgeon to have it removed. [...] like a referral to Dr. Rahman in [place] and would like all testing to be completed with him, REFERRAL KNEE Pt presents requ esting referral to ortho. Pt states she is having continuous right knee pain. Pt would like to see Dr Rahman in [place]. Pt will need a work note for [...] screen: Not applicableMedication Use Agreement signed: 10/01/2018[place] [employer] checked per EHR. No concerns noted. MED [...] help with anxiety attacks. Go to your DRUM CLEANER appt for pap and IUD removal/ insertion. Have labs completed. Related to Dysthymic disorder Observe for worsenin g signs and symptoms Related to Cyst of skin Encouraged coping activities Rel ated to Depression Encouraged counseling Related to Depression If you develop suici andressa [...] symptoms go to ER. Related to Odynophagia [place] GERD diet as discussed Rel ated to Odynophagia No smoking or alcohol. No NSAIDs Related to Odynophagia Omeprazole 20mg daily Related to Odynophagia Soft foods. Small bi jama. Chew foods thoroughly. Related to Odynophagia Rest, elevation, cold pack Relat ed to Pain in left knee Observe for worsening s/s Relate d to Pain in left knee Take NSAIDS as direc tino, observe for side effect Related to Pain in left knee Cover cough, [...] Related to Acute upper respiratory infection, unspecified Do not share, sell, loan or otherwise distribute your medication to others Related to Pain in right shoulder Medication managemen t discussed (benefit, risk, side effects) Related to Pain in right shoulder Medications as instructed Relate d to Pain of left shoulder region Do not share, sell, loan or otherwise distribute your medication to others Related to Pain of left shoulder region Medication managemen t discussed (benefit, risk, side effects) Related to Pain of left shoulder region Use medication as instructed Rel ated to [...] others Related to Pain in right shoulder Medications as discussed Related to Pain of left scapula Pain contract completed today. R elated to Pain of left scapula Do not share or sell your medica tions Related to Pain of left scapula If x-ray is negative consider MR I Related to Pain of left scapula Rest, elevation, Related to Pain in right wrist Observe for worsening s/s Relate d to Pain in right wrist Mullens as prescribed Related to P ain in right wrist F/u with surgeon as scheduled Re lated to Pain in right wrist Follow up as scheduled with orth opedic Related to Pain in right hand Follow up with primary Related t o Pain in right hand Assessments Type Assessment Date No Information Patient Care Teams Name Effective Dates (start - stop) Status Members No Information
--- OUTSIDE RECORDS SUMMARY | 2024-10-08 08:19 | XMS_ITS ---
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 SICK VISIT with FLORY KAPADIAP-C 05/18/2017 Last Documented On 7 10:02AM ; [facility] Ordered patient to call if altagracia michael develops MED CHECK with ASHLEY STEWART PA-C 08/15/2016 Last Documented On 7 2:11PM ; [facility] Ordered return to the clinic if condition worsens or new symptoms arise MED CHECK with ASHLEY ZUNIGA-Juliana 08/15/2016 Last Documented On 7 2:11PM ; [facility] Ordered follow-up visit MED CHECK with MICHELL Meyers ACOSTA OVERCOILER-C 05/16/2016 Last Documented On 6 2:53PM ; [facility] Ordered follow-up visit in 3 months MED CHECK with ARPAN MANNAVE HNP-BC OVERCOILER-BC 02/14/2016 Last Documented On 6 11:32AM ; [facility] Ordered return to the clinic if condition worsens or new symptoms arise MED CHECK with ARPAN Arlette MANNCORINNE HNP-BC OVERCOILER-BC 02/14/2016 Last Documented On 6 11:32AM ; [facility] Ordered follow-up visit in 6 weeks 2 MONTH CHECK with LEON ZUNIGA-Juliana 11/03/2015 Last Documented On 6 12:16PM ; [facility] Ordered return to the clinic if condition worsens or new symptoms arise 2 MONTH CHECK with LEON ZUNIGA-C 11/03/2015 Last Documented On 6 12:16PM ; [facility] Ordered patient will call r appointment as needed SICK VISIT with LEON ZUNIGA-C 09/28/2015 Last Documented On 6 2:04PM ; [facility] Ordered return to the clinic if condition worsens or new symptoms arise SICK VISIT with LEON ZUNIGA-C 09/28/2015 Last Documented On 6 2:04PM ; [facility] Ordered follow-up visit in 6 weeks GENER AL OFFICE VISIT with LEON ZUNIGA-C 09/21/2015 Last Documented On 6 8:55AM ; [facility] Ordered return to the clinic if condition worsens or new symptoms arise GENERAL OFFICE VISIT with LEON ZUNIGA-C 09/21/2015 Last Documented On 6 8:55AM ; [facility] Ordered follow-up visit in 3 months MED CHECK wi th LEON ZUNIGA-C 06/25/2015 Last Documented On 5 12:12PM ; [facility] Ordered return to the clinic if condition worsens or new symptoms arise MED CHECK with LEON ZUNIGA-C 06/25/2015 Last Documented On 5 12:12PM ; [facility] Ordered follow-up visit in 3 months GENE RAL OFFICE VISIT with LEON ZUNIGA-C 04/01/2015 Last Documented On 5 9:35AM ; [facility] Ordered return to the clinic if condition worsens or new symptoms arise GENERAL OFFICE VISIT with LEON MANCERA PA-C 04/01/2015 Last Documented On 5 9:35AM ; [facility] Ordered follow-up visit in 3 months GENE RAL OFFICE VISIT with LEON ZUNIGA-C 12/01/2014 Last Documented On 5 1:57PM ; [facility] Ordered return to the clinic if condition worsens or new symptoms arise GENERAL OFFICE VISIT with LEON MANCERA PA-C 12/01/2014 Last Documented On 5 1:57PM ; [facility] Ordered patient will call fo r appointment as needed WELL WOMAN EXAM with LEON ZUNIGA-C 08/19/2014 Last Documented On 5 9:03AM ; [facility] Ordered return to the clinic if condition worsens or new symptoms arise WELL WOMAN EXAM with LEON MANCERA PA-C 08/19/2014 Last Documented On 5 9:03AM ; [facility] Ordered patient will call fo r appointment as needed SICK VISIT with LEON MANCERA PA-C 10/20/2013 Last Documented On 4 12:01PM ; [facility] Ordered return to the clinic if condition worsens or new symptoms arise SICK VISIT with LEON MANCERA PA-C 10/20/2013 Last Documented On 4 12:01PM ; [facility] do cervical spine x-ray OMT with JANIYA RICHARDS DO 06/17/2013 Last Documented On 3 9:59PM ; [facility] Ordered an X-ray OMT with JANIYA RICHARDS DO Last Documented On 3 9:59PM ; [facility] Ordered vascular smooth muscle relaxants OMT wit h JANIYA RICHARDS DO 06/17/2013 Last Documented On 3 9:59PM ; [facility] Ordered Clinical summary pro vided to patient OMT with VICKI Reid.OYue 05/21/2013 Last Documented On 3 2:31PM ; [facility] Ordered follow-up visit : as needed basis OMT wi th VICKI Reid.O. 05/21/2013 Last Documented On 3 2:31PM ; [facility] Ordered Clinical summary pro vided to patient HOSPITAL FOLLOW UP EXAM with VICKI Reid.O. 04/15/2013 Last Documented On 3 8:02AM ; [facility] Ordered follow-up visit : af ter the C&S results are available for review, and sooner, prn HOSPITAL FOLLOW UP EXAM with VICKI Reid.Giovanni. 04/15/2013 Last Documented On 3 8:02AM ; [facility] Ordered Clinical summary pro vided to patient OMT with VICKI Reid.O. 04/03/2013 Last Documented On 3 9:14AM ; [facility] Ordered follow-up visit : as needed basis OMT wi th VICKI Reid.O. 04/03/2013 Last Documented On 3 9:14AM ; [facility] Ordered Clinical summary pro vided to patient OMT with VICKI Reid.O. 03/03/2013 Last Documented On 3 7:39AM ; [facility] Ordered follow-up visit : as needed basis OMT wi th VICKI Reid.O. 03/03/2013 Last Documented On 3 7:39AM ; [facility] Ordered Clinical summary pro vided to patient OMT with VICKI Reid.O. 01/10/2013 Last Documented On 3 1:15PM ; [facility] Ordered follow-up visit : as needed basis OMT wi th VICKI Reid.O. 01/10/2013 Last Documented On 3 1:15PM ; [facility] Ordered Clinical summary pro vided to patient SICK VISIT with VICKI Reid.O. 12/05/2012 Last Documented On 3 11:37AM ; [facility] Ordered follow-up visit : as needed basis SICK VISIT with VICKI Reid.O. 12/05/2012 Last Documented On 3 11:37AM ; [facility] Ordered Clinical summary pro vided to patient OMT with VICKI JOINER D.O. 10/16/2012 Last Documented On 3 7:15AM ; [facility] Ordered follow-up visit : as needed basis OMT wi th VICKI JOINER D.O. 10/16/2012 Last Documented On 3 7:15AM ; [facility] Ordered Clinical summary pro vided to patient OMT with VICKI Reid.O. 07/09/2012 Last Documented On 2 1:18PM ; [facility] Ordered follow-up visit : as needed basis OMT wi VICKI Reid.O. 07/09/2012 Last Documented On 2 1:18PM ; [facility] Ordered follow-up visit : as needed basis OMT wi VICKI JOINER D.O. 03/28/2012 Last Documented On 2 7:53AM ; [facility] Ordered follow-up visit : as needed basis OMT wi VICKI JOINER D.O. 03/06/2012 Last Documented On 2 7:20AM ; [facility] Ordered follow-up visit : 1 month, to assess her response to the venlafaxine GENERAL OFFICE VISIT with VICKI Reid.Giovanni. 02/20/2012 Last Documented On 2 11:25PM ; [facility] Ordered follow-up visit : if not better with this treatment plan, and sooner, prn OMT with VICKI Reid.O. 12/07/2011 Last Documented On 2 10:51PM ; [facility] Referrals To Diagnosis Orthopedic OLENA LOPEZ MD Pain in left kne e Last Documented On 7 10:18AM ; [facility] Advice Clerk FARIHA NICHOLS MD - [facility] - [address] [place] [address] - Encounter for contraceptive management, unspecified Note: Needs mirena removed a nd replaced. It has been 8 years. Prefers appt in [place]. 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 [facility] [employer] [facility] - [address] Room 1100 [phone] - Idiopathic aseptic necrosis of unspecified bone Last Documented On 7 8:24AM ; [facility] Oncology/Hematology SERGEY Tse [facility] - [address] [place] [id number] - Idiopathic aseptic necrosis of unspecified bone Last Documented On 7 1:11PM ; [facility] Instructions to patient Instructions for patient Last Documented On 6 8:55AM ; [facility] Go to the emergency room if condition worsens Last Documented On 6 9:06AM ; [facility] Instructions for patient Last Documented On 6 1:58PM ; [facility] Instructions for patient Last Documented On 6 8:41AM ; [facility] Go to the emergency room if condition worsens Last Documented On 6 8:48AM ; [facility] Instructions for patient Last Documented On 5 10:51AM ; [facility] Instructions for patient Last Documented On 5 8:46AM ; [facility] Instructions for patient Last Documented On 5 1:36PM ; [facility] Instructions for patient Last Documented On 5 8:23AM ; [facility] Instructions for patient Last Documented On 4 10:32AM ; [facility] Return to the clinic if cond ition worsens or new symptoms arise Last Documented On 3 1:31PM ; [facility] Go to the emergency room if condition worsens Last Documented On 3 1:31PM ; [facility] Watch for signs/symptoms of infection, return to the clinic if seen Last Documented On 3 3:02PM ; [facility] Education and Decision Aids were provided during visit for: Education and counseling Pavan l office if condition worsens or new symptoms arise. ~ ~Call office with any questions or concerns as needed. ~ ~Patient verbalized understanding of all instructions Last Documented On 7 10:01AM ; [facility] Education and counseling Last Documented On 6 1:58PM ; [facility] Assessments Includes: Assessments for all patient encounters Findings Encounter Date Acute sinusitis SICK VISIT with FLORY FERNANDO FN P-C 05/18/2017 Last Documented On 7 10:02AM ; [facility] Arthralgia of the left knee/patella/tibia/fibula MED CHECK with FLORYDREA FERNANDO OVERCOILER-C 11/14/2016 Last Documented On 7 10:05AM ; [facility] Arthralgias in multiple sites MED CHECK with SONA FERNANDO OVERCOILER-C 11/14/2016 Last Documented On 7 10:05AM ; [facility] Chronic reflux esophagitis MED CHECK with FLORYDREA FERNANDO OVERCOILER-C 11/14/2016 Last Documented On 7 10:05AM ; [facility] Depression with anxiety MED CHECK with FLORYDREA WOLFE OVERCOILER-C 11/14/2016 Last Documented On 7 10:05AM ; [facility] Vitamin B12 deficiency MED CHECK with FLORYDREA GREENWOOD MEME OVERCOILER-C 11/14/2016 Last Documented On 7 10:05AM ; [facility] Arthralgia of the left knee/patella/tibia/fibula MED CHECK with ASHLEY ZUNIGA-Juliana 08/15/2016 Last Documented On 7 2:11PM ; [facility] 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 MED CHECK wit h ASHLEY ZUNIGA-C 08/15/2016 Last Documented On 7 2:11PM ; [facility] Herpes simplex * PHONE CALL with ASHLEY LEY PA-C 07/07/2016 Last Documented On 6 12:08PM ; [facility] Arthralgia of the left knee/patella/tibia/fibula MED CHECK with MICHELL TOLENTINOELLO OVERCOILER-C 05/16/2016 Last Documented On 6 2:53PM ; [facility] Arthralgias in multiple sites MED CHECK with YASMIN ACOSTA OVERCOILER-C 05/16/2016 Last Documented On 6 2:53PM ; [facility] Arthralgia of the left knee/patella/tibia/fibula MED CHECK with ARPAN SUN PMHNP-BC OVERCOILER-BC 02/14/2016 Last Documented On 6 11:32AM ; [facility] Depression with anxiety 2 MONTH CHECK with BRITTANY VARGHESERIS PA-C 11/03/2015 Last Documented On 6 12:16PM ; [facility] Influenza type A SICK VISIT with LEON MANCERA PA-C 09/28/2015 Last Documented On 6 2:04PM ; [facility] Arthralgias in multiple sites GENERAL OF FICE VISIT with LEON VARGHESERIS PA-C 09/21/2015 Last Documented On 6 8:55AM ; [facility] Depression with anxiety GENERAL OFFICE VISIT wit h LEON VARGHESERIS PA-C 09/21/2015 Last Documented On 6 8:55AM ; [facility] Arthralgia of the left knee/patella/tibia/fibula MED CHECK with LEON VARGHESERIS PA-C 06/25/2015 Last Documented On 5 12:12PM ; [facility] Arthralgias in multiple sites MED CHECK with JUAN VARGHESERIS PA-C 06/25/2015 Last Documented On 5 12:12PM ; [facility] Arthralgia of the left knee/patella/tibia/fibula GENERAL OFFICE VISIT with LEON VARGHESERIS PA-C 04/01/2015 Last Documented On 5 9:35AM ; [facility] Arthralgias in multiple sites GENERAL OF FICE VISIT with LEON VARGHESERIS PA-C 04/01/2015 Last Documented On 5 9:35AM ; [facility] Chronic reflux esophagitis GENERAL OFFICE VISIT with LEON VARGHESERIS PA-C 04/01/2015 Last Documented On 5 9:35AM ; [facility] Depression with anxiety GENERAL OFFICE VISIT wit h LEON MANCERA PA-C 04/01/2015 Last Documented On 5 9:35AM ; [facility] Vitamin B12 deficiency GENERAL OFFICE VISIT with LEON MANCERA PA-C 04/01/2015 Last Documented On 5 9:35AM ; [facility] Arthralgia of the left knee/patella/tibia/fibula GENERAL OFFICE VISIT with LEON MANCERA PA-C 12/01/2014 Last Documented On 5 1:57PM ; [facility] Arthralgias in multiple sites [facility] 12/01/2014 Last Documented On 5 1:57PM ; [facility] Depression with anxiety GENERAL OFFICE VISIT wit h LEON MANCERA PA-C 12/01/2014 Last Documented On 5 1:57PM ; [facility] Vitamin B12 deficiency GENERAL OFFICE VISIT with LEON MANCERA PA-C 12/01/2014 Last Documented On 5 1:57PM ; [facility] Bacterial vaginosis WELL WOMAN EXAM with LEON MANCERA PA-C 08/19/2014 Last Documented On 5 9:03AM ; [facility] Routine gynecological exam w ith cervical pap smear WELL WOMAN EXAM with LEON MANCERA PA-C 08/19/2014 Last Documented On 5 9:03AM ; [facility] Urinary tract infection WELL WOMAN EXAM with JUAN MANCERA PA-C 08/19/2014 Last Documented On 5 9:03AM ; [facility] Vitamin B12 deficiency WELL WOMAN EXAM with TABITHA MANCERA PA-C 08/19/2014 Last Documented On 5 9:03AM ; [facility] Cerumen impaction SICK VISIT with LEON Dillon PA-C 10/20/2013 Last Documented On 4 12:01PM ; [facility] Pharyngitis, Strep SICK VISIT with LEON SAVAGE PA-C 10/20/2013 Last Documented On 4 12:01PM ; [facility] Arthralgias in multiple sites OMT with JANIYA SOLIZ DO 06/17/2013 Last Documented On 3 9:59PM ; [facility] Myalgia and myositis OMT with JANIYA RICHARDS DO 06/17/2013 Last Documented On 3 9:59PM ; [facility] Osteopathic lesions of the cervical region OMT w ith JANIYA RICHARDS DO 06/17/2013 Last Documented On 3 9:59PM ; [facility] Osteopathic lesions of the rib cage OMT with ASHLEIGH RICHARDS DO 06/17/2013 Last Documented On 3 9:59PM ; [facility] Depression with anxiety OMT with VICKI Dillon D.OYue 05/21/2013 Last Documented On 3 2:31PM ; [facility] Lumbar strain OMT with VICKI Reid.O. 1 Last Documented On 3 2:31PM ; [facility] Neck strain OMT with VICKI Reid.O. 1 Last Documented On 3 2:31PM ; [facility] Obesity OMT with VICKI Reid.O. 1 Last Documented On 3 2:31PM ; [facility] Persistent insomnia OMT with VICKI Reid. O. 05/21/2013 Last Documented On 3 2:31PM ; [facility] Somatic dysfunction of cervical region OMT with VICKI Reid.OYue 05/21/2013 Last Documented On 3 2:31PM ; [facility] Somatic dysfunction of lumbar region OMT with RA GUERA Reid.OYue 05/21/2013 Last Documented On 3 2:31PM ; [facility] Somatic dysfunction of thoracic region OMT with VICKI JOINER D.OYue 05/21/2013 Last Documented On 3 2:31PM ; [facility] Thoracic strain OMT with VICKI Reid.O. 1 Last Documented On 3 2:31PM ; [facility] Cephalgia, headache HOSPITAL FOLLOW UP EXAM with VICKI Reid.O. 04/15/2013 Last Documented On 3 8:02AM ; [facility] Depression with anxiety HOSPITAL FOLLOW UP EXAM with VICKI Reid.O. 04/15/2013 Last Documented On 3 8:02AM ; [facility] Lumbar strain HOSPITAL FOLLOW UP EXAM with ROBINSON JOINER D.O. 04/15/2013 Last Documented On 3 8:02AM ; [facility] Neck strain HOSPITAL FOLLOW UP EXAM with ROBINSON JOINER D.O. 04/15/2013 Last Documented On 3 8:02AM ; [facility] Obesity HOSPITAL FOLLOW UP EXAM with ROBINSON JOINER D.O. 04/15/2013 Last Documented On 3 8:02AM ; [facility] Persistent insomnia HOSPITAL FOLLOW UP EXAM with VICKI Reid.O. 04/15/2013 Last Documented On 3 8:02AM ; [facility] Somatic dysfunction of cervical region H OSPITAL FOLLOW UP EXAM with VICKI Reid.O. 04/15/2013 Last Documented On 3 8:02AM ; [facility] Somatic dysfunction of lumbar region HOS PITAL FOLLOW UP EXAM with VICKI Reid.O. 04/15/2013 Last Documented On 3 8:02AM ; [facility] Somatic dysfunction of thoracic region H OSPITAL FOLLOW UP EXAM with VICKI Reid.O. 04/15/2013 Last Documented On 3 8:02AM ; [facility] Thoracic strain HOSPITAL FOLLOW UP EXAM with ROBINSON JOINER D.O. 04/15/2013 Last Documented On 3 8:02AM ; [facility] Depression with anxiety OMT with VICKI Dillon D.O. 04/03/2013 Last Documented On 3 9:14AM ; [facility] Neck strain OMT with VICKI A VOIGTS D.O. 0 04/03/2013 Last Documented On 3 9:14AM ; [facility] Obesity OMT with VICKI A VOIGTS D.O. 0 04/03/2013 Last Documented On 3 9:14AM ; [facility] Persistent insomnia OMT with VICKI A VOIGTS D. O. 04/03/2013 Last Documented On 3 9:14AM ; [facility] Somatic dysfunction of cervical region OMT with VICKI A CARLOSIGTS D.O. 04/03/2013 Last Documented On 3 9:14AM ; [facility] Somatic dysfunction of thoracic region OMT with VICKI A CARLOSIGTS D.O. 04/03/2013 Last Documented On 3 9:14AM ; [facility] Thoracic strain OMT with VICKI A CRALOSIGTS D.O. 0 04/03/2013 Last Documented On 3 9:14AM ; [facility] Depression with anxiety OMT with VICKI A BRICE S D.O. 03/03/2013 Last Documented On 3 7:39AM ; [facility] Neck strain OMT with VICKI A ARNULFOTS D.O. 0 03/03/2013 Last Documented On 3 7:39AM ; [facility] Obesity OMT with VCIKI A ARNULFOTS D.O. 0 03/03/2013 Last Documented On 3 7:39AM ; [facility] Persistent insomnia OMT with VICKI A ARNULFOTS D. O. 03/03/2013 Last Documented On 3 7:39AM ; [facility] Somatic dysfunction of cervical region OMT with VICKI A VOIGTS D.O. 03/03/2013 Last Documented On 3 7:39AM ; [facility] Somatic dysfunction of thoracic region OMT with VICKI A VOIGTS D.O. 03/03/2013 Last Documented On 3 7:39AM ; [facility] Thoracic strain OMT with VICKI A CARLOSIGTS D.O. 0 03/03/2013 Last Documented On 3 7:39AM ; [facility] Chronic reflux esophagitis INJECTION with LEON MANCERA PA-C 02/24/2013 Last Documented On 3 1:02PM ; [facility] Vitamin B12 deficiency INJECTION with LEON NICOLAS PA-C 02/24/2013 Last Documented On 3 1:02PM ; [facility] Bronchitis SICK VISIT with LEON MANCERA PA-C 01/16/2013 Last Documented On 3 1:47PM ; [facility] Depression with anxiety OMT with VICKI NARVAEZ S D.O. 01/10/2013 Last Documented On 3 1:15PM ; [facility] Lumbar strain OMT with VICKI JOINER D.O. 0 01/10/2013 Last Documented On 3 1:15PM ; [facility] Neck strain OMT with VICKI JOINER D.O. 0 01/10/2013 Last Documented On 3 1:15PM ; [facility] Obesity OMT with VICKI JOINER D.O. 0 01/10/2013 Last Documented On 3 1:15PM ; [facility] Persistent insomnia OMT with VICKI JOINER D. O. 01/10/2013 Last Documented On 3 1:15PM ; [facility] Somatic dysfunction of cervical region OMT with VICKI JOINER D.O. 01/10/2013 Last Documented On 3 1:15PM ; [facility] Somatic dysfunction of lumbar region OMT with RA GUERA JOINER D.O. 01/10/2013 Last Documented On 3 1:15PM ; [facility] Somatic dysfunction of thoracic region OMT with VICKI JOINER D.O. 01/10/2013 Last Documented On 3 1:15PM ; [facility] Thoracic strain OMT with VICKI JOINER D.O. 0 01/10/2013 Last Documented On 3 1:15PM ; [facility] Urinary tract infection OMT with VICKI NARVAEZ S D.O. 01/10/2013 Last Documented On 3 1:15PM ; [facility] Arthralgia of the left knee/patella/tibia/fibula SICK VISIT with VICKILORIN JOINER D.O. 12/05/2012 Last Documented On 3 11:37AM ; [facility] Depression with anxiety SICK VISIT with VICKILORIN JOINER D.O. 12/05/2012 Last Documented On 3 11:37AM ; [facility] Neck strain SICK VISIT with VICKILORIN JOINER D.O. 12/05/2012 Last Documented On 3 11:37AM ; [facility] Obesity SICK VISIT with VICKILORIN JOINER D.O. 12/05/2012 Last Documented On 3 11:37AM ; [facility] Persistent insomnia SICK VISIT with VICKILORIN PEDERSONS D.O. 12/05/2012 Last Documented On 3 11:37AM ; [facility] Somatic dysfunction of cervical region S ICK VISIT with VICKILORIN JOINER D.O. 12/05/2012 Last Documented On 3 11:37AM ; [facility] Somatic dysfunction of thoracic region S ICK VISIT with VICKILORIN JOINER D.O. 12/05/2012 Last Documented On 3 11:37AM ; [facility] Thoracic strain SICK VISIT with VICKILORIN JOINER D.O. 12/05/2012 Last Documented On 3 11:37AM ; [facility] Depression with anxiety OMT with VICKI NARVAEZ S D.O. 10/16/2012 Last Documented On 3 7:15AM ; [facility] Lumbar strain OMT with VICKILORIN JOINER D.O. 0 10/16/2012 Last Documented On 3 7:15AM ; [facility] Neck strain OMT with VICKILORIN JOINER D.O. 0 10/16/2012 Last Documented On 3 7:15AM ; [facility] Obesity OMT with VICKILORIN JOINER D.O. 0 10/16/2012 Last Documented On 3 7:15AM ; [facility] Persistent insomnia OMT with VICKI JOINER D. O. 10/16/2012 Last Documented On 3 7:15AM ; [facility] Somatic dysfunction of cervical region OMT with VICKI Reid.O. 10/16/2012 Last Documented On 3 7:15AM ; [facility] Somatic dysfunction of lumbar region OMT with RA GUERA JOINER D.O. 10/16/2012 Last Documented On 3 7:15AM ; [facility] Somatic dysfunction of thoracic region OMT with VICKI JOINER D.O. 10/16/2012 Last Documented On 3 7:15AM ; [facility] Thoracic strain OMT with VICKI JOINER D.O. 0 10/16/2012 Last Documented On 3 7:15AM ; [facility] Eustachian tube dysfunction SICK VISIT with TONYA GEORGE OVERCOILER-C 09/03/2012 Last Documented On 3 3:05PM ; [facility] Onychomycosis of the left 1st toenail OF FICE SURGERY with GHULAM GEORGE OVERCOILER-C 08/01/2012 Last Documented On 3 2:32PM ; [facility] Lumbar strain OMT with VICKI JOINER D.O. 1 09/09/2011 Last Documented On 2 1:18PM ; [facility] Neck strain OMT with VICKI JOINER D.O. 1 09/09/2011 Last Documented On 2 1:18PM ; [facility] Sacroiliac region strain OMT with VICKI CORREA D.O. 07/09/2012 Last Documented On 2 1:18PM ; [facility] Somatic dysfunction of cervical region OMT with VICKI Reid.O. 07/09/2012 Last Documented On 2 1:18PM ; [facility] Somatic dysfunction of lumbar region OMT with RA GUERA JOINER D.O. 07/09/2012 Last Documented On 2 1:18PM ; [facility] Somatic dysfunction of sacroiliac region OMT wit h VICKI JOINER D.O. 07/09/2012 Last Documented On 2 1:18PM ; [facility] Somatic dysfunction of thoracic region OMT with VICKI JOINER D.O. 07/09/2012 Last Documented On 2 1:18PM ; [facility] Thoracic strain OMT with VICKI JOINER D.O. 1 09/09/2011 Last Documented On 2 1:18PM ; [facility] Cervicalgia SICK VISIT with LEON MANCERA PA-C 06/03/2012 Last Documented On 2 10:23AM ; [facility] Common cold SICK VISIT with LEON MANCERA PA-C 06/03/2012 Last Documented On 2 10:23AM ; [facility] Neck strain OMT with VICKI JOINER D.O. 0 03/28/2012 Last Documented On 2 7:53AM ; [facility] Somatic dysfunction of cervical region OMT with VICKI JOINER D.O. 03/28/2012 Last Documented On 2 7:53AM ; [facility] Somatic dysfunction of thoracic region OMT with IVCKI JOINER D.O. 03/28/2012 Last Documented On 2 7:53AM ; [facility] Sprained medial collateral l igament of the left knee OMT with VICKI JOINER D.O. 03/28/2012 Last Documented On 2 7:53AM ; [facility] Thoracic strain OMT with VICKI JOINER D.O. 0 03/28/2012 Last Documented On 2 7:53AM ; [facility] Depression with anxiety OMT with VICKI NARVAEZ S D.O. 03/06/2012 Last Documented On 2 7:20AM ; [facility] Esophageal reflux OMT with VICKI JOINER D.O. 03/06/2012 Last Documented On 2 7:20AM ; [facility] Lumbar strain OMT with VICKI JOINER D.O. 0 03/06/2012 Last Documented On 2 7:20AM ; [facility] Neck strain OMT with VICKI JOINER D.O. 0 03/06/2012 Last Documented On 2 7:20AM ; [facility] Obesity OMT with VICKI JOINER D.O. 0 03/06/2012 Last Documented On 2 7:20AM ; [facility] Persistent insomnia OMT with VICKI JOINER D. O. 03/06/2012 Last Documented On 2 7:20AM ; [facility] Somatic dysfunction of cervical region OMT with VICKI JOINER D.O. 03/06/2012 Last Documented On 2 7:20AM ; [facility] Somatic dysfunction of lumbar region OMT with RA GUERA JOINER D.O. 03/06/2012 Last Documented On 2 7:20AM ; [facility] Somatic dysfunction of thoracic region OMT with VICKI JOINER D.O. 03/06/2012 Last Documented On 2 7:20AM ; [facility] Thoracic strain OMT with VICKI JOINER D.O. 0 03/06/2012 Last Documented On 2 7:20AM ; [facility] Vitamin B12 deficiency OMT with VICKI JOINER D.O. 03/06/2012 Last Documented On 2 7:20AM ; [facility] Depression with anxiety GENERAL OFFICE VISIT wit h VICKI JOINER D.O. 02/20/2012 Last Documented On 2 11:25PM ; [facility] Esophageal reflux GENERAL OFFICE VISIT with KATIE JOINER D.O. 02/20/2012 Last Documented On 2 11:25PM ; [facility] Obesity GENERAL OFFICE VISIT with KAY Reid.O. 02/20/2012 Last Documented On 2 11:25PM ; [facility] Onychomycosis of the left 1st toenail GE NERAL OFFICE VISIT with VICKI JOINER D.O. 02/20/2012 Last Documented On 2 11:25PM ; [facility] Persistent insomnia GENERAL OFFICE VISIT with RA GUERA Reid.O. 02/20/2012 Last Documented On 2 11:25PM ; [facility] Vitamin B12 deficiency GENERAL OFFICE VISIT with VICKI Reid.O. 02/20/2012 Last Documented On 2 11:25PM ; [facility] Normal pre-employment screening examination LAB with VICKI Reid.O. 02/07/2012 Last Documented On 2 1:21PM ; [facility] Vitamin B12 deficiency * PHONE CALL with VICKI Reid.O. 01/18/2012 Last Documented On 2 5:13PM ; [facility] Depression with anxiety OMT with VICKI Dillon D.O. 12/07/2011 Last Documented On 2 10:51PM ; [facility] Esophageal reflux OMT with VICKI Reid.O. 12/07/2011 Last Documented On 2 10:51PM ; [facility] Lumbar strain OMT with VICKI JOINER D.O. 0 12/07/2011 Last Documented On 2 10:51PM ; [facility] Neck strain OMT with VICKI JOINER D.O. 0 12/07/2011 Last Documented On 2 10:51PM ; [facility] Obesity OMT with VICKI JOINER D.O. 0 12/07/2011 Last Documented On 2 10:51PM ; [facility] Persistent insomnia OMT with VICKI JOINER D. O. 12/07/2011 Last Documented On 2 10:51PM ; [facility] Somatic dysfunction of cervical region OMT with VICKI Reid.O. 12/07/2011 Last Documented On 2 10:51PM ; [facility] Somatic dysfunction of lumbar region OMT with RA GUERA JOINER D.O. 12/07/2011 Last Documented On 2 10:51PM ; [facility] Somatic dysfunction of thoracic region OMT with VICKI JOINER D.O. 12/07/2011 Last Documented On 2 10:51PM ; [facility] Thoracic strain OMT with VICKI JOINER D.O. 0 12/07/2011 Last Documented On 2 10:51PM ; [facility] Vitamin B12 deficiency OMT with VICKI JOINER D.O. 12/07/2011 Last Documented On 2 10:51PM ; [facility] Instructions Includes: Instructions for all patient encounters Instructions to patient Instructions for patient Last Documented On 6 8:55AM ; [facility] Go to the emergency room if condition worsens Last Documented On 6 9:06AM ; [facility] Instructions for patient Last Documented On 6 1:58PM ; [facility] Instructions for patient Last Documented On 6 8:41AM ; [facility] Go to the emergency room if condition worsens Last Documented On 6 8:48AM ; [facility] Instructions for patient Last Documented On 5 10:51AM ; [facility] Instructions for patient Last Documented On 5 8:46AM ; [facility] Instructions for patient Last Documented On 5 1:36PM ; [facility] Instructions for patient Last Documented On 5 8:23AM ; [facility] Instructions for patient Last Documented On 4 10:32AM ; [facility] Return to the clinic if cond ition worsens or new symptoms arise Last Documented On 3 1:31PM ; [facility] Go to the emergency room if condition worsens Last Documented On 3 1:31PM ; [facility] Watch for signs/symptoms of infection, return to the clinic if seen Last Documented On 3 3:02PM ; [facility] Education and Decision Aids were provided during visit for: Education and counseling Pavan l office if condition worsens or new symptoms arise. ~ ~Call office with any questions or concerns as needed. ~ ~Patient verbalized understanding of all instructions Last Documented On 7 10:01AM ; [facility] Education and counseling Last Documented On 6 1:58PM ; [facility] Medical Equipment - Implanted Devices Includes: Current and historical Devices No Medical Equipment Recorded Medications Includes: Current and historical Medications Current Medications (continue as prescribed) Sertraline HCl 100MG Oral Tablet 07/24/2018 Provider : VICKI JOINER D.O. Diagnosis: Dysthymic disord er TAKE 2 TABLETS NIGHTLY DIRECTED Last Documented On 07/24/2018 4:34PM By MIGUELINA JOINER DO ; [facility] Cyanocobalamin 1000 MCG/ML IJ SOLN 08/19/2014 Provid er: LEON MANCERA PA-C Diagnosis: 1ML IM Q MONTH PLEASE DISPEN SE SYRINGES AND NEEDLES 27G X 5/8 IN Last Documented On 08/19/2014 8:21AM By KARINA HAYES ; [facility] BD Eclipse Syringe 25G X 5/8 3 ML MISC 02/10/2014 P rovider: LEON MANCERA PA-C Diagnosis: FOR B-12 Last Documented On 02/10/2014 5:04PM By LEON MANCERA PA-C ; [facility] Past Medications on file Sertraline HCl 100MG Oral Tablet 07/04/2017 - 07/24/2018 Provider: VICKI JOINER D.O. Diagnosis: Dysthymic disord er TWO TABLETS NIGHTLY, DIRECTED. Last Documented On 07/24/2018 4:22PM By MIGUELINA JOINER DO ; [facility] LevoFLOXacin 500MG Oral Tablet 05/18/2017 - 05/28/2017 [...] On 7 10:07AM By FLORY US ; [facility] Hydrocodone-Acetaminophen 7.5-325MG Oral Tablet 11/14/2016 - 11/14/2016 Provider: VICKI JOINER D.O. Diagnosis: Pain in unspecif ied joint 1 four times daily prn sever e pain. MAY FILL ON/AFTER 11-18-16 Last Documented On 11/14/2016 10:04AM By ASHLEY RODRÍGUEZ LPN ; [facility] Hydrocodone-Acetaminophen 7.5-325MG Oral Tablet 11/14/2016 - 05/18/2017 Provider: VICKI JOINER D.O. Diagnosis: Pain in unspecif ied joint 1 four times daily prn sever e pain. MAY FILL ON/AFTER 11-16-16 Last Documented On 05/18/2017 9:19AM By BECKY POLK LPN ; [facility] Hydrocodone-Acetaminophen 7.5-325MG Oral Tablet 10/13/2016 - 11/14/2016 Provider: VICKI JOINER D.O. Diagnosis: Pain in unspecif ied joint 1 four times daily prn sever e pain. MAY FILL ON/AFTER 10-19-16 Last Documented On 11/14/2016 9:56AM By MIGUELINA JOINER DO ; [facility] Doxycycline Monohydrate 100MG Oral Tablet 10/04/2016 - 10/14/2016 Provider: JOSIANE GIBBS PA-C Diagnosis: One tablet twice a day Last Documented On 7 1:35PM By JOSIANE ADAMS PA-C ; [facility] Hydrocodone-Acetaminophen 7.5-325MG Oral Tablet 09/18/2016 - 10/13/2016 Provider: MISAEL CRUZ PA-C Diagnosis: Pain in unspecif ied joint 1 four times daily prn sever e pain. FILL ON/AFTER 09-19-16 Last Documented On 10/13/2016 10:18AM By MIGUELINA JOINER DO ; [facility] Hydrocodone-Acetaminophen 7.5-325MG Oral Tablet 08/15/2016 - 09/18/2016 Provider: ASHLEY STEWART PA-C Diagnosis: Pain in unspecified joint 1 four times daily prn sever e pain. FILL ON/AFTER 08-19-16 Last Documented On 7 11:58AM By MISAEL CRUZ PA-C ; [facility] Hydrocodone-Acetaminophen 7.5-325 MG Tablet 07/20/2016 - 08/15/2016 Provider: ASHLEY STEWART PA-C Diagnosis: Pain in unspecified joint 1 four times daily prn severe pain. Last Documented On 08/15/2016 2:03PM By KARINA HAYES ; [facility] Valtrex 500 MG Tablet 07/07/2016 - 07/10/2016 Provider: ASHLEY STEWART PA-C Diagnosis: Herpesviral infe ction of urogenital system, unspecified One tablet twice a day Last Documented On 6 12:17PM By ASHLEY STEWART PA-C ; [facility] Hydrocodone-Acetaminophen 7. 5-325 MG Tablet 06/21/2016 - 07/20/2016 Provider: JOSIANE ADAMS PA-C Diagnosis: Pain in unspecified joint 1 four times daily prn severe pain. Last Documented On 6 8:31AM By ASLHEY STEWART PA-C ; [facility] Sertraline HCl 100 MG Tablet 06/13/2016 - 07/04/2017 Provider: VICKI JOINER D.O. Diagnosis: Dysthymic disord er Two tablets nightly, as directed. Last Documented On 07/04/2017 9:15AM By MIGUELINA JOINER DO ; [facility] Hydrocodone-Acetaminophen 7. 5-325 MG Tablet 05/16/2016 - 06/21/2016 Provider: VICKI JOINER D.O. Diagnosis: Pain in unspecif ied joint 1 four times daily prn sever e pain. May fill on or after 05-22-16 Last Documented On 6 8:40AM By JOSIANE ADAMS PA-C ; [facility] Hydrocodone-Acetaminophen 7. 5-325 MG Tablet 04/20/2016 - 05/16/2016 Provider: VICKI JOINER D.O. Diagnosis: Pain in unspecif ied joint 1 four times daily prn sever e pain. May fill on or after 04-22-16 Last Documented On 05/16/2016 11:10AM By MIGUELINA JOINER DO ; [facility] Hydrocodone-Acetaminophen 7. 5-325 MG Tablet 03/20/2016 - 04/20/2016 Provider: VICKI JOINER D.O. Diagnosis: Pain in unspecif ied joint 1 four times daily prn sever e pain. May fill on or after 03-23-16 Last Documented On 04/20/2016 12:58PM By MIGUELINA JOINER DO ; [facility] Hydrocodone-Acetaminophen 7. 5-325 MG Tablet 02/14/2016 - 03/20/2016 Provider: ARPAN SUN PMNICOLE- OVERCOILER- Diagnosis: Pain in unspecif ied joint 1 four times daily prn severe painFILL ON; 6 Last Documented On 03/20/2016 4:44PM By MIGUELINA JOINER DO ; [facility] Zoloft 100 MG Tablet 02/14/2016 - 08/15/2016 Provider: Diagnosis: Last Documented On 08/15/2016 1:54PM By KARINA HAYES ; [facility] Sertraline HCl 100 MG Tablet 01/28/2016 - 02/14/2016 Provider: VICKI JOINER D.O. Diagnosis: Dysthymic disord er 2 TABS NIGHTLY Last Documented On 02/14/2016 10:37AM By KARINA HAYES ; [facility] Cyanocobalamin 1000 MCG/ML Solution 01/28/2016 - 01/30/2016 Provider: VICKI JOINER D.O. Diagnosis: DIRECTED INTRAMUSCULARLY EVERY MONTH PLEASE DISPENSE SYRINGES AND NEEDLES 27GX 5/8 IN Last Documented On 01/28/2016 11:41AM By ASHLEY RODRÍGUEZ LPN ; [facility] Hydrocodone-Acetaminophen 7. 5-325 MG Tablet 01/18/2016 - 02/14/2016 Provider: LEON MANCERA PA-C Diagnosis: Pain in unspecif ied joint 1 four times daily prn sever e pain. due 01-24-16 MAY FILL 01-22-16 Last Documented On 6 10:49AM By ARPAN KAPADIAP- ; [facility] Hydrocodone-Acetaminophen 7. 5-325 MG Tablet 12/23/2015 - 01/18/2016 Provider: LEON MANCERA PA-C Diagnosis: Pain in unspecif ied joint 1 four times daily prn severe pain. due 12-25-15 Last Documented On 01/18/2016 4:50PM By LEON MANCERA PA-C ; [facility] Hydrocodone-Acetaminophen 7. 5-325 MG Tablet 11/23/2015 - 12/23/2015 Provider: LEON MANCERA PA-C Diagnosis: Pain in unspecif ied joint 1 four times daily prn severe pain. due 11-25-15 Last Documented On 6 12:09PM By LEON MANCERA PA-C ; [facility] Sertraline HCl 100 MG Tablet 11/03/2015 - 01/28/2016 Provider: LEON MANCERA PA-C Diagnosis: Dysthymic disord er 2 tabs nightly Last Documented On 01/28/2016 11:36AM By ASHLEY RODRÍGUEZ LPN ; [facility] Hydrocodone-Acetaminophen 7. 5-325 MG Tablet 10/22/2015 - 11/23/2015 Provider: LEON MANCERA PA-C Diagnosis: Pain in unspecif ied joint 1 four times daily prn severe pain. due 10-26-15 Last Documented On 6 12:20PM By LEON MANCERA PA-C ; [facility] Tamiflu 75 MG Capsule, conventional 09/28/2015 - 10/03/2015 Provider: LEON MANCERA PA-C Diagnosis: Flu due to ident novel influenza A virus w oth resp manifest 1 CAPSULE TWO TIMES A DAY Last Documented On 09/28/2015 2:14PM By LEON MANCERA PA-C ; [facility] Sertraline HCl 100 MG Tablet 09/21/2015 - 11/03/2015 Provider: LEON MANCERA PA-C Diagnosis: Dysthymic disord er 1/2 tab at bedtime x 4 night s then 1 tab nightly Last Documented On 11/03/2015 9:08AM By LEON MANCERA PA-C ; [facility] Hydrocodone-Acetaminophen 7. 5-325 MG Tablet 09/21/2015 - 10/22/2015 Provider: LEON MANCERA PA-C Diagnosis: Pain in unspecif ied joint 1 four times daily prn sever e pain. due 3-6-16 ok for 09-25-15 Last Documented On 6 12:16PM By LEON MANCERA PA-C ; [facility] Hydrocodone-Acetaminophen 7. 5-325 MG Tablet 08/27/2015 - 08/27/2015 Provider: LEON MANCERA PA-C Diagnosis: Pain in unspecif ied joint 1 four times daily prn severe pain. for 08-27-15 Last Documented On 08/27/2015 5:04PM By LEON MANCERA PA-C ; [facility] Hydrocodone-Acetaminophen 7. 5-325 MG Tablet 08/27/2015 - 09/21/2015 Provider: LEON MANCERA PA-C Diagnosis: Pain in unspecif ied joint 1 four times daily prn severe pain. for 08-27-15 Last Documented On 09/21/2015 8:53AM By LEON MANCERA PA-C ; [facility] Hydrocodone-Acetaminophen 7. 5-325 MG Tablet 07/26/2015 - 08/27/2015 Provider: LEON MANCERA PA-C Diagnosis: Pain in unspecif ied joint 1 four times daily prn severe pain. for 07-28-15 Last Documented On 08/27/2015 3:07PM By LEON MANCERA PA-C ; [facility] Zofran 4 MG Tablet 07/08/2015 - 07/11/2015 Provider: LEON MANCERA PA-C Diagnosis: 1 PO Q 8 H PRN NAUSEA Last Documented On 07/08/2015 3:33PM By LEON MANCERA PA-C ; [facility] Hydrocodone-Acetaminophen 7. 5-325 MG Tablet 06/24/2015 - 07/26/2015 Provider: LEON MANCERA PA-C Diagnosis: Pain in unspecif ied joint 1 four times daily prn severe pain. for 06-28-15 Last Documented On 07/26/2015 4:56PM By LEON MANCERA PA-C ; [facility] Hydrocodone-Acetaminophen 7. 5-325 MG Tablet 05/26/2015 - 06/24/2015 Provider: LEON MANCERA PA-C Diagnosis: Pain in unspecif ied joint 1 four times daily prn severe pain. for 05-29-15 Last Documented On 5 12:05PM By LEON MANCERA PA-C ; [facility] Hydrocodone-Acetaminophen 7. 5-325 MG Tablet 04/29/2015 - 05/26/2015 Provider: LEON MANCERA PA-C Diagnosis: Pain in unspecif ied joint 1 four times daily prn severe pain. Last Documented On 5 11:44AM By LEON MANCERA PA-C ; [facility] Azithromycin 500 MG Tablet 04/27/2015 - 05/02/2015 Pro vider: LEON MANCERA PA-C Diagnosis: One tablet daily Last Documented On 5 12:12PM By LEON MANCERA PA-C ; [facility] Hydrocodone-Acetaminophen 7. 5-325 MG Tablet 04/01/2015 - 04/29/2015 Provider: LEON MANCERA PA-C Diagnosis: JOINT PAIN-JT NE C 1 four times daily prn severe pain. Last Documented On 5 11:26AM By LEON MANCERA PA-C ; [facility] Hydrocodone-Acetaminophen 7. 5-325 MG Tablet 02/26/2015 - 04/01/2015 Provider: LEON MANCERA PA-C Diagnosis: JOINT PAIN-JT NE C 1 four times daily prn sever e pain. DUE 815 May fill on or after 8-8-15. Last Documented On 04/01/2015 8:47AM By KARINA HAYES ; [facility] Hydrocodone-Acetaminophen 7. 5-325 MG Tablet 01/28/2015 - 02/26/2015 Provider: VICKI JOINER D.O. Diagnosis: JOINT PAIN-JT NE C 1 four times daily prn sever e pain. May fill on or after 7-10-15. Last Documented On 02/26/2015 4:07PM By LEON MANCERA PA-C ; [facility] Hydrocodone-Acetaminophen 7. 5-325 MG Tablet 12/30/2014 - 01/28/2015 Provider: LEON MANCERA PA-C Diagnosis: JOINT PAIN-JT NE C 1 four times daily prn sever e pain. May fill on or after -10-15. Last Documented On 01/28/2015 11:34AM By ASHLEY RODRÍGUEZ LPN ; [facility] Hydrocodone-Acetaminophen 7. 5-325 MG Tablet 12/01/2014 - 12/30/2014 Provider: LEON MANCERA PA-C Diagnosis: JOINT PAIN-JT NE C 1 four times daily prn sever e pain. May fill on or after 11-30-14. Last Documented On 12/30/2014 7:59AM By LEON MANCERA PA-C ; [facility] Sertraline HCl 100 MG Tablet 12/01/2014 - 04/01/2015 Altagracia schwartzder: LEON MANCERA PA-C Diagnosis: as directed TAKE 2 ONCE A DAY Last Documented On 04/01/2015 8:46AM By KARINA HAYES ; [facility] Hydrocodone-Acetaminophen 7. 5-325 MG Tablet 10/29/2014 - 12/01/2014 Provider: LEON MANCERA PA-C Diagnosis: JOINT PAIN-JT NE C 1 four times daily prn sever e pain. May fill on or after 10-30-14. Last Documented On 12/01/2014 1:53PM By LEON MANCERA PA-C ; [facility] Hydrocodone-Acetaminophen 7. 5-325 MG Tablet 09/30/2014 - 10/29/2014 Provider: LEON MNACERA PA-C Diagnosis: JOINT PAIN-JT NE C 1 four times daily prn sever e pain. May fill on or after 09-30-14. Last Documented On 10/29/2014 4:31PM By LEON MANCERA PA-C ; [facility] Sulfamethoxazole-TMP DS 800- 160 MG OR TABS 08/21/2014 - 08/28/2014 Provider: LEON MANCERA PA-C Diagnosis: Last Documented On 08/21/2014 9:24AM By LEON MANCERA PA-C ; [facility] Sertraline HCl 100 MG OR TABS 08/19/2014 - 12/01/2014 Provider: LEON MANCERA PA-C Diagnosis: TAKE 2 ONCE A DAY Last Documented On 12/01/2014 1:37PM By KARINA HAYES ; [facility] Sertraline HCl 100 MG OR TABS 08/19/2014 - 12/01/2014 Provider: Diagnosis: TAKE 2 ONCE A DAY Last Documented On 12/01/2014 1:37PM By KARINA HAYES ; [facility] Ciprofloxacin HCl 250 MG OR TABS 08/19/2014 - 08/26/2014 Provider: LEON MANCERA PA-C Diagnosis: URIN TRACT INFEC TION NOS Last Documented On 08/19/2014 8:36AM By LEON MANCERA PA-C ; [facility] metroNIDAZOLE 500 MG OR TABS 08/19/2014 - 08/20/2014 Provider: LEON MANCERA PA-C Diagnosis: VAGINITIS NOS Last Documented On 08/19/2014 8:37AM By LEON MANCERA PA-C ; [facility] HYDROcodone-Acetaminophen 7. 5-325 MG OR TABS 08/19/2014 - 09/30/2014 Provider: LEON MANCERA PA-C Diagnosis: JOINT PAIN-JT NE C prn severe pain. May fill on or after 08-19-14. Last Documented On 11:43AM By LEON MANCERA PA-C ; [facility] HYDROcodone-Acetaminophen 7. 5-325 MG OR TABS 07/13/2014 - 08/19/2014 Provider: VICKI JOINER D.O. Diagnosis: JOINT PAIN-JT NE C prn severe pain. GABLES May fill on or after 07-15-14. Last Documented On 08/19/2014 8:42AM By LEON MANCERA PA-C ; [facility] Azithromycin 500 MG OR TABS 06/30/2014 - 07/05/2014 Pr ovider: LEON MANCERA PA-C Diagnosis: Last Documented On 06/30/2014 2:42PM By LEON MANCERA PA-C ; [facility] HYDROcodone-Acetaminophen 7. 5-325 MG OR TABS 06/15/2014 - 07/13/2014 Provider: VICKI JOINER D.O. Diagnosis: JOINT PAIN-JT NE C prn severe pain. GABGERRY Last Documented On 07/13/2014 11:58AM By MIGUELINA THOMPSON [facility] HYDROcodone-Acetaminophen 7. 5-325 MG OR TABS 04/30/2014 - 06/15/2014 Provider: VICKI JOINER D.O. Diagnosis: JOINT PAIN-JT NE C prn severe pain. GABLES May fill on or after -14 Last Documented On 06/15/2014 11:23AM By MIGUELINA JOINER DO ; [facility] HYDROcodone-Acetaminophen 7. 5-325 MG OR TABS 04/09/2014 - 04/30/2014 Provider: VICKI JOINER D.O. Diagnosis: JOINT PAIN-JT NE C prn severe pain. GABLES May fill on or after -2 0-14 Last Documented On 04/30/2014 12:53PM By MIGUELINA JOINER DO ; [facility] HYDROcodone-Acetaminophen 7. 5-325 MG OR TABS 03/12/2014 - 04/09/2014 Provider: VICKI JOINER D.O. Diagnosis: JOINT PAIN-JT NE C prn severe pain. GABLES Last Documented On 04/09/2014 12:54PM By MIGUELINA JOINER DO ; [facility] HYDROcodone-Acetaminophen 7. 5-325 MG OR TABS 02/09/2014 - 03/12/2014 Provider: LEON MANCERA PA-C Diagnosis: JOINT PAIN-JT NE C prn severe pain. GABLES Last Documented On 03/12/2014 3:47PM By MIGUELINA JOINER DO ; [facility] Ambien 10 MG OR TABS 02/06/2014 - 04/01/2015 Provider: VICKI JOINER D.O. Diagnosis: PERSISTENT INSOM JUWAN prn sleep. INDIO Last Documented On 04/01/2015 8:46AM By KARINA HAYES ; [facility] Cyanocobalamin 1000 MCG/ML I J SOLN 01/13/2014 - 08/19/2014 Provider: LEON MANCERA PA-C Diagnosis: 1ML IM Q MONTH PLEASE DISPEN SE SYRINGES AND NEEDLES 27G X 5/8 IN Last Documented On 08/19/2014 8:21AM By KARINA HAYES ; [facility] HYDROcodone-Acetaminophen 7. 5-325 MG OR [...] 01/09/2014 2:44PM By LEON MANCERA PA-C ; [facility] HYDROcodone-Acetaminophen 7. 5-325 MG OR TABS 11/10/2013 - 12/09/2013 Provider: VICKI JOINER D.O. Diagnosis: JOINT PAIN-JT NE C prn severe pain. GABLES Last Documented On 12/09/2013 10:08PM By MIGUELINA JOINER DO ; [facility] Azithromycin 500 MG OR TABS 10/20/2013 - 10/25/2013 Provider: LEON MANCERA PA-C Diagnosis: STREP SORE THROA T Last Documented On 10/20/2013 11:21AM By STUDENT1 ; [facility] HYDROcodone-Acetaminophen 7. 5-325 MG OR TABS 10/08/2013 - 11/10/2013 Provider: LEON MANCERA PA-C Diagnosis: JOINT PAIN-JT NE C prn severe pain. GABLES 10-10-13 Last Documented On 11/10/2013 12:55PM By MIGUELINA JOINER DO ; [facility] HYDROcodone-Acetaminophen 7. 5-325 MG OR TABS 09/10/2013 - 10/08/2013 Provider: LEON MANCERA PA-C Diagnosis: JOINT PAIN-JT NE C prn severe pain. GABLES 09-10-13 Last Documented On 10/08/2013 3:43PM By LEON MANCERA PA-C ; [facility] HYDROcodone-Acetaminophen 7. 5-325 MG OR TABS 08/11/2013 - 09/10/2013 Provider: LEON MANCERA PA-C Diagnosis: JOINT PAIN-JT NE C prn severe pain. GABLES 08-11-13 Last Documented On 09/10/2013 9:42AM By LEON MANCERA PA-C ; [facility] Cyanocobalamin 1000 MCG/ML I J SOLN 07/14/2013 - 01/13/2014 Provider: LEON MANCERA PA-C Diagnosis: 1ML IM Q MONTH PLEASE DISPEN SE SYRINGES AND NEEDLES 27G X 5/8 IN Last Documented On 4 10:16AM By LEON MANCERA PA-C ; [facility] HYDROcodone-Acetaminophen 7. 5-325 MG OR TABS 07/10/2013 - 08/11/2013 Provider: LEON MANCERA PA-C Diagnosis: JOINT PAIN-JT NE C prn severe pain. GABLES 07-12-13 Last Documented On 4 11:48AM By LEON MANCERA PA-C ; [facility] HYDROcodone-Acetaminophen 7. 5-325 MG OR TABS 06/11/2013 - 07/10/2013 Provider: LEON MANCERA PA-C Diagnosis: JOINT PAIN-JT NE C prn severe pain. GABGERRY 06-12-13 Last Documented On 07/10/2013 4:13PM By LEON MANCERA PA-C ; [facility] Zoloft 100 MG OR TABS 06/09/2013 - 08/19/2014 Provider : VICKI JOINER D.O. Diagnosis: DYSTHYMIC DISORD ER Last Documented On 08/19/2014 8:22AM By KARINA HAYES ; [facility] Zoloft 100 MG OR TABS 06/02/2013 - 06/09/2013 Provider : VICKI JOINER D.O. Diagnosis: DYSTHYMIC DISORD ER Two tablets daily. Last Documented On 06/09/2013 9:07AM By ASHLEY RODRÍGUEZ LPN ; [facility] HYDROcodone-Acetaminophen 7. 5-325 MG OR TABS 05/13/2013 - 06/11/2013 Provider: VICKI JOINER D.O. Diagnosis: JOINT PAIN-JT NE C prn severe pain. [facility] Last Documented On 06/11/2013 7:48AM By LEON MANCERA PA-C ; [facility] Benzonatate 200 MG OR CAPS 04/16/2013 - 05/01/2013 Pro vider: LEON MANCERA PA-C Diagnosis: Last Documented On 04/16/2013 1:44PM By LEON MANCERA PA-C ; [facility] flexeril 10mg OR TABS 04/15/2013 - 08/19/2014 Provider : Diagnosis: Last Documented On 08/19/2014 8:21AM By KARINA HAYES ; [facility] HYDROcodone-Acetaminophen 7. 5-325 MG OR TABS 04/10/2013 - 05/13/2013 Provider: VICKI JOINER D.O. Diagnosis: JOINT PAIN-JT NE C prn severe pain. [facility] May fill on or after 04-11-13. Last Documented On 05/13/2013 8:15AM By MIGUELINA JOINER DO ; [facility] metroNIDAZOLE 500 MG OR TABS 04/02/2013 - 04/03/2013 P rovider: LEON MANCERA PA-C Diagnosis: Last Documented On 04/02/2013 7:32AM By LEON MANCERA PA-C ; [facility] HYDROcodone-Acetaminophen 7. 5-325 MG OR TABS 03/10/2013 - 04/10/2013 Provider: VICKI JOINER D.O. Diagnosis: JOINT PAIN-JT NE C prn severe pain. [facility] May fill on or after 03-12-13. Last Documented On 04/10/2013 4:46PM By MIGUELINA JOINER DO ; [facility] HYDROcodone-Acetaminophen 7. 5-325 MG OR TABS 02/10/2013 - 03/10/2013 Provider: LEON MANCERA PA-C Diagnosis: JOINT PAIN-JT NE C prn severe pain. [facility] Last Documented On 03/10/2013 10:07AM By MIGUELINA JOINER DO ; [facility] Benzonatate 200 MG OR CAPS 01/24/2013 - 04/16/2013 Pro vider: LEON MANCERA PA-C Diagnosis: Last Documented On 04/16/2013 1:43PM By LEON MANCERA PA-C ; [facility] Trimethoprim 100 MG OR TABS 01/20/2013 - 10/20/2013 Provider: VICKI JOINER D.O. Diagnosis: URIN TRACT INFEC TION NOS Last Documented On 10/20/2013 10:33AM By KARINA HAYES ; [facility] Cheratussin AC 100-10 MG/5ML OR SYRP 01/16/2013 - 01/26/2013 Provider: LEON J MANCERA PA-C Diagnosis: BRONCHITIS NOS take 1 - 2 tsp AT BEDTIME FO R COUGH- DO NOT USE WITH HYDROCODONE [facility] Last Documented On 01/16/2013 8:45AM By LEON MANCERA PA-C ; [facility] Zithromax Z-Dante 250 MG OR TABS 01/16/2013 - 01/21/2013 Provider: LEON MANCERA PA-C Diagnosis: BRONCHITIS NOS Last Documented On 01/16/2013 8:46AM By LEON MANCERA PA-C ; [facility] Sulfamethoxazole-TMP DS 800-160 MG OR TABS 01/10/2013 - 01/16/2013 Provider: VICKI JOINER D.O. Diagnosis: URIN TRACT INFECTION NOS until gone. Last Documented On 01/16/2013 8:08AM By KARINA HAYES ; [facility] HYDROcodone-Acetaminophen 7. 5-325 MG OR TABS 01/08/2013 - 02/10/2013 Provider: VICKI JOINER D.O. Diagnosis: JOINT PAIN-JT NE C prn severe pain. [facility] Last Documented On 3 11:14AM By LEON MANCERA PA-C ; [facility] levoFLOXacin 250 MG OR TABS 12/27/2012 - 01/16/2013 Provider: VICKI JOINER D.O. Diagnosis: URINARY FREQUENC Y until gone. Last Documented On 01/16/2013 8:08AM By KARINA HAYES ; [facility] HYDROcodone-Acetaminophen 7. 5-325 MG OR TABS 12/07/2012 - 01/08/2013 Provider: VICKI OJINER D.O. Diagnosis: JOINT PAIN-JT NE C prn severe pain. [facility] Last Documented On 01/08/2013 2:16PM By MIGUELINA JOINER DO ; [facility] Meloxicam 15 MG OR TABS 12/05/2012 - 11/30/2013 Provider: VICKI JOINER D.O. Diagnosis: Joint Pain-Lower /Leg Last Documented On 12/05/2012 8:30AM By ASHLEY RODRÍGUEZ LPN ; [facility] Ambien 10 MG OR TABS 12/05/2012 - 02/06/2014 Provider: VICKI JOINER D.O. Diagnosis: PERSISTENT INSOM JUWAN prnBURRUS Last Documented On 02/06/2014 7:40AM By MIGUELINA JOINER DO ; [facility] HYDROcodone-Acetaminophen 7. 5-325 MG OR TABS 11/11/2012 - 12/07/2012 Provider: LEON MANCERA PA-C Diagnosis: JOINT PAIN-JT NE C prn severe pain. [facility] Last Documented On 12/07/2012 9:00AM By MIGUELINA JOINER DO ; [facility] Ciprofloxacin HCl 250 MG OR TABS 10/11/2012 - 10/14/2012 Provider: GHULAM US Diagnosis: Last Documented On 3 1:49PM By GHULAM US ; [facility] HYDROcodone-Acetaminophen 7. 5-325 MG OR TABS 10/11/2012 - 11/11/2012 Provider: GHULAM US Diagnosis: JOINT PAIN-JT NE C prn severe pain. [facility] Last Documented On 3 12:06PM By LEON MANCERA PA-C ; [facility] clonazePAM 0.5 MG OR TABS 09/17/2012 - 08/19/2014 Provider: VICKI JOINER D.O. Diagnosis: ANXIETY STATE NO S prn anxiety. NMT 2/24 hours [facility] Last Documented On 08/19/2014 8:21AM By KARINA HAYES ; [facility] Ciprofloxacin HCl 250 MG OR TABS 09/12/2012 - 10/11/2012 Provider: LEON MANCERA PA-C Diagnosis: Last Documented On 3 1:49PM By GHULAM US ; [facility] HYDROcodone-Acetaminophen 7. 5-325 MG OR TABS 09/11/2012 - 10/11/2012 Provider: VICKI JOINER D.O. Diagnosis: JOINT PAIN-JT NE C prn severe pain. [facility] Last Documented On 3 1:01PM By GHULAM US ; [facility] HYDROcodone-Acetaminophen 7. 5-325 MG OR TABS 08/08/2012 - 09/11/2012 Provider: VICKI JOINER D.O. Diagnosis: JOINT PAIN-JT NE C prn severe pain. [facility] Last Documented On 09/11/2012 8:04AM By MIGUELINA JOINER DO ; [facility] Gentamicin Sulfate 0.3% OP SOLN 07/31/2012 - 10/16/2012 Provider: LEON MANCERA PA-C Diagnosis: 2 GTTS BOTH EYES Q 4H WHILE AWAKE X 7 DAYS Last Documented On 10/16/2012 3:59PM By CARLOS DOMINIQUE LPN ; [facility] Naprosyn 500 MG OR TABS 07/26/2012 - 09/03/2012 Provider: LEON MANCERA PA-C Diagnosis: SPRAIN OF KNEE & LEG NOS Last Documented On 09/03/2012 2:33PM By BECKY POLK LPN ; [facility] Zithromax Z-Dante 250 MG OR TABS 07/19/2012 - 01/16/2013 Provider: GHULAM GEORGE OVERCOILER-C Diagnosis: Last Documented On 01/16/2013 8:45AM By LEON MANCERA PA-C ; [facility] HYDROcodone-Acetaminophen 7. 5-325 MG OR TABS 07/04/2012 - 08/08/2012 Provider: VICKI JOINER D.O. Diagnosis: JOINT PAIN-JT NE C prn severe pain. [facility] Last Documented On 08/08/2012 10:34AM By MIGUELINA JOINER DO ; [facility] Metaxalone 800 MG OR TABS 06/03/2012 - 10/16/2012 Prov ider: LEON MANCERA PA-C Diagnosis: Cervicalgia Last Documented On 10/16/2012 3:59PM By CARLOS DOMINIQUE LPN ; [facility] HYDROcodone-Acetaminophen 7. 5-325 MG OR TABS 06/03/2012 - 07/04/2012 Provider: VICKI JOINER D.O. Diagnosis: JOINT PAIN-JT NE C prn severe pain. [facility] Last Documented On 07/04/2012 10:45AM By MIGUELINA JOINER DO ; [facility] Levaquin 250 MG OR TABS 05/29/2012 - 06/01/2012 Provid er: VICKI JOINER D.O. Diagnosis: Last Documented On 05/29/2012 11:05AM By ASHLEY RODRÍGUEZ LPN ; [facility] Sudafed 30 MG OR TABS 05/24/2012 - 06/26/2012 Provider : LEON MANCERA PA-C Diagnosis: Last Documented On 2 10:03AM By SALLY VELÁSQUEZ MA ; [facility] valACYclovir HCl 1 GM OR TABS 05/15/2012 - 06/26/2012 Provider: LEON MANCERA PA-C Diagnosis: Last Documented On 2 10:03AM By SALLY VELÁSQUEZ MA ; [facility] HYDROcodone-Acetaminophen 7. 5-325 MG OR TABS 04/30/2012 - 06/03/2012 Provider: VICKI JOINER D.O. Diagnosis: JOINT PAIN-JT NE C prn severe pain. [facility] Last Documented On 06/03/2012 5:18PM By MIGUELINA JOINER DO ; [facility] HYDROcodone-Acetaminophen 7. 5-325 MG OR TABS 03/26/2012 - 04/30/2012 Provider: VICKI JOINER D.O. Diagnosis: JOINT PAIN-JT NE C prn severe pain. [facility] Last Documented On 04/30/2012 12:57PM By MIGUELINA JOINER DO ; [facility] Zoloft 100 MG OR TABS 02/27/2012 - 06/02/2013 Provider : VICKI JOINER D.O. Diagnosis: DYSTHYMIC DISORD ER Two tablets daily. Last Documented On 06/02/2013 4:55PM By MIGUELINA JOINER DO ; [facility] HYDROcodone-Acetaminophen 7. 5-325 MG OR TABS 02/21/2012 - 03/26/2012 Provider: VICKI JOINER D.O. Diagnosis: JOINT PAIN-JT NE C prn severe pain. [facility] Last Documented On 03/26/2012 9:39AM By MIGUELINA JOINER DO ; [facility] Venlafaxine HCl 75 MG OR TABS 02/20/2012 - 03/06/2012 Provider: VICKI JOINER D.O. Diagnosis: DYSTHYMIC DISORD ER (this is to replace her Zoloft Rx). Last Documented On 03/06/2012 2:02PM By CARLOS DOMINIQUE LPN ; [facility] Zoloft 100 MG OR TABS 12/07/2011 - 02/27/2012 Provider : Diagnosis: Last Documented On 02/27/2012 8:21AM By MIGUELINA JOINER DO ; [facility] raNITIdine HCl 150 MG OR TABS 12/07/2011 - 02/20/2012 Provider: Diagnosis: Last Documented On 02/20/2012 3:55PM By CARLOS DOMINIQUE LPN ; [facility] Ambien 10 MG OR TABS 12/07/2011 - 12/05/2012 Provider: Diagnosis: prn Last Documented On 12/05/2012 12:54PM By ASHLEY RODRÍGUEZ LPN ; [facility] Cyanocobalamin 1000 MCG/ML IJ SOLN 12/07/2011 - 2011 Provider: Diagnosis: q 3 weeks Last Documented On 06/03/2012 9:19AM By LEON MANCERA PA-C ; [facility] HYDROcodone-Acetaminophen 7.5-325 MG OR TABS 2 - 03/06/2012 Provider: Diagnosis: prn Last Documented On 03/06/2012 2:02PM By CARLOS DOMINIQUE LPN ; [facility] Valtrex 1 GM OR TABS 09/13/2011 - 09/13/2011 Provider: Diagnosis: Last Documented On 05/15/2012 7:54AM By SALLY VELÁSQUEZ MA ; [facility] Medications Administered Includes: Administered Medications in patient's chart Medications Administered Diagnosis Date Pro vider B-12 1000 MCG SL SUBL 06/21/2013 KAY JOINER D.O. Last Documented On 3 10:03AM By RICK HAYES ; [facility] Cyanocobalamin 1000 MCG/ML IJ SOLN 2012 VICKI DavisOYue injected into left delt. BG Last Documented On 3 4:06PM By SALLY VELÁSQUEZ MA ; [facility] Cyanocobalamin 1000 MCG/ML IJ SOLN 2011 VICKI DavisOYue INJECTED INTO RIGHT DELT KSC Last Documented On 2 9:53AM By SALLY VELÁSQUEZ MA ; [facility] Cyanocobalamin 1000 MCG/ML IJ SOLN 2012 VICKI Reid.OYue GIVEN IN LEFT DELTOID PER MB/MA Last Documented On 3 1:50PM By KARINA HAYES ; [facility] Cyanocobalamin 1000 MCG/ML IJ SOLN 2011 VICKI Reid.O. INJECTED 1 ML INTO LEFT DELT MB Last Documented On 2 1:55PM By SALLY VELÁSQUEZ MA ; [facility] Cyanocobalamin 1000 MCG/ML IJ SOLN 2012 VICKI Reid.O. INJECTED IN R DELT. KSC Last Documented On 3 1:09PM By SALLY VELÁSQUEZ MA ; [facility] Cyanocobalamin 1000 MCG/ML IJ SOLN 2011 VICKI Reid.O. Last Documented On 2 1:11PM By ASHLEY RODRÍGUEZ LPN ; [facility] Cyanocobalamin 1000 MCG/ML IJ SOLN 2012 VICKI Reid.OYue GIVEN IN RIGHT DELTOID MB/MA Last Documented On 3 1:49PM By KARINA HAYES ; [facility] Cyanocobalamin 1000 MCG/ML IJ SOLN 2011 VICKI Reid.O. INJECTED 1 ML RIGHT DELT PER ELPIDIO Last Documented On 2 8:21AM By SALLY VELÁSQUEZ MA ; [facility] Cyanocobalamin 1000 MCG/ML IJ SOLN 2012 LEON ZUNIGA-C INJECTED IN LEFT DELT ELPIDIO Last Documented On 3 12:58PM By SALLY VELÁSQUEZ MA ; [facility] Cyanocobalamin 1000 MCG/ML IJ SOLN 2011 VICKI Reid.O. GIVEN RUOQ PER DKS Last Documented On 2 4:01PM By CARLOS DOMINIQUE LPN ; [facility] Cyanocobalamin 1000 MCG/ML IJ SOLN 2012 LEON MANCERA PA-C B12 GIVEN R DELTOID PER DKS Last Documented On 3 4:21PM By CARLOS DOMINIQUE LPN ; [facility] Cyanocobalamin 1000 MCG/ML IJ SOLN 2012 VICKI JOINER D.O. INJECTED IN RIGHT GLUT. [place] Last Documented On 3 9:36AM By SALLY VELÁSQUEZ MA ; [facility] Cyanocobalamin 1000 MCG/ML IJ SOLN 2014 LEON J MANCERA PA-C GIVEN IN RIGHT DELTOID PER PAULA/REE Last Documented On 6 11:35AM By ASHLEY RODRÍGUEZ LPN ; [facility] DEPO-Medrol 80 MG/ML IJ SUSP 07/26/2012 LEON J MANCERA PA-C GIVEN IN THE LEFT GLUT PER K LC/SECRETARY ADMINISTRATIVE ASSISTANT. 20 MIN RECHECK WITH NO REACTION. Last Documented On 3 1:56PM By ASHLEY RODRÍGUEZ LPN ; [facility] Ketorolac Tromethamine 60 MG/2ML IJ SOLN 07/26/2012 LEON J MANCERA PA-C GIVEN IN THE RIGHT GLUT PER KLC/SECRETARY ADMINISTRATIVE ASSISTANT. 20 MIN RECHECK WITH NO REACTION Last Documented On 3 1:54PM By ASHLEY RODRÍGUEZ LPN ; [facility] Results Includes: Results from 10/09/2023 through 10/08/2024 No Results Recorded For Specified Dates History of Present Illness History of Present Illness not supported for this document type No History of Present Illness Recorded Social History Description Last Updated Current smoker 11/14/2016 Last Documented On 7 10:05AM ; [facility] Social history unchanged 11/14/2016 Last Documented On 7 10:05AM ; [facility] A social drinker 02/14/2016 Last Documented On 6 11:32AM ; [facility] Alcohol use 08/19/2014 Last Documented On 5 9:03AM ; [facility] Good exercise habits 08/19/2014 Last Documented On 5 9:03AM ; [facility] No caffeine use 08/19/2014 Last Documented On 5 9:03AM ; [facility] Not using drugs 08/19/2014 Last Documented On 5 9:03AM ; [facility] Sexually active 08/19/2014 Last Documented On 5 9:03AM ; [facility] Tobacco use 08/19/2014 Last Documented On 5 9:03AM ; [facility] Current smoker 09/03/2012 Last Documented On 3 3:05PM ; [facility] Smoking status : Current everyday smoker 12/07/2011 Last Documented On 2 10:51PM ; [facility] Medical History Includes: Medical History in patient's chart Description Last Updated Taking OTC allergy medication 05/18/2017 Last Documented On 7 10:02AM ; [facility] Taking OTC cold medication 05/18/2017 Last Documented On 7 10:02AM ; [facility] Taking OTC medications for cough 017 Last Documented On 7 10:02AM ; [facility] Taking OTC pain medication /fever. Using Tylenol 05/18/2017 Last Documented On 7 10:02AM ; [facility] Medication history Received controlled s ubstance from another provider 02/14/2016 Last Documented On 6 11:32AM ; [facility] No previous hospitalization for a drug o verdose 02/14/2016 Last Documented On 6 11:32AM ; [facility] No recent change in medical history 01/21 Last Documented On 6 11:32AM ; [facility] 2 08/19/2014 Last Documented On 5 9:03AM ; [facility] Last pap smear date 201108/19/2014 Last Documented On 5 9:03AM ; [facility] Para 1 08/19/2014 Last Documented On 5 9:03AM ; [facility] LMP: 2009 - Mirena 06/17/2013 Last Documented On 3 9:59PM ; [facility] Family History Includes: Family History in patient's chart Description Last Updated Family history unchanged 02/14/2016 Last Documented On 6 11:32AM ; [facility] Maternal history of heart disease 2015 Last Documented On 6 12:16PM ; [facility] Paternal history of acute myocardial inf arction 11/03/2015 Last Documented On 6 12:16PM ; [facility] Family history reviewed - unchanged sinc e last visit 06/25/2015 Last Documented On 5 12:12PM ; [facility] Review of Systems Review of Systems not [...] (SD) 1 08/06/2012 Right Arm Complete (Administered) [facility] Last Documented On 3 8:01AM ; [facility] Influenza (Quadrivalent)36 mo.& older PF 0.5ml (SD) 2 05/30/2013 Left Arm Complete (Administered) [facility] Last Documented On 06/11/2013 8:24AM ; [facility] Note: VIS 02-14-13 Influenza (Quadrivalent)36 mo.& older PF 0.5ml (SD) 3 05/16/2016 Left Arm Complete (Administered) [facility] Last Documented On 6 8:40AM ; [facility] Allergies Includes: Active, inactive, and resolved Allergies Substance Type Reaction Onset Date Resolved Date Statu s Penicillin V Potassium Allergy Skin Rash es / Eruption of skin, Hives / Urticaria, Nausea, Vomiting, Diarrhea / Diarrheal disorder 05/02/2012 Active Last Documented On 7 9:19AM ; [facility] Clinical Notes Includes: Signed Clinical Notes starting from 08/11/2022 No Clinical Notes Recorded
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
== END 2024-10-08 09:46 | disposition home or self-care (01) ==
PROVIDERS: Emergency Provider Registered Nurse
DX: S60.212A Contusion of left wrist, initial encounter (principal); S20.212A Contusion of left front wall of thorax, initial encounter; V47.5XXA Car driver injured in collision with fixed or stationary object in traffic accident, initial encounter; F41.9 Anxiety disorder, unspecified; Z96.652 Presence of left artificial knee joint; F17.210 Nicotine dependence, cigarettes, uncomplicated
CPT/HCPCS: 71101; 73110; 99214; G0463